=== PATIENT | male | born 1965 | race Hispanic/Latino ===

== ENCOUNTER 2021-11-19 22:45 | Emergency (ER) | payer OTHER ==
--- OUTSIDE RECORDS SUMMARY | 2021-11-19 22:52 | XMS REPORT | Continuity of Care Document ---
:[address] [facility] t Address [address] [place] [address] Care Team Providers Name Role Phone Sofiya MASTERS Primary Care Physician RENETTA Attending Clinician Unavailable RENETTA Attending Clinician Unavailable Clarita ELIZALDE Attending Clinician Unavailable Doctor Unassigned, Name Attending Clinician Unavailable Luis Arriaza MD Attending Clinician LUIS ARRIAZA Attending Clinician Unavailable Renetta WEST Attending Clinician Tyrese Schmidt DO Attending Clinician Obed SUNSHINE Attending Clinician Unavailable Teresa Iglesias Attending Clinician Skylar MASTERS Attending Clinician Lab, Fam Pob I Attending Clinician Unavailable DR BRIANNA Attending Clinician Unavailable Skylar MASTERS Admitting Clinician DR BRIANNA Admitting Clinician Unavailable Payers Payer Name Policy Type Policy Number Effective Date Expiration Date S [facility] - [id number] 2018 OUT OF STATE 00:00:00 [facility] [id number] 2020 00:00:00 Problems Condition Condition Condition Status Onset Resolution Last Treating Co mments Source Name Details Category Date Date Treatment Clinician Date Pneumonia Pneumonia Disease Active Uni vers due to due to 2- ity of COVID-19 COVID-19 00:00: [place] virus virus 00 Medical Branch Hypoxia Hypoxia Disease Active Univers 2-22 ity of 00:00: [address] Branch Type 2 Type 2 Disease Active [facility] [place] [facility] diabetes diabetes 04-14 ity of mellitus mellitus 00:00: [place] without without 00 Medical complicati complicati Br anch on, on, without without long-term long-term current current use of use of insulin insulin Allergies, Adverse Reactions, Alerts Allergy Allergy Status Severity Reaction(s) Onset Inactive Treating Comm ents Source Name Type Date Date Clinician Penicill Propensi Active Unknown - Uni vers in ty to See comments 04-07 ity of adverse 00:00: [place] reaction 00 Medical s Branch PENICILL DRUG Active Unknown-Cmnt Un colleen IN INGREDI 04-07 ity of 00:00: [place] 00 Medical Branch IODINE Drug Active Anaphylaxis Unive rs AND Class 04-07 ity of IODIDE 00:00: [place] CONTAINI 00 Medical Branch PRODUCTS Penicill Propensi Active Unknown - Uni vers in ty to See comments 04-07 ity of adverse 00:00: [place] reaction 00 Medical s Branch Iodine Propensi Active Anaphylaxis Uni vers And ty to 04-07 ity of Iodide adverse 00:00: [place] Containi reaction 00 Medica l ng s Branch Products Social History Social Habit Start Date Stop Date Quantity Comments Source Exposure to Not sure [facility] SARS-CoV-2 [place] [facility] (event) Branch Tobacco use and 2020-11-28 2020-11-28 Never used Universit y of exposure 00:00:00 00:00:00 [facility] Branch Alcohol intake 2020-11-28 2020-11-28 Current drinker Unive rsity of 00:00:00 00:00:00 of alcohol [place] [facility] (finding) Branch Sex Assigned At [address] 1965 [facility] 00:00:00 00:00:00 Smoking Status Start Date Stop Date Source Tobacco smoking [facility] consumption unknown Former smoker 2020-11-28 00:00:00 2020-11-28 [facility] [place] 00:00:00 Medical Branch Medications Ordered Filled Start Stop Current Ordering Indication Dosage Frequency Signature Comments Components Source Medication Medication Date Date Medication? Clinician (SIG) Name Name fenofibrate Yes [id number] 145mg Take 1 Univers 145 mg 3-23 tablet by ity of tablet 00:00: mouth [place] 00 daily. Medical Branch lisinopriL Yes [id number] 5mg Take 1 U nivers 5 mg tablet 3-23 tablet by ity of 00:00: mouth [place] 00 daily. Medical Branch metformin 2020-0 Yes [id number] 500mg Take 1 Univers ER 500 mg 3-23 tablet by ity o f 24 hr 00:00: mouth 2 [place] tablet 00 (two) Medical times Branch daily. fenofibrate 2020-0 Yes [id number] 145mg Take 1 Univers 145 mg 3-23 tablet by ity of tablet 00:00: mouth [place] 00 daily. Medical Branch lisinopriL 2020-0 Yes [id number] 5mg Take 1 U nivers 5 mg tablet 3-23 tablet by ity of 00:00: mouth [place] 00 daily. Medical Branch metformin 2020-0 Yes [id number] 500mg Take 1 Univers ER 500 mg 3-23 tablet by ity o f 24 hr 00:00: mouth 2 [place] tablet 00 (two) Medical times Branch daily. fenofibrate 2020-0 Yes [id number] 145mg Take 1 Univers 145 mg 3-23 tablet by ity of tablet 00:00: mouth [place] 00 daily. Medical Branch lisinopriL 2020-0 Yes [id number] 5mg Take 1 U nivers 5 mg tablet 3-23 tablet by ity of 00:00: mouth [place] 00 daily. Medical Branch metformin 2020-0 Yes [id number] 500mg Take 1 Univers ER 500 mg 3-23 tablet by ity o f 24 hr 00:00: mouth 2 [place] tablet 00 (two) Medical times Branch daily. fenofibrate 2020-0 Yes [id number] 145mg Take 1 Univers 145 mg 3-23 tablet by ity of tablet 00:00: mouth [place] 00 daily. Medical Branch lisinopriL 2020-0 Yes [id number] 5mg Take 1 U nivers 5 mg tablet 3-23 tablet by ity of 00:00: mouth [place] 00 daily. Medical Branch metformin 2020-0 Yes [id number] 500mg Take 1 Univers ER 500 mg 3-23 tablet by ity o f 24 hr 00:00: mouth 2 [place] tablet 00 (two) Medical times Branch daily. fenofibrate 2020-0 Yes [id number] 145mg Take 1 Univers 145 mg 3-23 tablet by ity of tablet 00:00: mouth [place] 00 daily. Medical Branch lisinopriL 2020-0 Yes [id number] 5mg Take 1 U nivers 5 mg tablet 3-23 tablet by ity of 00:00: mouth [place] 00 daily. Medical Branch metformin 0 Yes [id number] 500mg Take 1 Univers ER 500 mg 3-23 tablet by ity o f 24 hr 00:00: mouth 2 [place] tablet 00 (two) Medical times Branch daily. fenofibrate Yes [id number] 145mg Take 1 Univers 145 mg 3-23 tablet by ity of tablet 00:00: mouth [place] 00 daily. Medical Branch lisinopriL Yes [id number] 5mg Take 1 U nivers 5 mg tablet 3-23 tablet by ity of 00:00: mouth [place] 00 daily. Medical Branch metformin Yes [id number] 500mg Take 1 Univers ER 500 mg 3-23 tablet by ity o f 24 hr 00:00: mouth 2 [place] tablet 00 (two) Medical times Branch daily. fenofibrate Yes [id number] 145mg Take 1 Univers 145 mg 3-23 tablet by ity of tablet 00:00: mouth [place] 00 daily. Medical Branch lisinopriL Yes [id number] 5mg Take 1 U nivers 5 mg tablet 3-23 tablet by ity of 00:00: mouth [place] 00 daily. Medical Branch metformin Yes [id number] 500mg Take 1 Univers ER 500 mg 3-23 tablet by ity o f 24 hr 00:00: mouth 2 [place] tablet 00 (two) Medical times Branch daily. fenofibrate 0 Yes [id number] 145mg Take 1 Univers 145 mg 3-23 tablet by ity of tablet 00:00: mouth [place] 00 daily. Medical Branch lisinopriL Yes [id number] 5mg Take 1 U nivers 5 mg tablet 3-23 tablet by ity of 00:00: mouth [place] 00 daily. Medical Branch metformin Yes [id number] 500mg Take 1 Univers ER 500 mg 3-23 tablet by ity o f 24 hr 00:00: mouth 2 [place] tablet 00 (two) Medical times Branch daily. fenofibrate Yes [id number] 145mg Take 1 Univers 145 mg 3-23 tablet by ity of tablet 00:00: mouth [place] 00 daily. Medical Branch lisinopriL Yes [id number] 5mg Take 1 U nivers 5 mg tablet 3-23 tablet by ity of 00:00: mouth [place] 00 daily. Medical Branch metformin Yes [id number] 500mg Take 1 Univers ER 500 mg 3-23 tablet by ity o f 24 hr 00:00: mouth 2 [place] tablet 00 (two) Medical times Branch daily. Rough And Ready-3 Yes Take by [employer] Fatty Acids 3-11 mouth 2 ity o f (FISH OIL 00:23: (two) [place] CONCENTRATE 32 times Medical ) 1,000 mg daily. Branch Cap Rough And Ready-3 Yes Take by [employer] Fatty Acids 3-11 mouth 2 ity o f (FISH OIL 00:23: (two) [place] CONCENTRATE 32 times Medical ) 1,000 mg daily. Branch Cap Rough And Ready-3 Yes Take by [employer] Fatty Acids 3-11 mouth 2 ity o f (FISH OIL 00:23: (two) [place] CONCENTRATE 32 times Medical ) 1,000 mg daily. Branch Cap Rough And Ready-3 Yes Take by [employer] Fatty Acids 3-11 mouth 2 ity o f (FISH OIL 00:23: (two) [place] CONCENTRATE 32 times Medical ) 1,000 mg daily. Branch Cap Rough And Ready-3 Yes Take by [employer] Fatty Acids 3-11 mouth 2 ity o f (FISH OIL 00:23: (two) [place] CONCENTRATE 32 times Medical ) 1,000 mg daily. Branch Cap Rough And Ready-3 Yes Take by [employer] Fatty Acids 3-11 mouth 2 ity o f (FISH OIL 00:23: (two) [place] CONCENTRATE 32 times Medical ) 1,000 mg daily. Branch Cap Rough And Ready-3 Yes Take by [employer] Fatty Acids 3-11 mouth 2 ity o f (FISH OIL 00:23: (two) [place] CONCENTRATE 32 times Medical ) 1,000 mg daily. Branch Cap Rough And Ready-3 Yes Take by Univer s Fatty Acids 3-11 mouth 2 ity o f (FISH OIL 00:23: (two) [place] CONCENTRATE 32 times Medical ) 1,000 mg daily. Branch Cap Rough And Ready-3 Yes Take by Univer s Fatty Acids 3-11 mouth 2 ity o f (FISH OIL 00:23: (two) [place] CONCENTRATE 32 times Medical ) 1,000 mg daily. Branch Cap Rough And Ready-3 Yes Take by [facility] s Fatty Acids 3-11 mouth 2 ity o f (FISH OIL 00:23: (two) [place] CONCENTRATE 32 times Medical ) 1,000 mg daily. Branch Cap Rough And Ready-3 [facility] mouth 2 ity o f (FISH OIL 00:23: (two) [place] CONCENTRATE 32 times Medical ) 1,000 mg daily. Branch Cap Rough And Ready-3 0 Yes [facility]-11 mouth 2 ity o f (FISH OIL 00:23: (two) [place] CONCENTRATE 32 times Medical ) 1,000 mg daily. Branch Cap dexAMETHaso Yes 4mg 4 mg, Unive rs ne 3-10 Oral, ity of (DECADRON) 15:00: DAILY, [place] tablet 4 mg 00 First dose Me dical on Wed11/13/20 at 0900, Until Discontinu ed, Routine methylPREDN 2020-0 Yes [id number] Take by [facility] [place] [facility] ISolone 4 3-10 mouth ity of mg tablets 00:00: [place]-INSTRU [place] 00 CTIONS. Medical follow Branch package directions metoclopram 2020-0 Yes [id number] 5mg Take 1 Univers evgeny HCl 5 3-10 tablet by ity o f mg tablet 00:00: mouth [place] 00 every 8 Medical (eight) Branch hours as needed for Nausea and Vomiting (N/V) or Gastroesop hageal reflux. methylPREDN 2020-0 Yes [id number] Take by Univers ISolone 4 3-10 mouth ity of mg tablets 00:00: SEE-INSTRU [place] 00 CTIONS. Medical follow Branch package directions metoclopram 2020-0 Yes [id number] 5mg Take 1 Univers evgeny HCl 5 3-10 tablet by ity o f mg tablet 00:00: mouth [place] 00 every 8 Medical (eight) Branch hours as needed for Nausea and Vomiting (N/V) or Gastroesop hageal reflux. methylPREDN 2021-0 Yes [id number] Take by Univers ISolone 4 3-10 mouth ity of mg tablets 00:00: SEE-INSTRU [place] 00 CTIONS. Medical follow Branch package directions metoclopram 2021-0 Yes [id number] 5mg Take 1 Univers evgeny HCl 5 3-10 tablet by ity o f mg tablet 00:00: mouth [place] 00 every 8 Medical (eight) Branch hours as needed for Nausea and Vomiting (N/V) or Gastroesop hageal reflux. methylPREDN 2020- No [id number] Take by Univers ISolone 4 3-10 -23 mouth ity of mg tablets 00:00: 00:00 SEE-INSTRU [place] 00 :00 CTIONS. Medical follow Branch package directions metoclopram 2020- No [id number] 5mg Take 1 Univers evgeny HCl 5 3-10 -23 tablet by ity of mg tablet 00:00: 00:00 mouth [place] 00 :00 every 8 Medical (eight) Branch hours as needed for Nausea and Vomiting (N/V) or Gastroesop hageal reflux. methylPREDN 2020- No [id number] Take by [facility] [place] [facility] ISolone 4 3-10 - mouth ity of mg tablets 00:00: 00:00 SEE-INSTRU [place] 00 :00 CTIONS. Medical follow Branch package directions metoclopram 2020- No [id number] 5mg Take 1 Univers evgeny HCl 5 3-10 - tablet by ity of mg tablet 00:00: 00:00 mouth [place] 00 :00 every 8 Medical (eight) Branch hours as needed for Nausea and Vomiting (N/V) or Gastroesop hageal reflux. methylPREDN 2020- No [id number] Take by [facility] [place] [facility] ISolone 4 3-10 - mouth ity of mg tablets 00:00: 00:00 SEE-INSTRU [place] 00 :00 CTIONS. Medical follow Branch package directions metoclopram 2020- No [id number] 5mg Take 1 Univers evgeny HCl 5 3-10 -23 tablet by ity of mg tablet 00:00: 00:00 mouth [place] 00 :00 every 8 Medical (eight) Branch hours as needed for Nausea and Vomiting (N/V) or Gastroesop hageal reflux. enoxaparin Yes 40mg 40 mg, Unive rs (LOVENOX) 3-09 Subcutaneo ity of injection 14:00: us, Q24H, [place] 40 mg 00 First dose Medical on Wed Branch 11/12/20 at 0800, Until Discontinu ed, Routine insulin NPH Yes 10U 10 Units, U nivers (HUMULIN N) 11-08 Subcutaneo it y of injection 03:00: us, QHS, [place] 10 Units 00 First dose Medic al on [facility] Branch 11/07/20 at 2100, Until Discontinu ed, Routine insulin NPH Yes 20U 20 Units, U nivers (HUMULIN N) 11-07 Subcutaneo it y of injection 19:00: [place], DAILY, [place] 20 Units 00 First dose Medic al on [facility] Branch 11/07/20 at 1300, Until Discontinu ed, Routine metoclopram Yes 10mg 10 mg, Univ ers evgeny HCl 11-04 Slow IV ity of (REGLAN) 05:00: Push, Q8H, [place] injection 00 First dose Medi delores 10 mg on [facility] 11/03/20 at 2300, Until Discontinu ed, Routine pantoprazol Yes 40mg 40 mg, IV U nivers e 11-04 Piggyback, ity of (PROTONIX) 05:00: Q12H, [place] 40 mg in 00 First dose Medic al NaCl 0.9% on [facility] (NS) 100 mL 11/03/20 at MINI-BAG 2300, Until Discontinu ed, 100 mL baclofen 2020- No 5mg 5 mg, Univers (LIORESAL) 11-04 Oral, BID, it y of tablet 5 mg 05:00: 03:06 3 doses, [place] 00 :00 First dose Medical on [facility] 11/03/20 at 2300, Last dose on Wed11/04/20 at 2000, Routine famotidine 2020- No 20mg 20 mg, Univ ers (PEPCID AC) 11-04 Oral, BID, i ty of tablet 20 02:00: 04:54 First dose [place] mg 00 :12 (after Medical last Branch modificati on) on [place] 11/03/20 at 2000, Until Discontinu ed, Routine maalox:diph Yes 15mL 15 mL, Univ ers enhydrAMINE 11-03 Oral, ity of :lidocaine 23:29: Q4HPRN, [place] 2 % viscous 23 Starting Medi delores 1:1:1 [place] Branch (FIRST-MOUT 11/03/20 at [facility]) 1729, oral Until suspension Discontinu 15 mL ed, Routine, GERD famotidine 2020- No 20mg 20 mg, [facility] ers (PEPCID AC) 11-02 03-01 Oral, ity of tablet 20 02:58: 00:48 BIDPRN, [place] mg 06 :21 Starting Medical Fri Branch 11/01/20 at 2058, Until 11/03/20 at 1848, Routine, Heartburn sodium Yes 1{spray 1 [place], [facility] ers chloride 10-30 } Nasal, ity of (OCEAN MIST 16:34: PRN, [place] NASAL) 0.65 33 Starting Medi delores % nasal Wed Branch spray 1 10/30/20 at [place] 1034, Until Discontinu ed, Routine, Surgery/Pr ocedure, use as needed for irritation from high flow oxygen furosemide Yes 20mg 20 mg, IV Un colleen (LASIX) 10-30 Push, ity of injection 15:00: DAILY, [place] 20 mg 00 First dose Medical on Wed Branch 10/30/20 at 0900, Until Discontinu ed, Routine fenofibrate Yes 134mg 134 mg, Un colleen micronized 23 Oral, ity of (LOFIBRA) 15:00: DAILY, [place] capsule 134 00 First dose Me dical mg on Wed Branch 10/29/20 at 0900, Until Discontinu ed ergocalcife Yes [id number] 50,000 Un colleen rol 23 Units, ity of (vitamin 15:00: Oral, [place] d2) 00 QWEEKLY, Medical (CALCIFEROL First dose Br anch ) capsule on Tue 50,000 10/29/20 at Units 0900, Until Discontinu ed, Routine dexamethaso 2020- No 6mg 6 mg, IV U nivers ne 10-29 03-10 Piggyback, ity of (DECADRON 15:00: 00:12 DAILY, [place] PHOSPHATE) 00 :07 First dose Med ical 6 mg in on Wed Branch NaCl 0.9% 2/23/21 at (NS) 50 mL 0900, piggyback Until Discontinu ed, 50 mL enoxaparin 2020- No 40mg 40 mg, Univ ers (LOVENOX) 10-29-08 Subcutaneo ity of injection 15:00: 21:57 us, DAILY, [place] 40 mg 00 :50 First dose Medical on [facility] 10/29/20 at 0900, Until Discontinu ed, Routine lisinopriL 2020- No 5mg 5 mg, Unive rs (PRINIVIL,Z 10-29 Oral, ity of ESTRIL) 15:00: 04:54 DAILY, [place] tablet 5 mg 00 :12 First dose Me dical on [facility] 10/29/20 at 0900, Until Discontinu ed, Routine zinc Yes 220mg 220 mg, Univers sulfate 10-29 Oral, TID, ity of (ORAZINC) 14:00: First dose [place] capsule 220 00 on [facility] Medica l mg 10/29/20 at Branch 0800, Until Discontinu ed, Routine ascorbic Yes 500mg 500 mg, Unive rs acid 10-29 Oral, BID, ity of (vitamin C) 14:00: First dose [place] (VITAMIN C) 00 on e Medica l tablet 500 10/29/20 at [facility] mg 0800, Until Discontinu ed, Routine Sliding Yes Subcutaneo Univ ers Scale 10-29 us, AC, ity of Insulin-Reg 13:30: First dose [place] ular + Fsbg 00 on [facility] Medica l Testing 10/29/20 at Branch 0730, Until Discontinu ed, Routine temazepam Yes 15mg 15 mg, Univer s (RESTORIL) 2-23 Oral, ity of capsule 15 12:01: QHSPRN, [place] mg 25 Starting Medical [facility] 10/29/20 at 0601, Until Discontinu ed, Routine, Insomnia Rough And Ready-3 Yes Take by Univer s Fatty Acids 2-23 mouth 2 ity o f (FISH OIL 12:01: (two) [place] CONCENTRATE 03 times Medical ) 1,000 mg daily. Branch Cap zolpidem 2020- No 5mg 5 mg, Univers (AMBIEN) 2-23 02-23 Oral, ity of tablet 5 mg 05:33: 12:01 QHSPRN, [place] 49 :38 Starting Medical Mon Branch 10/28/20 at 2333, Until 10/29/20 at 0601, Routine, Insomnia benzocaine- Yes 1{lozen 1 Lozenge, Univers menthoL 2-23 ge} Oral, ity of (CEPACOL 05:32: Q4HPRN, [place] SORE THROAT 33 Starting Medi delores (AISSATOU-MEN)) Mon Branch lozenge 1 10/28/20 at Lozenge 2332, Until Discontinu ed, Routine, Sore throat codeine-gua Yes 5mL 5 mL, Unive rs ifenesin 2 Oral, ity of (ROBITUSSIN 05:31: Q6HPRN, [place] AC) 10-100 44 Starting Medic al mg/5 mL Mon Branch solution 5 10/28/20 at mL 2331, Until Discontinu ed, Routine, Cough albuterol Yes 2{puff} 2 Puff, Un colleen (VENTOLIN) 23 Inhalation ity of inhaler 2 04:22: , Q6HPRN, [place] Puff 50 Starting Medical [facility] Branch 10/28/20 at 2222, Until Discontinu ed, Routine, Wheezing, Shortness of Breath, Bronchospa sm, Chest tightness< br>Is this order for a patient with suspected or confirmed COVID-19 infection? Yes glucagon 2020-0 Yes 1mg 1 mg, Univers (GLUCAGEN 10-29 Intramuscu ity of DIAGNOSTIC 04:21: [place], PRN, [place] KIT) 19 Starting Medical injection 1 [facility] Branch mg 10/28/20 at 2221, Until Discontinu ed, DENG, Blood Glucose < or = 70 mg/dL and patient is unable to swallow or has mental changes. dextrose 50 Yes 25mL 25 mL, Univ ers % in water 2-23 Slow IV ity of (D50W) 04:21: Push, PRN, [place] injection 19 Starting Medica l 25 mL [facility] Branch 10/28/20 at 2221, Until Discontinu ed, DENG, Blood Glucose < or = 70 mg/dL and patient is unable to swallow or has mental status changes. ondansetron Yes 4mg 4 mg, Slow Univers (ZOFRAN 2-23 IV Push, ity of (PF)) 04:21: Q6HPRN, [place] injection 4 10 Starting Medi delores mg [facility] 10/28/20 at 2221, Until Discontinu ed, Routine, Nausea and Vomiting (N/V) acetaminoph Yes 650mg 650 mg, Un colleen en 2-23 Oral, ity of (TYLENOL) 04:21: Q6HPRN, [place] tablet 650 01 Starting Medic al mg [facility] 10/28/20 at 2221, Until Discontinu ed, Routine, Pain (scale 1-3) lisinopriL Yes [id number] 5mg Take 1 U nivers 5 mg tablet 1-26 tablet by ity of 00:00: mouth [place] 00 daily. [facility] lisinopriL Yes [id number] 5mg Take 1 U nivers 5 mg tablet 1-26 tablet by ity of 00:00: mouth [place] 00 daily. [facility] lisinopriL Yes [id number] 5mg Take 1 U nivers 5 mg tablet 1-26 tablet by ity of 00:00: mouth [place] 00 daily. [facility] lisinopriL 0 Yes [id number] 5mg Take 1 U nivers 5 mg tablet 1-26 tablet by ity of 00:00: mouth [place] 00 daily. [facility] lisinopriL 0 Yes [id number] 5mg Take 1 U nivers 5 mg tablet 1-26 tablet by ity of 00:00: mouth [place] 00 daily. [facility] lisinopriL 0 2020- No [id number] 5mg Take 1 Univers 5 mg tablet 10-01- tablet by it y of 00:00: 00:00 mouth [place] 00 :00 daily. [facility] lisinopriL 0 2020- No [id number] 5mg Take 1 Univers 5 mg tablet 10-01- tablet by it y of 00:00: 00:00 mouth [place] 00 :00 daily. [facility] lisinopriL 2020-0 2020- No [id number] 5mg Take 1 Univers 5 mg tablet 10-01- tablet by it y of 00:00: 00:00 mouth [place] 00 :00 daily. Medical Branch fenofibrate 2020-0 Yes [id number] 145mg Take 1 Univers 145 mg 1-23 tablet by ity of tablet 00:00: mouth [place] 00 daily. Medical Branch metformin 2020-0 Yes [id number] 500mg Take 1 Univers ER 500 mg 1-23 tablet by ity o f 24 hr 00:00: mouth 2 [place] tablet 00 (two) Medical times Branch daily. lisinopril 2020-0 Yes [id number] 5mg Take 1 U nivers 5 mg tablet 1-23 tablet by ity of 00:00: mouth [place] 00 daily. Medical Branch fenofibrate 2020-0 Yes [id number] 145mg Take 1 Univers 145 mg 1-23 tablet by ity of tablet 00:00: mouth [place] 00 daily. Medical Branch metformin 2020-0 Yes [id number] 500mg Take 1 Univers ER 500 mg 1-23 tablet by ity o f 24 hr 00:00: mouth 2 [place] tablet 00 (two) Medical times Branch daily. lisinopril 2020-0 Yes [id number] 5mg Take 1 U nivers 5 mg tablet 1-23 tablet by ity of 00:00: mouth [place] 00 daily. Medical Branch fenofibrate 2020-0 Yes [id number] 145mg Take 1 Univers 145 mg 1-23 tablet by ity of tablet 00:00: mouth [place] 00 daily. Medical Branch metformin 2020-0 Yes [id number] 500mg Take 1 Univers ER 500 mg 1-23 tablet by ity o f 24 hr 00:00: mouth 2 [place] tablet 00 (two) Medical times Branch daily. lisinopril 2020-0 Yes [id number] 5mg Take 1 U nivers 5 mg tablet 1-23 tablet by ity of 00:00: mouth [place] 00 daily. Medical Branch fenofibrate 2020-0 Yes [id number] 145mg Take 1 Univers 145 mg 1-23 tablet by ity of tablet 00:00: mouth [place] 00 daily. Medical Branch metformin 2020-0 Yes [id number] 500mg Take 1 Univers ER 500 mg 1-23 tablet by ity o f 24 hr 00:00: mouth 2 [place] tablet 00 (two) Medical times Branch daily. lisinopril 2020-0 Yes [id number] 5mg Take 1 U nivers 5 mg tablet 1-23 tablet by ity of 00:00: mouth [place] 00 daily. Medical Branch fenofibrate 2020-0 Yes [id number] 145mg Take 1 Univers 145 mg 1-23 tablet by ity of tablet 00:00: mouth [place] 00 daily. Medical Branch metformin 2020-0 Yes [id number] 500mg Take 1 Univers ER 500 mg 1-23 tablet by ity o f 24 hr 00:00: mouth 2 [place] tablet 00 (two) Medical times Branch daily. fenofibrate 2020-0 Yes [id number] 145mg Take 1 Univers 145 mg 1-23 tablet by ity of tablet 00:00: mouth [place] 00 daily. Medical Branch metformin 2020-0 Yes [id number] 500mg Take 1 Univers ER 500 mg 1-23 tablet by ity o f 24 hr 00:00: mouth 2 [place] tablet 00 (two) Medical times Branch daily. fenofibrate 2020-0 Yes [id number] 145mg Take 1 Univers 145 mg 1-23 tablet by ity of tablet 00:00: mouth [place] 00 daily. Medical Branch metformin 2020-0 Yes [id number] 500mg Take 1 Univers ER 500 mg 1-23 tablet by ity o f 24 hr 00:00: mouth 2 [place] tablet 00 (two) Medical times Branch daily. fenofibrate 2020-0 Yes [id number] 145mg Take 1 Univers 145 mg 1-23 tablet by ity of tablet 00:00: mouth [place] 00 daily. Medical Branch metformin 2020-0 Yes [id number] 500mg Take 1 Univers ER 500 mg 1-23 tablet by ity o f 24 hr 00:00: mouth 2 [place] tablet 00 (two) Medical times Branch daily. fenofibrate 2020-0 Yes [id number] 145mg Take 1 Univers 145 mg 1-23 tablet by ity of tablet 00:00: mouth [place] 00 daily. Medical Branch metformin 2020-0 Yes [id number] 500mg Take 1 Univers ER 500 mg 1-23 tablet by ity o f 24 hr 00:00: mouth 2 [place] tablet 00 (two) Medical times Branch daily. fenofibrate 2020-0 Yes [id number] 145mg Take 1 Univers 145 mg 1-23 tablet by ity of tablet 00:00: mouth [place] 00 daily. Medical Branch metformin 2020-0 Yes [id number] 500mg Take 1 Univers ER 500 mg 1-23 tablet by ity o f 24 hr 00:00: mouth 2 [place] tablet 00 (two) Medical times Branch daily. lisinopril Yes [id number] 5mg Take 1 U nivers 5 mg tablet 1-23 tablet by ity of 00:00: mouth [place] 00 daily. Medical Branch fenofibrate Yes [id number] 145mg Take 1 Univers 145 mg 1-23 tablet by ity of tablet 00:00: mouth [place] 00 daily. Medical Branch metformin Yes [id number] 500mg Take 1 Univers ER 500 mg 1-23 tablet by ity o f 24 hr 00:00: mouth 2 [place] tablet 00 (two) Medical times Branch daily. lisinopril Yes [id number] 5mg Take 1 U nivers 5 mg tablet 1-23 tablet by ity of 00:00: mouth [place] 00 daily. Medical Branch fenofibrate 2020- No [id number] 145mg Take 1 Univers 145 mg 1-23 03-23 tablet by ity of tablet 00:00: 00:00 mouth [place] 00 :00 daily. Medical Branch metformin 2020- No [id number] 500mg Take 1 Univers ER 500 mg 1-23 -23 tablet by ity of 24 hr 00:00: 00:00 mouth 2 [place] tablet 00 :00 (two) Medical times Branch daily. fenofibrate 2020- No [id number] 145mg Take 1 Univers 145 mg 1-23 03-23 tablet by ity of tablet 00:00: 00:00 mouth [place] 00 :00 daily. Medical Branch metformin 2020- No [id number] 500mg Take 1 Univers ER 500 mg 1-23 -23 tablet by ity of 24 hr 00:00: 00:00 mouth 2 [place] tablet 00 :00 (two) Medical times Branch daily. fenofibrate 2020- No [id number] 145mg Take 1 Univers 145 mg 1-23 03-23 tablet by ity of tablet 00:00: 00:00 mouth [place] 00 :00 daily. Medical Branch metformin 2020- No [id number] 500mg Take 1 Univers ER 500 mg 1-23 03-23 tablet by ity of 24 hr 00:00: 00:00 mouth 2 [place] tablet 00 :00 (two) Medical times Branch daily. lisinopril 2020- No [id number] 5mg Take 1 Univers 5 mg tablet 1-23 01-26 tablet by it y of 00:00: 00:00 mouth [place] 00 :00 daily. Medical Branch Rough And Ready-3 Yes Take by gamigo Fatty Acids 7-11 mouth 2 ity o f (FISH OIL 13:37: (two) [place] CONCENTRATE 44 times Medical ) 1,000 mg daily. Branch Cap Rough And Ready-3 Yes Take by gamigo Fatty Acids 7-11 mouth 2 ity o f (FISH OIL 13:37: (two) [place] CONCENTRATE 44 times Medical ) 1,000 mg daily. Branch Cap Rough And Ready-3 Yes Take by gamigo Fatty Acids 7-11 mouth 2 ity o f (FISH OIL 13:37: (two) [place] CONCENTRATE 44 times Medical ) 1,000 mg daily. Branch Cap Rough And Ready-3 Yes Take by gamigo Fatty Acids 7-11 mouth 2 ity o f (FISH OIL 13:37: (two) [place] CONCENTRATE 44 times Medical ) 1,000 mg daily. Branch Cap Rough And Ready-3 Yes Take by gamigo Fatty Acids 7-11 mouth 2 ity o f (FISH OIL 13:37: (two) [place] CONCENTRATE 44 times Medical ) 1,000 mg daily. Branch Cap Rough And Ready-3 Yes Take by gamigo Fatty Acids 7-11 mouth 2 ity o f (FISH OIL 13:37: (two) [place] CONCENTRATE 44 times Medical ) 1,000 mg daily. Branch Cap Rough And Ready-3 Yes Take by gamigo Fatty Acids 7-11 mouth 2 ity o f (FISH OIL 13:37: (two) [place] CONCENTRATE 44 times Medical ) 1,000 mg daily. Branch Cap Rough And Ready-3 Yes Take by gamigo Fatty Acids 7-11 mouth 2 ity o f (FISH OIL 13:37: (two) [place] CONCENTRATE 44 times Medical ) 1,000 mg daily. Branch Cap LISINOPRIL Yes [id number] 5mg TAKE 1 U nivers 5 mg tablet 2 TABLET BY ity of 00:00: MOUTH [place] 00 DAILY. Medical Branch LISINOPRIL 2020- No [id number] 5mg TAKE 1 Univers 5 mg tablet 10-07 TABLET BY it y of 00:00: 00:00 MOUTH [place] 00 :00 DAILY. Medical Branch LISINOPRIL 2019- No [id number] 5mg TAKE 1 Univers 5 mg tablet 10-07 TABLET BY it y of 00:00: 00:00 MOUTH [place] 00 :00 DAILY. Medical Branch LISINOPRIL 2020- No [id number] 5mg TAKE 1 Univers 5 mg tablet 10-07 TABLET BY it y of 00:00: 00:00 MOUTH [place] 00 :00 DAILY. Medical Branch LISINOPRIL 2019- No [id number] 5mg TAKE 1 Univers 5 mg tablet 10-07 TABLET BY it y of 00:00: 00:00 MOUTH [place] 00 :00 DAILY. Medical Branch METFORMIN 2017-09 Yes [id number] TAKE 1 U nivers ER 500 mg 0-04 TABLET BY ity o f 24 hr 00:00: MOUTH [place] tablet 00 TWICE A Medical DAY Branch METFORMIN 2017-09 2020- No [id number] TAKE 1 Univers ER 500 mg 0-04 -23 TABLET BY ity of 24 hr 00:00: 00:00 MOUTH [place] tablet 00 :00 TWICE A Medical DAY Branch METFORMIN 2017-09- No [id number] TAKE 1 Univers ER 500 mg 0-04 -23 TABLET BY ity of 24 hr 00:00: 00:00 MOUTH [place] tablet 00 :00 TWICE A Medical DAY Branch METFORMIN 2017- 2020- No [id number] TAKE 1 Univers ER 500 mg 0-04 -23 TABLET BY ity of 24 hr 00:00: 00:00 MOUTH [place] tablet 00 :00 TWICE A Medical DAY Branch METFORMIN 2017- 2020- No [id number] TAKE 1 Univers ER 500 mg 0-04 -23 TABLET BY ity of 24 hr 00:00: 00:00 MOUTH [place] tablet 00 :00 TWICE A Medical DAY Branch fenofibrate Yes [id number] 145mg Take 1 Univers 145 mg 8-30 tablet by ity of tablet 00:00: mouth [place] 00 daily. Medical Branch fenofibrate 2020- No [id number] 145mg Take 1 Univers 145 mg 8-30 01-23 tablet by ity of tablet 00:00: 00:00 mouth [place] 00 :00 daily. Medical Branch fenofibrate 2020- No [id number] 145mg Take 1 [facility] 145 mg 8-30 01-23 tablet by ity of tablet 00:00: 00:00 mouth [place] 00 :00 daily. Medical Branch fenofibrate 2020- No [id number] 145mg Take 1 [facility] 145 mg 8-30 - tablet by ity of tablet 00:00: 00:00 mouth [place] 00 :00 daily. Medical Branch fenofibrate 2019- No [id number] 145mg Take 1 Univers 145 mg 8-30 - tablet by ity of tablet 00:00: 00:00 mouth [place] 00 :00 daily. Medical Branch Vital Signs Vital Name Observation Time Observation Value Comments Source Systolic blood 2020-12-10 18:55:00 144 mm[Hg] Univer sity of [facility] Diastolic blood 2020-12-10 18:55:00 83 mm[Hg] Unive rsity of [facility] Heart rate 2020-12-10 18:55:00 72 /min Universi ty of [facility] [place] [facility] Body height 2020-12-10 18:55:00 177.8 cm Universi ty of [facility] [place] [facility] Body weight 2020-12-10 18:55:00 81.647 kg Universi ty [facility] BMI 2020-12-10 18:55:00 25.83 kg/m2 Universi ty of [facility] [place] [facility] Oxygen saturation in 2020-12-10 18:55:00 94 /min University of Arterial blood by [employer] Pulse oximetry Branch Systolic blood 2020-11-28 19:09:00 128 mm[Hg] Univer sity of [facility] Diastolic blood 2020-11-28 19:09:00 82 mm[Hg] Unive rsity of [facility] Heart rate 2020-11-28 19:09:00 106 /min Universi ty of [facility] Respiratory rate 2020-11-28 19:09:00 19 /min Univ ersity of [facility] Body height 2020-11-28 19:09:00 177.8 cm Universi ty [facility] [place] [facility] Body weight 2020-11-28 19:09:00 78.79 kg [facility]i [facility] [place] [facility] [place] BMI 2020-11-28 19:09:00 24.92 kg/m2 Universi ty of [facility] [place] [facility] Oxygen saturation in 2020-11-28 19:09:00 93 /min University of Arterial blood by [employer] Pulse oximetry Branch Systolic blood 2020-11-26 15:31:00 121 mm[Hg] Univer sity of [facility] [place] [facility] Diastolic blood 2020-11-26 15:31:00 73 mm[Hg] Unive rsity of [facility] [place] [facility] Heart rate 2020-11-26 15:31:00 80 /min Universi ty [facility] [place] [facility] Body temperature 2020-11-26 15:31:00 36.83 Jenny Univ ersity [facility] [place] [facility] Body weight 2020-11-26 15:31:00 77.565 kg [facility]i ty [facility] [place] [facility] BMI 2020-11-26 15:31:00 24.54 kg/m2 [facility]i [facility] [place] [facility] Oxygen saturation in 2020-11-26 15:31:00 89 /min University of Arterial blood by [place] [employer] [place] Pulse oximetry Branch Body temperature 2020-11-13 22:12:00 36.61 Jenny [facility] [place] [facility] Systolic blood 2020-11-13 18:21:00 116 mm[Hg] Univer sity of [facility] [place] [facility] Diastolic blood 2020-11-13 18:21:00 64 mm[Hg] Unive rsity of [facility] [place] [facility] Respiratory rate 2020-11-13 18:21:00 18 /min Univ ersity [facility] [place] [facility] Oxygen saturation in 2020-11-13 18:21:00 90 /min University of Arterial blood by [place] [employer] [facility] Pulse oximetry Branch Heart rate 2020-11-13 14:00:00 49 /min Universi ty [facility] [place] [facility] Body weight 2020-11-03 10:00:00 80.967 kg [facility]i [facility] [place] [facility] BMI 2020-11-03 10:00:00 25.61 kg/m2 [facility] [place] [facility] Body height 2020-10-29 04:20:00 177.8 cm [facility] [place] [facility] Systolic blood 2019-09-28 15:41:00 119 mm[Hg] Univer sity of [facility] [place] [facility] Diastolic blood 2019-09-28 15:41:00 70 mm[Hg] Unive rsity of [facility] [place] [facility] Heart rate 2019-09-28 15:41:00 69 /min [facility]i [facility] [place] [facility] Body temperature 2019-09-28 15:41:00 36.44 Jenny Univ ers[facility] [place] [facility] Respiratory rate 2019-09-28 15:41:00 18 /min [facility] Body height 2019-09-28 15:41:00 177.8 cm [facility] Body weight 2019-09-28 15:41:00 91.627 kg [facility] BMI 2019-09-28 15:41:00 28.98 kg/m2 [facility] Procedures Procedure Date / Time Performing Clinician Source Performed DISCLOSURE AND CONSENT, 2020-12-11 05:01:00 Doctor Unassigned, U [facility] MEDICAL AND SURGICAL [facility] PROCEDURES POCT GLUCOSE (AUTOMATED) 2020-11-13 22:10:00 Edionnamita, Esperanza AF[facility] BASIC METABOLIC PANEL 2020-11-13 12:32:00 Lucy Kaur [facility] (NA, K, CL, CO2, GLUCOSE, Medica l Branch BUN, CREATININE, CA) CBC WITH DIFF 2020-11-13 10:59:00 Lucy Kaur [facility] [place] [facility] POCT GLUCOSE (AUTOMATED) 2020-11-13 02:54:00 [facility] 2020-11-12 22:30:00 Edionwe, [facility] Uni [facility] POCT GLUCOSE (AUTOMATED) 2020-11-12 17:51:00 [facility] 2020-11-12 13:19:00 [facility]) 2020-11-12 02:12:00 Edionwe, [facility] Uni versity of [facility] [place] [facility] POCT GLUCOSE (AUTOMATED) 2020-11-11 23:11:00 [facility]ionwe, [facility] [place] [facility] POCT GLUCOSE (AUTOMATED) 2020-11-11 17:36:00 Edionwe, [facility] Uni versity of [facility] [place] [facility] POCT GLUCOSE (AUTOMATED) 2020-11-11 13:27:00 Edionwe, [facility] Uni [facility] BASIC METABOLIC PANEL 2020-11-11 11:06:00 Lucy Kaur [facility] (NA, K, CL, CO2, GLUCOSE, Medica l Branch BUN, CREATININE, CA) CBC WITH DIFF 2020-11-11 11:06:00 Vincent [facility] POCT GLUCOSE (AUTOMATED) 2020-11-11 01:32:00 Edionwe, Bhargaviy Uni versity of [facility] [place] [facility] POCT GLUCOSE (AUTOMATED) 2020-11-10 21:23:00 Edionwe, [facility] Uni versity of [facility] [place] [facility] POCT GLUCOSE (AUTOMATED) 2020-11-10 13:35:00 Edionwe, [facility] Uni versity of [facility] POCT GLUCOSE (AUTOMATED) 2020-11-10 01:30:00 Edionwe, [facility] Uni versity of [facility] [place] [facility] POCT GLUCOSE (AUTOMATED) 2020-11-09 22:14:00 Edionwe, [facility] Uni versity of [facility] [place] [facility] POCT GLUCOSE (AUTOMATED) 2020-11-09 18:00:00 Edionwe, Bhargaviy Uni versity of [facility] [place] [facility] POCT GLUCOSE (AUTOMATED) 2020-11-09 14:31:00 Edionwe, [facility] Uni versity of [facility] [place] [facility] BASIC METABOLIC PANEL 2020-11-09 10:46:00 Vincent [facility] (NA, K, CL, CO2, GLUCOSE, Medica l Branch BUN, CREATININE, CA) CBC WITH DIFF 2020-11-09 10:46:[address] [facility] [place] [place] POCT GLUCOSE (AUTOMATED) 2020-11-09 02:11:00 Edionwe, Bhargaviy Uni versity of [facility] [place] [facility] POCT GLUCOSE (AUTOMATED) 2020-11-08 22:26:00 Edionwe, [facility] Uni versity of [facility] [place] [facility] POCT GLUCOSE (AUTOMATED) 2020-11-08 17:33:00 Edionwe, [facility] Uni versity of [facility] [place] [facility] POCT GLUCOSE (AUTOMATED) 2020-11-08 14:23:00 Edionwe, [facility] Uni versity of [facility] [place] [facility] POCT GLUCOSE (AUTOMATED) 2020-11-08 02:13:00 Edionwe, [facility] Uni versity of [facility] [place] [facility] POCT GLUCOSE (AUTOMATED) 2020-11-07 22:04:00 Edionwe, [facility] Uni versity of [facility] POCT GLUCOSE (AUTOMATED) 2020-11-07 17:44:00 Edionnamita, [facility] Uni versity of [facility] POCT GLUCOSE (AUTOMATED) 2020-11-07 13:41:00 Edaaliyah [facility] Uni versity of [facility] COMP. METABOLIC PANEL 2020-11-07 10:43:00 [id number] CBC WITH DIFF 2020-11-07 10:43[facility] 2020-11-07 10:43:00 [facility] (A[facility]) [facility] PROCALCITONIN 2020-11-07 10:43:00 [facility] PO[facility] GLUCOSE (AUTOMATED) 2020-11-07 06:26:00 Edaaliyah Bhargaviy Uni versity of [facility] [place] [facility] POCT GLUCOSE (AUTOMATED) 2020-11-07 02:04:00 Edionwe Bhargaviy Uni versity of [facility] POCT GLUCOSE (AUTOMATED) 2020-11-06 21:59:00 Edionwe, [facility] Uni versity of [facility] POCT GLUCOSE (AUTOMATED) 2020-11-06 17:33:00 Edionwe, [facility] Uni versity of [facility] POCT GLUCOSE (AUTOMATED) 2020-11-06 13:58:00 Edionwe, [facility] [place] [facility] POCT GLUCOSE (AUTOMATED) 2020-11-06 05:56:00 Edionwe, [facility] [place] [facility] POCT GLUCOSE (AUTOMATED) 2020-11-06 01:57:00 Edionwe, [facility] [place] [facility] POCT GLUCOSE (AUTOMATED) 2020-11-05 22:15:00 Edionwe, [facility] [place] [facility] POCT GLUCOSE (AUTOMATED) 2020-11-05 17:20:00 Edionwe, [facility] Uni versity of [facility] POCT GLUCOSE (AUTOMATED) 2020-11-05 13:25:00 Edionwe, [facility] Uni versity of [facility] POCT GLUCOSE (AUTOMATED) 2020-11-05 12:16:00 Edionwe, [facility] Uni versity of [facility] [place] [facility] POCT GLUCOSE (AUTOMATED) 2020-11-05 05:24:00 Edionwe, [facility] Uni versity of [facility] [place] [facility] POCT GLUCOSE (AUTOMATED) 2020-11-04 22:38:00 Edionwe, [facility] Uni versity of [facility] [place] [facility] POCT GLUCOSE (AUTOMATED) 2020-11-04 18:09:00 Edionwe, [facility] Uni versity of [facility] [place] [facility] POCT GLUCOSE (AUTOMATED) 2020-11-04 14:07:00 Edionwe, [facility] Uni versity of [facility] [place] [facility] POCT GLUCOSE (AUTOMATED) 2020-11-04 01:45:00 Edionwe, [facility] Uni versity of [facility] [place] [facility] POCT GLUCOSE (AUTOMATED) 2020-11-03 21:49:00 Edionwe, [facility] Uni versity of [facility] [place] [facility] POCT GLUCOSE (AUTOMATED) 2020-11-03 17:35:00 Edionwe, [facility] Uni versity of [facility] [place] [facility] POCT GLUCOSE (AUTOMATED) 2020-11-03 13:38:00 Edionwe, [facility] Uni versity of [facility] [place] [facility] COMP. METABOLIC PANEL 2020-11-03 10:40:00 Shmuel Manuel [facility] ([id number]) [facility] Branch CBC WITH DIFF 2020-11-03 10:40:00 Shmuel Manuel [facility] [place] [facility] POCT GLUCOSE (AUTOMATED) 2020-11-03 04:06:00 Edionwe, Bhargaviy Uni versity of [facility] [place] [facility] POCT GLUCOSE (AUTOMATED) 2020-11-02 21:29:00 Edionwe, [facility] Uni versity of [facility] [place] [facility] POCT GLUCOSE (AUTOMATED) 2020-11-02 17:57:00 Edionwe, [facility] Uni versity of [facility] [place] [facility] POCT GLUCOSE (AUTOMATED) 2020-11-02 14:03:00 Edionwe, [facility] Uni versity of [facility] [place] [facility] POCT GLUCOSE (AUTOMATED) 2020-11-01 17:45:00 Edionwe, [facility] Uni versity of [facility] [place] [facility] POCT GLUCOSE (AUTOMATED) 2020-11-01 14:25:00 Edionwe, [facility] Uni versity of [facility] Branch THYROID STIMULATING 2020-11-01 10:26:00 Shmuel Manuel [facility] HORMONE [facility] N-TERMINAL PRO-BNP 2020-11-01 10:26:00 Lucy Kaur [facility] POCT GLUCOSE (AUTOMATED) 2020-11-01 10:25:00 Skylar [facility] POCT GLUCOSE (AUTOMATED) 2020-11-01 04:33:00 Skylar [facility] POCT GLUCOSE (AUTOMATED) 2020-11-01 02:14:00 Skylar [facility] POCT GLUCOSE (AUTOMATED) 2020-10-31 22:48:00 Skylar [facility] POCT GLUCOSE (AUTOMATED) 2020-10-31 17:56:00 Skylar [facility] POCT GLUCOSE (AUTOMATED) 2020-10-31 13:47:00 Skylar [facility] TROPONIN I 2020-10-31 10:48:00 Skylar [facility] COMP. METABOLIC PANEL 2020-10-31 10:48:00 Skylar [facility] ([id number]) [facility] DIFF CONSULT 2020-10-31 10:48:[address] [facility] INTERPRETATION [facility] CBC WITH DIFF 2020-10-31 10:48:00 Skylar [facility] N-TERMINAL PRO-BNP 2020-10-31 10:48:00 Lucy Kaur [facility] POCT GLUCOSE (AUTOMATED) 2020-10-30 23:09:00 Skylar [facility] POCT GLUCOSE (AUTOMATED) 2020-10-30 17:34:00 Skylar [facility] PREPARE PLASMA 2020-10-30 16:47:36 Kaiden Echeverria [facility] POCT GLUCOSE (AUTOMATED) 2020-10-30 14:27:00 Skylar [facility] FERRITIN SERUM 2020-10-30 10:13:00 Skylar [facility] TRANSFERRIN 2020-10-30 10:13:00 Skylar [facility] VITAMIN B12, LEVEL 2020-10-30 10:13:00 Skylar [facility] FOLATE 2020-10-30 10:13:00 Skylar [facility] TOTAL IRON BINDING 2020-10-30 10:13:00 Skylar [facility] TROPONIN I 2020-10-30 10:13:00 Edionnamita [facility] COMP. METABOLIC PANEL 2020-10-30 10:13:00 [id number] IRON PANEL 2020-10-30 10:13:00 Skylar [facility] CBC WITH DIFF 2020-10-30 10:13:00 Skylar [facility] N-TERMINAL PRO-BNP 2020-10-30 10:13:00 Lucy Kaur [facility] ABORH CONFIRMATION 2020-10-30 06:15:00 Paolo Ayala [facility] HB ABO GROUPING 2020-10-30 04:30:00 Kaiden Echeverria [facility] PNEUMOCOCCAL ANTIGEN 2020-10-29 23:09:00 Skylar [facility] LEGIONELLA URINARY 2020-10-29 23:08:[facility] POCT GLUCOSE (AUTOMATED) 2020-10-29 23:01:00 Skylar [facility] POCT GLUCOSE (AUTOMATED) 2020-10-29 18:28:00 Skylar [facility] POCT GLUCOSE (AUTOMATED) 2020-10-29 13:55:00 Skylar [facility] TROPONIN I 2020-10-29 10:47:00 Skylar [facility] COMP. METABOLIC PANEL 2020-10-29 10:47:00 Skylar [facility] ([id number]) Medical Branch CBC WITH DIFF 2020-10-29 10:47:00 [facility]IN 2020-10-29 10:47[facility] 2020-10-29 03:11:52 Paolo Ayala [facility] URINALYSIS 2020-10-29 01:24:00 Paolo Ayala Teresa [facility] TROPONIN I 2020-10-29 01:17:00 Paolo Ayala Teresa [facility] COMP. METABOLIC PANEL 2020-10-29 01:17:00 Paolo Ayala [facility] ([id number]) Medical Branch CBC WITH DIFF 2020-10-29 01:17:00 Paolo Ayala [facility] D-DIMER 2020-10-29 01:17:00 Paolo Ayala Teresa [facility] N-TERMINAL PRO-BNP 2020-10-29 01:17:00 Paolo Ayala [facility] Medical Branch COVID-19 (ID NOW RAPID 2020-10-29 01:17:00 Paolo Ayala [facility] TESTING) Medical Branch LAB ONLY COVID 2020-10-29 01:17:00 Paolo Ayala [facility] INTERPRETATION [facility] HB ECG ROUTINE & RHYTHM 2020-10-29 00:51:47 Paolo Ayala [facility] Medical Branch NOTICE OF PRIVACY 2020-10-29 00:35:53 Doctor Everardo, [facility] PRACTICES [facility] CONSENT/REFUSAL FOR 2020-10-29 00:34:40 Doctor Everardo, [facility] DIAGNOSIS AND TREATMENT [facility] MEDICAL RELEASE/CLEARANCE 2020-07-25 06:01:00 Doctor Everardo, [facility] FORMS [facility] COMP. METABOLIC PANEL 2019-09-29 13:52:00 Tarun Arriaza [facility] ([id number]) [facility] LIPID PANEL ([id number])(TOTAL 2019-09-29 13:52:00 Tarun Arriaza [facility], HDL) CBC WITH DIFFERENTIAL 2019-09-29 13:52:[address] [facility] ASSIGNMENT OF BENEFITS 2019-09-28 15:29:27 Doctor Unamargarita, [facility] POCT HEMOGLOBIN A1C TEST 2019-09-28 00:00:00 [facility] Planned Activity Planned Date Details Comments Source Future Scheduled 2021-07-16 COVID-19 VACCINE (1) Met [facility] Test 08:32:11 [code = COVID-19 VACCINE (1)] Future Scheduled 2021-07-16 COLONOSCOPY SCREENING [facility] Test 08:32:11 [code = COLONOSCOPY SCREENING] Future Scheduled 2021-07-16 SHINGLES VACCINES [facility] Test 08:32:11 (#1) [code = SHINGLES VACCINES (#1)] Future Scheduled 2021-07-16 INFLUENZA VACCINE [facility] Test 08:32:11 [code = INFLUENZA VACCINE] Encounters Start End Encounter Admission Attending Care Care Encounter Source Date/Time Date/Time Type Type Clinicians Facility Department ID 2021-07-06 Emergency [facility] [id number] Univers 00:37:42 ity [facility] 2021-02-28 2021-02-28 Outpatient R TARAN JACKSON [facility] [id number] Univers 09:00:00 09:00:00 TARAN JACKSON [id number] i ty [facility] 2020-12-18 2020-12-18 Outpatient R [facility] [id number] Univers 14:00:00 14:00:00 [id number] ity [facility] 2020-12-18 2020-12-18 Outpatient R TONIO [facility] [id number] Univers 14:00:00 14:00:00 MAMADOU [facility] 2020-12-11 2020-12-11 Orders Doctor JESSICA [id number] Univers 00:00:00 00:00:00 Only Unassigned, ARTI [id number] ity [facility] [id number] Michael as [phone] [address] 2020-12-10 2020-12-10 Office [facility] [id number] Univers 13:39:31 14:09:31 Visit [facility] [id number] it y of [place] [id number] Michael as Professio [phone] [facility] 044 [facility] 2020-12-10 2020-12-10 [facility] [id number] Univers 14:00:00 14:00:00 TARUN [id number] [facility] 2020-12-10 2020-12-10 [facility] [id number] Univers 14:00:00 14:00:00 [facility] 2020-12-06 2020-12-06 Telephone [facility] [id number] Univers 00:00:00 00:00:00 [place] [id number] it y of [place] [id number] Michael as Professio [phone] [address] 2020-11-28 2020-11-28 [facility] [id number] Univers 13:58:07 14:42:11 Visit [place] [id number] i ty [place] [id number] [place] [phone] [place] [facility] [facility] 2020-11-28 2020-11-28 Outpatient R TARAN JACKSON [facility] [id number] Univers 13:40:00 13:40:00 TARAN JACKSON i ty of [facility] 2020-11-26 2020-11-26 Office [facility] [id number] Univers 10:23:25 10:45:46 Visit [facility] 350.1.13.10 it y of [place] 4.2.7.2.686 Michael as Professio [phone] [place] [address] 2020-11-26 2020-11-26 Outpatient Lily [facility]RIAZA [facility] [id number] Univers 10:15:00 10:15:00 TARUN itvania of [facility] 2020-11-26 2020-11-26 Patient Brayan [facility] 1.2.840.114 [id number] Univers 00:00:00 00:00:00 Outreach Mayur GILMAN 350.1.13.10 i ty of Tyrese [facility] [place].2.[place] [phone] [place] [address] 2020-11-14 2020-11-14 Transition Delicia Clay 1.2.840.114 [id number] Univers 00:00:00 00:00:00 of Care Josey Balbuena 350.1.13.10 it [place] of [place]2.[place] [phone] [facility] [address] 2020-10-28 2020-11-13 [facility] 1.2.840.1 [id number] Univers 18:43:00 18:23:00 Encounter TysitaBhargavi breauxvania Jody 350.1.13.10 ity of [place]7.2.[place] [phone] [facility] [address] 2020-11-05 2020-11-05 [facility] 1.2.840.114 [id number] Univers 00:00:00 00:00:00 [facility] 350.1.13.10 it y of [place] 4.2.7.2.686 [place] as Professio [phone] [place] dic[place] nal [address] Office [facility] [address] One 2020-10-01 2020-10-01 [facility] 1.2.840.114 [id number] Univers 00:00:00 00:00:00 [facility] 350.1.13.10 it y of [place] 4.2.7.2.686 [place] as Professio [phone] [place] [address] Office [facility] [address] One 2020-07-25 2020-07-25 Orders Doctor JESSICA 1.2.840.114 [id number] Univers 00:00:00 00:00:00 Only Unassigned, ARTI 350.1.13.10 ity of [facility] 4.2.7.2.686 Michael as [phone] [address] 2019-12-28 2019-12-28 Outpatient R SOFIYA [facility] [id number] Univers 08:15:00 08:15:00 TARUN ity of [facility] 2019-09-29 2019-09-29 Pressing Machine Operator Lab, Adc Fam Pob I [facility] 1.2. 840.114 [id number] Univers 07:48:46 08:03:17 Visit Tarun Arriaza cher [facility] 350.1.13 .10 ity of [place] 4.2.7.2.686 [place] as Professio [phone] [place] [address] Office Building One 2019-09-28 2019-09-28 Office Sofiya [facility] 1.2.840.114 [id number] Univers 09:30:26 11:11:17 Visit Tarun [facility] 350.1.13.10 it y of [place] 4.2.7.2.686 Michael as Professio [phone] [address] Office Building One 2019-09-28 2019-09-28 Orders Doctor JESSICA 1.2.840.114 [id number] Univers 00:00:00 00:00:00 Only Unassigned, ARTI 350.1.13.10 ity of [facility] 4.2.7.2.686 Michael as [phone] [address] 2016-10-19 2016-10-19 Outpatient Ana REED [facility] [id number] [place] 05:10:00 09:30:00 [facility] 2016-08-17 2016-08-17 [facility] [id number] [place] 05:14:00 08:30:00 [facility] Results Test Description Test Time Test Comments Results Result Comments Source POCT GLUCOSE (AUTOMATED) 2020-11-13 22:19:50 Test Item Value Reference Range Interpretation Comme nts POCT GLU (test code = 5921173668) 266 mg/dL 70-110 H Lab Interpretation (test code = 71515-7) [facility] (NA, K, CL, CO2, GLUCOSE, BUN, CREATININE, CA)2020-11-13 14:03:57 Test Item Value Reference Range Interpretation Comments NA (test code = 129 mmol/L 135-145 L 3702806601) K (test code = 5.1 mmol/L 3.5-5.0 H 9142135517) CL (test code = 98 mmol/L 98-108 7537556334) CO2 TOTAL (test code = 25 mmol/L 23-31 1545343753) AGAP (test code = 2-16 3397704590) BUN (test code = 21 mg/dL 7-23 5251954402) GLUCOSE (test code = 258 mg/dL 70-110 H 1906357669) CREATININE (test code = 0.55 mg/dL 0.60-1.25 L 3816353307) CALCIUM (test code = 8.1 mg/dL 8.6-10.6 L 1730699955) eGFR Calculation mL/min/1.73m2 (Non-) (test code = 4028496261) eGFR Calculation mL/min/1.73m2 () (test code = 3161907213) MAGDA (test code = MAGDA) Association of Glomerular Filtration Rate (GFR) and Staging of Kidney Disease* + --+ --+ ------+| GFR (mL/min/1.73 m2) ?| With Kidney Damage ?| ?Without Kidney Damage+ --------+ --------+ +| ?>90 ?| ?Stage one ?| ? Normal ?+ ---+ ---+ -------+| ?60-89 ?| ?Stage two ?| ? Decreased GFR ? + --+ --+ ------+| ?30-59 ?| ?Stage three ?| ? Stage three ? + --+ --+ ------+| ?15-29 ?| ?Stage four ? | ? Stage four ?+ ---+ ---+ -------+| ?<15 (or dialysis) ? ?| ?Stage five ? | ? Stage five ?+ ---+ ---+ -------+ *Each stage assumes the associated GFR level has been in effect for at least three months. ?Stages 1 to 5, with or without kidney disease, indicate chronic kidney disease. Notes: Determination of stages one and two (with eGFR >59mL/min/1.73 m2) requires estimation of kidney damage for at least three months as defined by structural or functional abnormalities of the kidney, manifested by either:Pathological abnormalities or Markers of kidney damage (including abnormalities in the composition of the blood or urine or abnormalities in imaging tests). Lab Interpretation Abnormal (test code = 92099-0) [facility] WITH [id number] 11:57:04 Test Item Value Reference Range Interpretation Comments WBC (test code = See_Comment L [Automated 6690-2) message] The sy stem which generated this result transmitted reference range : 4.20 - 10.70 10*3/?L. The reference range was not used to interpret this result as normal/abnormal . RBC (test code = See_Comment L [Automated 789-8) message] The sy stem which generated this result transmitted reference range : 4.26 - 5.52 10*6/?L. The reference range was not used to interpret this result as normal/abnormal . HGB (test code = 10.8 g/dL 12.2-16.4 L 718-7) HCT (test code = 33.4 % 38.4-49.3 L 4544-3) MCV (test code = 80.3 fL 81.7-95.6 L 787-2) MCH (test code = 26.0 pg 26.1-32.7 L 785-6) MCHC (test code = 32.3 g/dL 31.2-35.0 786-4) RDW-SD (test code = 39.9 fL 38.5-51.6 71459-1) RDW-CV (test code = 13.8 % 12.1-15.4 788-0) PLT (test code = See_Comment [Automated 777-3) message] The sy stem which generated this result transmitted reference range : 150 - 328 10*3/ ?L. The reference r jaime was not used to interpret this result as normal/abnormal . MPV (test code = 11.8 fL 9.8-13.0 36284-9) NRBC/100 WBC (test See_Comment [Automat ed code = 8517782920) message] The system which generated this result transmitted reference range : 0.0 - 10.0 /100 WBCs. The refer ence range was not u sed to interpret th is result as normal/abnormal . NRBC x10^3 (test code <0.01 See_Comment [Auto mated = 7448277109) message] The s ystem which generated this result transmitted reference range : 10*3/?L. The reference range was not used to interpret this result as normal/abnormal . GRAN MAT (NEUT) % 78.0 % (test code = 770-8) IMM GRAN % (test code 0.50 % = 8050079003) LYMPH % (test code = 13.6 % 736-9) MONO % (test code = 7.6 % 5905-5) EOS % (test code = 0.0 % 713-8) BASO % (test code = 0.3 % 706-2) GRAN MAT x10^3(ANC) 2.97 10*3/uL 1.99-6.95 (test code = 3501365061) IMM GRAN x10^3 (test <0.03 0.00-0.06 code = 2126883145) LYMPH x10^3 (test code 0.52 10*3/uL 1.09-3.23 L = 731-0) MONO x10^3 (test code 0.29 10*3/uL 0.36-1.02 L = 742-7) EOS x10^3 (test code = <0.03 0.06-0.53 L 711-2) BASO x10^3 (test code <0.03 0.01-0.09 = 704-7) Lab Interpretation Abnormal (test code = 23756-5) [facility] GLUCOSE (AUTOMATED)2020-11-13 03:29:07 Test Item Value Reference Range Interpretation Comments POCT GLU (test code = 6639394860) 231 mg/dL 70-110 H Lab Interpretation (test code = Abnormal 14181-2) [facility] GLUCOSE (AUTOMATED)2020-11-12 22:33:59 Test Item Value Reference Range Interpretation Comments POCT GLU (test code = 8148149521) 221 mg/dL 70-110 H Lab Interpretation (test code = Abnormal 70332-9) [facility] GLUCOSE (AUTOMATED)2020-11-12 18:14:33 Test Item Value Reference Range Interpretation Comments POCT GLU (test code = 8733101817) 286 mg/dL 70-110 H Lab Interpretation (test code = Abnormal 43800-4) [facility] GLUCOSE (AUTOMATED)2020-11-12 13:32:08 Test Item Value Reference Range Interpretation Comments POCT GLU (test code = 4428563559) 408 mg/dL 70-110 H Lab Interpretation (test code = Abnormal 79185-4) [facility] GLUCOSE (AUTOMATED)2020-11-12 11:59:34 Test Item Value Reference Range Interpretation Comments POCT GLU (test code = 8305124742) 262 mg/dL 70-110 H Lab Interpretation (test code = Abnormal 17952-4) [facility] GLUCOSE (AUTOMATED)2020-11-12 11:59:33 Test Item Value Reference Range Interpretation Comments POCT GLU (test code = 4946893471) 257 mg/dL 70-110 H Lab Interpretation (test code = Abnormal 33924-5) [facility] GLUCOSE (AUTOMATED)2020-11-11 23:15:20 Test Item Value Reference Range Interpretation Comments POCT GLU (test code = 2742421622) 199 mg/dL 70-110 H Lab Interpretation (test code = Abnormal 41656-8) [facility] GLUCOSE (AUTOMATED)2020-11-11 14:12:18 Test Item Value Reference Range Interpretation Comments POCT GLU (test code = 9453072387) 206 mg/dL 70-110 H Lab Interpretation (test code = Abnormal 06012-0) [facility] GLUCOSE (AUTOMATED)2020-11-11 14:02:30 Test Item Value Reference Range Interpretation Comments POCT GLU (test code = 1273850286) 309 mg/dL 70-110 H Lab Interpretation (test code = Abnormal 95055-7) [facility] METABOLIC PANEL (NA, K, CL, CO2, GLUCOSE, BUN, CREATININE, CA)2020-11-11 12:07:11 Test Item Value Reference Range Interpretation Comments NA (test code = 129 mmol/L 135-145 L 7850474417) K (test code = 4.5 mmol/L 3.5-5.0 2180846227) CL (test code = 98 mmol/L 98-108 6202732242) CO2 TOTAL (test code = 25 mmol/L 23-31 0449855906) AGAP (test code = 2-16 1952824761) BUN (test code = 19 mg/dL 7-23 6431928801) GLUCOSE (test code = 275 mg/dL 70-110 H 7266125560) CREATININE (test code = 0.74 mg/dL 0.60-1.25 2743770002) CALCIUM (test code = 8.3 mg/dL 8.6-10.6 L 2514904888) eGFR Calculation mL/min/1.73m2 (Non-) (test code = 4821292082) eGFR Calculation mL/min/1.73m2 () (test code = 7682768508) MAGDA (test code = MAGDA) Association of Glomerular Filtration Rate (GFR) and Staging of Kidney Disease* + --+ --+ ------+| GFR (mL/min/1.73 m2) ?| With Kidney Damage ?| ?Without Kidney Damage+ --------+ --------+ +| ?>90 ?| ?Stage one ?| ? Normal ?+ ---+ ---+ -------+| ?60-89 ?| ?Stage two ?| ? Decreased GFR ? + --+ --+ ------+| ?30-59 ?| ?Stage three ?| ? Stage three ? + --+ --+ ------+| ?15-29 ?| ?Stage four ? | ? Stage four ?+ ---+ ---+ -------+| ?<15 (or dialysis) ? ?| ?Stage five ? | ? Stage five ?+ ---+ ---+ -------+ *Each stage assumes the associated GFR level has been in effect for at least three months. ?Stages 1 to 5, with or without kidney disease, indicate chronic kidney disease. Notes: Determination of stages one and two (with eGFR >59mL/min/1.73 m2) requires estimation of kidney damage for at least three months as defined by structural or functional abnormalities of the kidney, manifested by either:Pathological abnormalities or Markers of kidney damage (including abnormalities in the composition of the blood or urine or abnormalities in imaging tests). Lab Interpretation Abnormal (test code = 88385-1) [facility] WITH [id number] 11:54:53 Test Item Value Reference Range Interpretation Comments WBC (test code = See_Comment [Automated 6690-2) message] The sy stem which generated this result transmitted reference range : 4.20 - 10.70 10*3/?L. The reference range was not used to interpret this result as normal/abnormal . RBC (test code = See_Comment L [Automated 789-8) message] The sy stem which generated this result transmitted reference range : 4.26 - 5.52 10*6/?L. The reference range was not used to interpret this result as normal/abnormal . HGB (test code = 11.2 g/dL 12.2-16.4 L 718-7) HCT (test code = 33.0 % 38.4-49.3 L 4544-3) MCV (test code = 78.0 fL 81.7-95.6 L 787-2) MCH (test code = 26.5 pg 26.1-32.7 785-6) MCHC (test code = 33.9 g/dL 31.2-35.0 786-4) RDW-SD (test code = 38.5 fL 38.5-51.6 09672-1) RDW-CV (test code = 13.7 % 12.1-15.4 788-0) PLT (test code = See_Comment [Automated 777-3) message] The sy stem which generated this result transmitted reference range : 150 - 328 10*3/ ?L. The reference r jaime was not used to interpret this result as normal/abnormal . MPV (test code = 10.1 fL 9.8-13.0 48445-5) NRBC/100 WBC (test See_Comment [Automat ed code = 1993109107) message] The system which generated this result transmitted reference range : 0.0 - 10.0 /100 WBCs. The refer ence range was not u sed to interpret th is result as normal/abnormal . NRBC x10^3 (test code <0.01 See_Comment [Auto mated = 8252430403) message] The s ystem which generated this result transmitted reference range : 10*3/?L. The reference range was not used to interpret this result as normal/abnormal . GRAN MAT (NEUT) % 79.1 % (test code = 770-8) IMM GRAN % (test code 0.50 % = 7916853445) LYMPH % (test code = 10.4 % 736-9) MONO % (test code = 9.7 % 5905-5) EOS % (test code = 0.3 % 713-8) BASO % (test code = 0.0 % 706-2) GRAN MAT x10^3(ANC) 4.54 10*3/uL 1.99-6.95 (test code = 3545471615) IMM GRAN x10^3 (test 0.03 10*3/uL 0.00-0.06 code = 4451995567) LYMPH x10^3 (test code 0.60 10*3/uL 1.09-3.23 L = 731-0) MONO x10^3 (test code 0.56 10*3/uL 0.36-1.02 = 742-7) EOS x10^3 (test code = <0.03 0.06-0.53 L 711-2) BASO x10^3 (test code <0.03 0.01-0.09 = 704-7) Lab Interpretation Abnormal (test code = 08930-5) [facility] GLUCOSE (AUTOMATED)2020-11-11 01:27:24 Test Item Value Reference Range Interpretation Comments POCT GLU (test code = 9516920372) 188 mg/dL 70-110 H Lab Interpretation (test code = Abnormal 00406-9) [facility] GLUCOSE (AUTOMATED)2020-11-10 14:22:49 Test Item Value Reference Range Interpretation Comments POCT GLU (test code = 2945743728) 425 mg/dL 70-110 H Lab Interpretation (test code = Abnormal 90696-0) [facility] GLUCOSE (AUTOMATED)2020-11-10 02:20:00 Test Item Value Reference Range Interpretation Comments POCT GLU (test code = 370 mg/dL 70-110 H Notifi ed Provider 7133786233) Lab Interpretation (test Abnormal code = 88980-1) [facility] GLUCOSE (AUTOMATED)2020-11-09 22:44:00 Test Item Value Reference Range Interpretation Comments POCT GLU (test code = 4633924691) 254 mg/dL 70-110 H Lab Interpretation (test code = Abnormal 37778-1) [facility] GLUCOSE (AUTOMATED)2020-11-09 22:25:00 Test Item Value Reference Range Interpretation Comments POCT GLU (test code = 7271426824) 280 mg/dL 70-110 H Lab Interpretation (test code = Abnormal 47662-7) [facility] GLUCOSE (AUTOMATED)2020-11-09 15:02:00 Test Item Value Reference Range Interpretation Comments POCT GLU (test code = 8658968252) 273 mg/dL 70-110 H Lab Interpretation (test code = Abnormal 87553-2) [facility] METABOLIC PANEL (NA, K, CL, CO2, GLUCOSE, BUN, CREATININE, CA)2020-11-09 12:25:00 Test Item Value Reference Range Interpretation Comments NA (test code = 131 mmol/L 135-145 L 3991085342) K (test code = 4.3 mmol/L 3.5-5.0 5814594418) CL (test code = 100 mmol/L 98-108 7260683088) CO2 TOTAL (test code = 24 mmol/L 23-31 3106190607) AGAP (test code = 2-16 3958851507) BUN (test code = 23 mg/dL 7-23 2272493248) GLUCOSE (test code = 190 mg/dL 70-110 H 5436821729) CREATININE (test code = 0.86 mg/dL 0.60-1.25 4844803339) CALCIUM (test code = 8.1 mg/dL 8.6-10.6 L 6697105585) eGFR Calculation mL/min/1.73m2 (Non-) (test code = 5944433949) eGFR Calculation mL/min/1.73m2 () (test code = 2393479913) MAGDA (test code = MAGDA) Association of Glomerular Filtration Rate (GFR) and Staging of Kidney Disease* + --+ --+ ------+| GFR (mL/min/1.73 m2) ?| With Kidney Damage ?| ?Without Kidney Damage+ --------+ --------+ +| ?>90 ?| ?Stage one ?| ? Normal ?+ ---+ ---+ -------+| ?60-89 ?| ?Stage two ?| ? Decreased GFR ? + --+ --+ ------+| ?30-59 ?| ?Stage three ?| ? Stage three ? + --+ --+ ------+| ?15-29 ?| ?Stage four ? | ? Stage four ?+ ---+ ---+ -------+| ?<15 (or dialysis) ? ?| ?Stage five ? | ? Stage five ?+ ---+ ---+ -------+ *Each stage assumes the associated GFR level has been in effect for at least three months. ?Stages 1 to 5, with or without kidney disease, indicate chronic kidney disease. Notes: Determination of stages one and two (with eGFR >59mL/min/1.73 m2) requires estimation of kidney damage for at least three months as defined by structural or functional abnormalities of the kidney, manifested by either:Pathological abnormalities or Markers of kidney damage (including abnormalities in the composition of the blood or urine or abnormalities in imaging tests). Lab Interpretation Abnormal (test code = 17686-4) [facility] WITH [id number] 12:14:00 Test Item Value Reference Range Interpretation Comments WBC (test code = See_Comment [Automated 5190-2) message] The sy stem which generated this result transmitted reference range : 4.20 - 10.70 10*3/?L. The reference range was not used to interpret this result as normal/abnormal . RBC (test code = See_Comment [Automated 709-8) message] The sy stem which generated this result transmitted reference range : 4.26 - 5.52 10*6/?L. The reference range was not used to interpret this result as normal/abnormal . HGB (test code = 11.3 g/dL 12.2-16.4 L 718-7) HCT (test code = 33.9 % 38.4-49.3 L 4544-3) MCV (test code = 79.0 fL 81.7-95.6 L 787-2) MCH (test code = 26.3 pg 26.1-32.7 785-6) MCHC (test code = 33.3 g/dL 31.2-35.0 786-4) RDW-SD (test code = 38.6 fL 38.5-51.6 71370-8) RDW-CV (test code = 13.6 % 12.1-15.4 788-0) PLT (test code = See_Comment [Automated 777-3) message] The sy stem which generated this result transmitted reference range : 150 - 328 10*3/ ?L. The reference r jaime was not used to interpret this result as normal/abnormal . MPV (test code = 10.9 fL 9.8-13.0 63714-7) NRBC/100 WBC (test See_Comment [Automat ed code = 3307084738) message] The system which generated this result transmitted reference range : 0.0 - 10.0 /100 WBCs. The refer ence range was not u sed to interpret th is result as normal/abnormal . NRBC x10^3 (test code <0.01 See_Comment [Auto mated = 9053461615) message] The s ystem which generated this result transmitted reference range : 10*3/?L. The reference range was not used to interpret this result as normal/abnormal . GRAN MAT (NEUT) % 67.2 % (test code = 770-8) IMM GRAN % (test code 1.10 % = 0712092491) LYMPH % (test code = 17.9 % 736-9) MONO % (test code = 12.8 % 5905-5) EOS % (test code = 0.8 % 713-8) BASO % (test code = 0.2 % 706-2) GRAN MAT x10^3(ANC) 3.19 10*3/uL 1.99-6.95 (test code = 7345652294) IMM GRAN x10^3 (test 0.05 10*3/uL 0.00-0.06 code = 0876768149) LYMPH x10^3 (test code 0.85 10*3/uL 1.09-3.23 L = 731-0) MONO x10^3 (test code 0.61 10*3/uL 0.36-1.02 = 742-7) EOS x10^3 (test code = 0.04 10*3/uL 0.06-0.53 L 711-2) BASO x10^3 (test code <0.03 0.01-0.09 = 704-7) Lab Interpretation Abnormal (test code = 40609-3) [facility] GLUCOSE (AUTOMATED)2020-11-09 02:20:00 Test Item Value Reference Range Interpretation Comments POCT GLU (test code = 6127488416) 259 mg/dL 70-110 H Lab Interpretation (test code = Abnormal 27518-6) [facility] GLUCOSE (AUTOMATED)2020-11-08 22:34:00 Test Item Value Reference Range Interpretation Comments POCT GLU (test code = 4422264545) 300 mg/dL 70-110 H Lab Interpretation (test code = Abnormal 66722-3) [facility] GLUCOSE (AUTOMATED)2020-11-08 18:40:00 Test Item Value Reference Range Interpretation Comments POCT GLU (test code = 4957581659) 316 mg/dL 70-110 H Lab Interpretation (test code = Abnormal 24894-1) [facility] GLUCOSE (AUTOMATED)2020-11-08 17:40:00 Test Item Value Reference Range Interpretation Comments POCT GLU (test code = 6118363057) 287 mg/dL 70-110 H Lab Interpretation (test code = Abnormal 44146-5) [facility] 15:31:00 Test Item Value Reference Range Interpretation Comments HGB A1C (test code = 9.3 % 4.0-6.0 H 4548-4) MAGDA (test code = MAGDA) %A1C (NGSP) Interpretation (ADA)4.8-5.6 ? ? Normal or (Non-Diabetic Range)5.7-6.4 ? ? Increased Risk (Pre-Diabetic)>6.5 ?Diabetes Indicated Lab Interpretation Abnormal (test code = 82010-9) [facility] GLUCOSE (AUTOMATED)2020-11-08 14:28:00 Test Item Value Reference Range Interpretation Comments POCT GLU (test code = 4886924199) 205 mg/dL 70-110 H Lab Interpretation (test code = Abnormal 63063-3) [facility] GLUCOSE (AUTOMATED)2020-11-08 02:23:00 Test Item Value Reference Range Interpretation Comments POCT GLU (test code = 8559234186) 357 mg/dL 70-110 H Lab Interpretation (test code = Abnormal 69625-1) [facility] 18:30:00 Test Item Value Reference Range Interpretation Comments POCT GLU (test code = 8334667065) 354 mg/dL 70-110 H Lab Interpretation (test code = Abnormal 92571-7) [facility] 17:37:00 Test Item Value Reference Range Interpretation Comments Procalcitonin (test 0.04 ng/mL <0.07 code = 9850073493) MAGDA (test code = MAGDA) INTERPRETATION OF PROCALCITONIN RESULTS IN ADULTS >= 18 YEARS OF AGE Initiation and discontinuation of antibiotics on patients with suspected or confirmed Lower Respiratory Tract Infection in Adults >= 18 years of age. + +-------- --------+ + -----+|Procalcitonin |Interpretation ?|Antibiotic ? ? |Considerations ? |ng/mL ? | ?|recommendation | ? + +-------- --------+ + -----+| <0.1 ? | Bacterial ? ? ?| Strongly ? ? ?| ? | ?| infection very | discouraged ? | Overruling: ? | ?| unlikely ? ? ? | ? | ? Clinically unstable ? ? ? + +-------- --------+ + ? High risk for adverse ? ? | <0.25 ?| Bacterial ? ? ?| Discouraged ? | ? outcome ? | ?| infection ? ? ?| ? | ? SEE IMPORTANT NOTE ?| ?| unlikely ? ? ? | ? | ? + +-------- --------+ + -----+| >=0.25 ? ? ? | Bacterial ? ? ?| Encouraged ? ?| ? | ?| infection ? ? ?| ? | ? | ?| likely ? | ? | Consider treatment failure ?+ +------- ---------+ -+ if levels does not decrease | >0.5 ? | Bacterial ? ? ?| Strongly ? ? ?| appropriately ? | ?| infection very | encouraged ? ?| ? | ?| likely ? | ? | ? + +-------- --------+ + -----+ Discontinuation of antibiotics in high-acuity patients with suspected or confirmed sepsis in Adults >= 18 years of age. + +-------- --------+ + -----+|Procalcitonin |Interpretation ?|Antibiotic ? ? |Considerations ? |ng/mL ? | ?|recommendation | ? + +-------- --------+ + -----+| <0.25 ?| Bacterial ? ? ?| Strongly ? ? ?| ? | ?| infection very | discouraged ? | Overruling: ? | ?| unlikely ? ? ? | ? | ? Clinically unstable ? ? ? + +-------- --------+ + ? High risk for adverse ? ? | <0.5 or drop | Bacterial ? ? ?| Discouraged ? | ? outcome ? | >80% from ? ?| infection ? ? ?| ? | ? SEE IMPORTANT NOTE ?| highest PCT ?| unlikely ? ? ? | ? | ? | level ?| ?| ? | ? + +-------- --------+ + -----+| >=0.5 ?| Bacterial ? ? ?| Encouraged ? ?| ? | ?| infection ? ? ?| ? | ? | ?| likely ? | ? | Consider treatment failure ?+ +------- ---------+ -+ if levels does not decrease | >1.0 ? | Bacterial ? ? ?| Strongly ? ? ?| appropriately ? | ?| infection very | encouraged ? ?| ? | ?| likely ? | ? | ? + +-------- --------+ + -----+ Percentage of drop of Procalcitonin calculation for Discontinuation of antibiotics in high-acuity patients with suspected or confirmed sepsis in Adults >= 18 years of age. ? Procalcitonin highest{}-Procalcitonin current{}Delta Procalcitonin = x100% ? Procalcitonin current {} IMPORTANT NOTE: Procalcitonin may be elevated without bacterial infection by physiologic stress related to trauma, house, chronic dialysis, metastatic cancer, surgery in the past seven days, malaria, some fungal infections, and some forms of vasculitis. The interpretation algorithm may not apply to patients with immunosuppression (equivalent of >10 mg of prednisone daily), HIV with CD4 cell count < 350 cells/mm3, active malignancy on systemic chemotherapy, solid organ transplant or hematopoietic stem cell transplantation, or hospital acquired pneumonia. Additionally, some clinical trials of procalcitonin have excluded patients with shock requiring vasopressor use, acute respiratory failure requiring mechanical ventilation, or those with known lung abscess/empyema. For further information please refer to:[email or web address] Lab Interpretation Normal (test code = 39261-0) [facility] 14[facility]58:00 Test Item Value Reference Range Interpretation Comments POCT GLU (test code = 7825799937) 235 mg/dL 70-110 H Lab Interpretation (test code = Abnormal 02175-9) [facility][id number][facility]2020-11-07 13:00:00 Test Item Value Reference Range Interpretation Comments NA (test code = 131 mmol/L 135-145 L 3356898884) K (test code = 4.1 mmol/L 3.5-5.0 0181937268) CL (test code = 102 mmol/L 98-108 4109536611) CO2 TOTAL (test code = 21 mmol/L 23-31 L 1062330239) AGAP (test code = 2-16 0456590325) BUN (test code = 22 mg/dL 7-23 6638535736) GLUCOSE (test code = 204 mg/dL 70-110 H 8750851284) CREATININE (test code = 0.68 mg/dL 0.60-1.25 8218971124) TOTAL BILI (test code = 0.7 mg/dL 0.1-1.4 2720897983) CALCIUM (test code = 8.3 mg/dL 8.6-10.6 L 8770330187) T PROTEIN (test code = 6.3 g/dL 6.3-8.2 9463950367) ALBUMIN (test code = 3.0 g/dL 3.5-5.0 L 2562048948) ALK PHOS (test code = 84 U/L 34-122 1463660140) ALTv (test code = 21 U/L 5-50 1742-6) AST(SGOT) (test code = 25 U/L 13-40 5883358563) eGFR Calculation mL/min/1.73m2 (Non-) (test code = 9352799127) eGFR Calculation mL/min/1.73m2 () (test code = 0288558688) MAGDA (test code = MAGDA) Association of Glomerular Filtration Rate (GFR) and Staging of Kidney Disease* + --+ --+ ------+| GFR (mL/min/1.73 m2) ?| With Kidney Damage ?| ?Without Kidney Damage+ --------+ --------+ +| ?>90 ?| ?Stage one ?| ? Normal ?+ ---+ ---+ -------+| ?60-89 ?| ?Stage two ?| ? Decreased GFR ? + --+ --+ ------+| ?30-59 ?| ?Stage three ?| ? Stage three ? + --+ --+ ------+| ?15-29 ?| ?Stage four ? | ? Stage four ?+ ---+ ---+ -------+| ?<15 (or dialysis) ? ?| ?Stage five ? | ? Stage five ?+ ---+ ---+ -------+ *Each stage assumes the associated GFR level has been in effect for at least three months. ?Stages 1 to 5, with or without kidney disease, indicate chronic kidney disease. Notes: Determination of stages one and two (with eGFR >59mL/min/1.73 m2) requires estimation of kidney damage for at least three months as defined by structural or functional abnormalities of the kidney, manifested by either:Pathological abnormalities or Markers of kidney damage (including abnormalities in the composition of the blood or urine or abnormalities in imaging tests). Lab Interpretation Abnormal (test code = 44408-6) [facility] WITH [id number] 11:44:00 Test Item Value Reference Range Interpretation Comments WBC (test code = See_Comment [Automated 6690-2) message] The sy stem which generated this result transmitted reference range : 4.20 - 10.70 10*3/?L. The reference range was not used to interpret this result as normal/abnormal . RBC (test code = See_Comment L [Automated 789-8) message] The sy stem which generated this result transmitted reference range : 4.26 - 5.52 10*6/?L. The reference range was not used to interpret this result as normal/abnormal . HGB (test code = 11.1 g/dL 12.2-16.4 L 718-7) HCT (test code = 33.2 % 38.4-49.3 L 4544-3) MCV (test code = 78.7 fL 81.7-95.6 L 787-2) MCH (test code = 26.3 pg 26.1-32.7 785-6) MCHC (test code = 33.4 g/dL 31.2-35.0 786-4) RDW-SD (test code = 38.5 fL 38.5-51.6 75541-8) RDW-CV (test code = 13.4 % 12.1-15.4 788-0) PLT (test code = See_Comment [Automated 777-3) message] The sy stem which generated this result transmitted reference range : 150 - 328 10*3/ ?L. The reference r jaime was not used to interpret this result as normal/abnormal . MPV (test code = 10.8 fL 9.8-13.0 62515-8) NRBC/100 WBC (test See_Comment [Automat ed code = 8492365608) message] The system which generated this result transmitted reference range : 0.0 - 10.0 /100 WBCs. The refer ence range was not u sed to interpret th is result as normal/abnormal . NRBC x10^3 (test code <0.01 See_Comment [Auto mated = 1097599949) message] The s ystem which generated this result transmitted reference range : 10*3/?L. The reference range was not used to interpret this result as normal/abnormal . GRAN MAT (NEUT) % 68.9 % (test code = 770-8) IMM GRAN % (test code 0.90 % = 9997261588) LYMPH % (test code = 14.9 % 736-9) MONO % (test code = 14.4 % 5905-5) EOS % (test code = 0.9 % 713-8) BASO % (test code = 0.0 % 706-2) GRAN MAT x10^3(ANC) 3.15 10*3/uL 1.99-6.95 (test code = 0840904002) IMM GRAN x10^3 (test 0.04 10*3/uL 0.00-0.06 code = 3936556014) LYMPH x10^3 (test code 0.68 10*3/uL 1.09-3.23 L = 731-0) MONO x10^3 (test code 0.66 10*3/uL 0.36-1.02 = 742-7) EOS x10^3 (test code = 0.04 10*3/uL 0.06-0.53 L 711-2) BASO x10^3 (test code <0.03 0.01-0.09 = 704-7) Lab Interpretation Abnormal (test code = 53290-0) [facility] GLUCOSE (AUTOMATED)2020-11-07 06:31:00 Test Item Value Reference Range Interpretation Comments POCT GLU (test code = 8336502192) 288 mg/dL 70-110 H Lab Interpretation (test code = Abnormal 75567-5) [facility] GLUCOSE (AUTOMATED)2020-11-07 02:13:00 Test Item Value Reference Range Interpretation Comments POCT GLU (test code = 2189447409) 475 mg/dL 70-110 HH Lab Interpretation (test code = Abnormal 94114-9) [facility] GLUCOSE (AUTOMATED)2020-11-06 22:08:00 Test Item Value Reference Range Interpretation Comments POCT GLU (test code = 7660321054) 342 mg/dL 70-110 H Lab Interpretation (test code = Abnormal 31707-8) [facility] GLUCOSE (AUTOMATED)2020-11-06 18:15:00 Test Item Value Reference Range Interpretation Comments POCT GLU (test code = 268 mg/dL 70-110 H Notifi ed Provider [id number]) Lab Interpretation (test Abnormal code = 54825-3) [facility] GLUCOSE (AUTOMATED)2020-11-06 17:49:00 Test Item Value Reference Range Interpretation Comments POCT GLU (test code = 126 mg/dL 70-110 H Notifi ed Provider [id number]) Lab Interpretation (test Abnormal code = 01972-8) [facility] GLUCOSE (AUTOMATED)2020-11-06 06:23:00 Test Item Value Reference Range Interpretation Comments POCT GLU (test code = 335 mg/dL 70-110 H Notifi ed Provider [id number]) Lab Interpretation (test Abnormal code = 04703-3) [facility] GLUCOSE (AUTOMATED)2020-11-06 02:03:00 Test Item Value Reference Range Interpretation Comments POCT GLU (test code = 393 mg/dL 70-110 H Notifi ed Provider [id number]) Lab Interpretation (test Abnormal code = 87075-6) [facility] GLUCOSE (AUTOMATED)2020-11-05 22:42:00 Test Item Value Reference Range Interpretation Comments POCT GLU (test code = 9916247320) 297 mg/dL 70-110 H Lab Interpretation (test code = Abnormal 23702-6) [facility] GLUCOSE (AUTOMATED)2020-11-05 17:24:00 Test Item Value Reference Range Interpretation Comments POCT GLU (test code = 2186994408) 204 mg/dL 70-110 H Lab Interpretation (test code = Abnormal 42606-8) [facility]:24:00 Test Item Value Reference Range Interpretation Comments POCT GLU (test code = 2884076882) 223 mg/dL 70-110 H Lab Interpretation (test code = Abnormal 91920-6) [facility] GLUCOSE (AUTOMATED)2020-11-05 12:46:00 Test Item Value Reference Range Interpretation Comments POCT GLU (test code = 0469324555) 344 mg/dL 70-110 H Lab Interpretation (test code = Abnormal 98871-9) [facility] GLUCOSE (AUTOMATED)2020-11-05 12:23:00 Test Item Value Reference Range Interpretation Comments POCT GLU (test code = 4245877206) 218 mg/dL 70-110 H Lab Interpretation (test code = Abnormal 50660-9) [facility] GLUCOSE (AUTOMATED)2020-11-05 05:28:00 Test Item Value Reference Range Interpretation Comments POCT GLU (test code = 304 mg/dL 70-110 H Notifi ed Provider [id number]) Lab Interpretation (test Abnormal code = 72119-1) [facility] GLUCOSE (AUTOMATED)2020-11-04 19:04:00 Test Item Value Reference Range Interpretation Comments POCT GLU (test code = 0174280884) 214 mg/dL 70-110 H Lab Interpretation (test code = Abnormal 58755-3) [facility] GLUCOSE (AUTOMATED)2020-11-04 19:04:00 Test Item Value Reference Range Interpretation Comments POCT GLU (test code = 3041625533) 325 mg/dL 70-110 H Lab Interpretation (test code = Abnormal 02250-7) [facility] [id number] 18:41:00 LEUKOPENIA WITH ABSOLUTE NEUTROPENIA, ABSOLUTE LYMPHOPENIA AND ABSOLUTE MONOCYTOPENIA WITH RARE PLASMACYTOID LYMPHOCYTES. EXCLUDE VIRAL ILLNESS AND AUTOIMMUNE DISORDER. 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 FINDINGS SUGGESTIVE OF IRON DEFICIENCY; CONCURRENT HEMOGLOBINOPATHY CANNOT BE COMPLETELY EXCLUDED. SUGGEST HEMOGLOBIN ELECTROPHORESIS. THROMBOCYTOPENIA WITH OCCASIONAL LARGE AND GIANT FORMS.[facility] GLUCOSE (AUTOMATED) 2020-11-04 14:46:00 Test Item Value Reference Range Interpretation Comments POCT GLU (test code = 8418771612) 283 mg/dL 70-110 H Lab Interpretation (test code = Abnormal 27528-7) [facility] GLUCOSE (AUTOMATED)2020-11-04 02:10:00 Test Item Value Reference Range Interpretation Comments POCT GLU (test code = 2151404380) 264 mg/dL 70-110 H Lab Interpretation (test code = Abnormal 80798-2) [facility] GLUCOSE (AUTOMATED)2020-11-03 22:05:00 Test Item Value Reference Range Interpretation Comments POCT GLU (test code = 0827660946) 317 mg/dL 70-110 H Lab Interpretation (test code = Abnormal 58382-4) [facility] 14:32:00 Test Item Value Reference Range Interpretation Comments POCT GLU (test code = 8510318017) 231 mg/dL 70-110 H Lab Interpretation (test code = Abnormal 92672-4) [facility] WITH [id number] 12:36:00 Test Item Value Reference Range Interpretation Comments WBC (test code = See_Comment [Automated 6690-2) message] The sy stem which generated this result transmitted reference range : 4.20 - 10.70 10*3/?L. The reference range was not used to interpret this result as normal/abnormal . RBC (test code = See_Comment L [Automated 789-8) message] The sy stem which generated this result transmitted reference range : 4.26 - 5.52 10*6/?L. The reference range was not used to interpret this result as normal/abnormal . HGB (test code = 10.6 g/dL 12.2-16.4 L 718-7) HCT (test code = 31.8 % 38.4-49.3 L 4544-3) MCV (test code = 79.1 fL 81.7-95.6 L 787-2) MCH (test code = 26.4 pg 26.1-32.7 785-6) MCHC (test code = 33.3 g/dL 31.2-35.0 786-4) RDW-SD (test code = 37.3 fL 38.5-51.6 L 89626-9) RDW-CV (test code = 13.2 % 12.1-15.4 788-0) PLT (test code = See_Comment L [Automated 777-3) message] The sy stem which generated this result transmitted reference range : 150 - 328 10*3/ ?L. The reference r jaime was not used to interpret this result as normal/abnormal . MPV (test code = 11.7 fL 9.8-13.0 53635-4) IPF % (test code = 11.8 % 1.2-10.7 H Platelet count 8806895946) measured by fluorescence method. NRBC/100 WBC (test See_Comment [Automat ed code = 1418961986) message] The system which generated this result transmitted reference range : 0.0 - 10.0 /100 WBCs. The refer ence range was not u sed to interpret th is result as normal/abnormal . NRBC x10^3 (test code See_Comment [Auto mated = 0654368290) message] The s ystem which generated this result transmitted reference range : 10*3/?L. The reference range was not used to interpret this result as normal/abnormal . GRAN MAT (NEUT) % 79.4 % (test code = 770-8) IMM GRAN % (test code 0.70 % = 7648416633) LYMPH % (test code = 12.3 % 736-9) MONO % (test code = 7.4 % 5905-5) EOS % (test code = 0.1 % 713-8) BASO % (test code = 0.1 % 706-2) GRAN MAT x10^3(ANC) 5.37 10*3/uL 1.99-6.95 (test code = 1878116607) IMM GRAN x10^3 (test 0.05 10*3/uL 0.00-0.06 code = 1795579374) LYMPH x10^3 (test code 0.83 10*3/uL 1.09-3.23 L = 731-0) MONO x10^3 (test code 0.50 10*3/uL 0.36-1.02 = 742-7) EOS x10^3 (test code = <0.03 0.06-0.53 L 711-2) BASO x10^3 (test code <0.03 0.01-0.09 = 704-7) Lab Interpretation Abnormal (test code = 52683-6) [facility]76856[facility]2020-11-03 12:24:00 Test Item Value Reference Range Interpretation Comments NA (test code = 133 mmol/L 135-145 L 6113034910) K (test code = 4.8 mmol/L 3.5-5.0 1135339900) CL (test code = 102 mmol/L 98-108 9903368827) CO2 TOTAL (test code = 20 mmol/L 23-31 L 1270032408) AGAP (test code = 2-16 8213821353) BUN (test code = 26 mg/dL 7-23 H 0672633911) GLUCOSE (test code = 211 mg/dL 70-110 H 2196672875) CREATININE (test code = 0.61 mg/dL 0.60-1.25 3478348079) TOTAL BILI (test code = 0.8 mg/dL 0.1-1.7 8670794573) CALCIUM (test code = 8.5 mg/dL 8.6-10.6 L 6635420826) T PROTEIN (test code = 6.5 g/dL 6.3-8.2 1403615458) ALBUMIN (test code = 3.4 g/dL 3.5-5.0 L 5375020058) ALK PHOS (test code = 85 U/L 34-122 8701672142) ALTv (test code = 22 U/L 5-50 1742-6) AST(SGOT) (test code = 29 U/L 13-40 0521615785) eGFR Calculation mL/min/1.73m2 (Non-) (test code = 2078593930) eGFR Calculation mL/min/1.73m2 () (test code = 6360770042) MAGDA (test code = MAGDA) Association of Glomerular Filtration Rate (GFR) and Staging of Kidney Disease* + --+ --+ ------+| GFR (mL/min/1.73 m2) ?| With Kidney Damage ?| ?Without Kidney Damage+ --------+ --------+ +| ?>90 ?| ?Stage one ?| ? Normal ?+ ---+ ---+ -------+| ?60-89 ?| ?Stage two ?| ? Decreased GFR ? + --+ --+ ------+| ?30-59 ?| ?Stage three ?| ? Stage three ? + --+ --+ ------+| ?15-29 ?| ?Stage four ? | ? Stage four ?+ ---+ ---+ -------+| ?<15 (or dialysis) ? ?| ?Stage five ? | ? Stage five ?+ ---+ ---+ -------+ *Each stage assumes the associated GFR level has been in effect for at least three months. ?Stages 1 to 5, with or without kidney disease, indicate chronic kidney disease. Notes: Determination of stages one and two (with eGFR >59mL/min/1.73 m2) requires estimation of kidney damage for at least three months as defined by structural or functional abnormalities of the kidney, manifested by either:Pathological abnormalities or Markers of kidney damage (including abnormalities in the composition of the blood or urine or abnormalities in imaging tests). Lab Interpretation Abnormal (test code = 65063-2) [facility] GLUCOSE (AUTOMATED)2020-11-03 04:10:00 Test Item Value Reference Range Interpretation Comments POCT GLU (test code = 1974790018) 365 mg/dL 70-110 H Lab Interpretation (test code = Abnormal 43457-9) [facility] GLUCOSE (AUTOMATED)2020-11-02 21:46:00 Test Item Value Reference Range Interpretation Comments POCT GLU (test code = 9805748806) 369 mg/dL 70-110 H Lab Interpretation (test code = Abnormal 70471-1) [facility] GLUCOSE (AUTOMATED)2020-11-02 18:35:00 Test Item Value Reference Range Interpretation Comments POCT GLU (test code = 6236007995) 405 mg/dL 70-110 H Lab Interpretation (test code = Abnormal 58931-0) [facility] GLUCOSE (AUTOMATED)2020-11-02 14:58:00 Test Item Value Reference Range Interpretation Comments POCT GLU (test code = 4969962798) 215 mg/dL 70-110 H Lab Interpretation (test code = Abnormal 85053-2) [facility] GLUCOSE (AUTOMATED)2020-11-01 17:54:00 Test Item Value Reference Range Interpretation Comments POCT GLU (test code = 2428538806) 405 mg/dL 70-110 H Lab Interpretation (test code = Abnormal 99930-0) [facility] [id number] 16:50:00 Test Item Value Reference Range Interpretation Comments TSH (test code = See_Comment Biotin has been 7027556101) reported to cau se a negative bias, interpret resul ts relative to pat ient's use of biotin. [Automated mess age] The system whic h generated this result transmitted ref erence range: 0.45 - 4 .70 mIU/L. The refe rence range was not u sed to interpret this result as normal/abnor mal. Lab Interpretation (test Normal code = 65647-8) [facility] GLUCOSE (AUTOMATED)2020-11-01 14:57:00 Test Item Value Reference Range Interpretation Comments POCT GLU (test code = 7222681041) 270 mg/dL 70-110 H Lab Interpretation (test code = Abnormal 25075-1) [id number] 12:40:00 Test Item Value Reference Range Interpretation Comments NT-proBNP (test code 303 pg/mL See_Comment H [Autom ated = 2960485240) message] The system which generated this result transmitted reference range : <=125. The reference range was not used to interpret this result as normal/abnormal . MAGDA (test code = MAGDA) Biotin has been reported to cause a negative bias, interpret results relative to patient's use of biotin. Lab Interpretation Abnormal (test code = 18682-2) [facility] GLUCOSE (AUTOMATED)2020-11-01 10:31:00 Test Item Value Reference Range Interpretation Comments POCT GLU (test code = 2837109021) 240 mg/dL 70-110 H Lab Interpretation (test code = Abnormal 08715-7) [facility] GLUCOSE (AUTOMATED)2020-11-01 04:35:00 Test Item Value Reference Range Interpretation Comments POCT GLU (test code = 322 mg/dL 70-110 H Notifi ed Provider [id number]) Lab Interpretation (test Abnormal code = 61990-4) [facility] GLUCOSE (AUTOMATED)2020-11-01 02:26:00 Test Item Value Reference Range Interpretation Comments POCT GLU (test code = 328 mg/dL 70-110 H Notifi ed Provider [id number]) Lab Interpretation (test Abnormal code = 13887-5) [facility] GLUCOSE (AUTOMATED)2020-11-01 02:08:00 Test Item Value Reference Range Interpretation Comments POCT GLU (test code = 3036703419) 300 mg/dL 70-110 H Lab Interpretation (test code = Abnormal 12760-6) [facility] GLUCOSE (AUTOMATED)2020-10-31 19:05:00 Test Item Value Reference Range Interpretation Comments POCT GLU (test code = 3990653197) 254 mg/dL 70-110 H Lab Interpretation (test code = Abnormal 88927-7) [facility] 15:51:00 Test Item Value Reference Range Interpretation Comments POCT GLU (test code = 7027457331) 202 mg/dL 70-110 H Lab Interpretation (test code = Abnormal 74216-6) [facility] with [id number] 15:22:00 Test Item Value Reference Range Interpretation Comments WBC (test code = See_Comment L [Automated 6690-2) message] The sy stem which generated this result transmitted reference range : 4.20 - 10.70 10*3/?L. The reference range was not used to interpret this result as normal/abnormal . RBC (test code = See_Comment L [Automated 789-8) message] The sy stem which generated this result transmitted reference range : 4.26 - 5.52 10*6/?L. The reference range was not used to interpret this result as normal/abnormal . HGB (test code = 10.5 g/dL 12.2-16.4 L 718-7) HCT (test code = 31.9 % 38.4-49.3 L 4544-3) MCV (test code = 79.9 fL 81.7-95.6 L 787-2) MCH (test code = 26.3 pg 26.1-32.7 785-6) MCHC (test code = 32.9 g/dL 31.2-35.0 786-4) RDW-SD (test code = 36.5 fL 38.5-51.6 L 78039-7) RDW-CV (test code = 12.8 % 12.1-15.4 788-0) PLT (test code = See_Comment L [Automated 777-3) message] The sy stem which generated this result transmitted reference range : 150 - 328 10*3/ ?L. The reference r jaime was not used to interpret this result as normal/abnormal . MPV (test code = 11.8 fL 9.8-13.0 92382-9) NRBC/100 WBC (test See_Comment [Automat ed code = 8639399968) message] The system which generated this result transmitted reference range : 0.0 - 10.0 /100 WBCs. The refer ence range was not u sed to interpret th is result as normal/abnormal . NRBC x10^3 (test code <0.01 See_Comment [Auto mated = 6794122457) message] [employer] which generated this result transmitted reference range : 10*3/?L. The reference range was not used to interpret this result as normal/abnormal . GRAN MAT (NEUT) % 67.2 % (test code = 770-8) IMM GRAN % (test code 0.70 % = 3334456216) LYMPH % (test code = 22.4 % 736-9) MONO % (test code = 9.7 % 5905-5) EOS % (test code = 0.0 % 713-8) BASO % (test code = 0.0 % 706-2) GRAN MAT x10^3(ANC) 1.86 10*3/uL 1.99-6.95 L (test code = 7659030628) IMM GRAN x10^3 (test <0.03 0.00-0.06 code = 3782690693) LYMPH x10^3 (test code 0.62 10*3/uL 1.09-3.23 L = 731-0) MONO x10^3 (test code 0.27 10*3/uL 0.36-1.02 L = 742-7) EOS x10^3 (test code = <0.03 0.06-0.53 L 711-2) BASO x10^3 (test code <0.03 0.01-0.09 = 704-7) Lab Interpretation Abnormal (test code = 64714-3) [facility] [id number] 13:13:00 Test Item Value Reference Range Interpretation Comments TROPONIN I (test 0.002 ng/mL See_Comment [Automated code = 8923710555) message] The system which generated this result transmitted reference range : <=0.034. The reference range was not used to interpret this result as normal/abnormal . MAGDA (test code = Equal or Less than MAGDA) 0.034 ng/ml---Normal ?Note: Cardiac troponin begins to rise 3-4 hours after the onset of ischemia. Repeat in 4-6 hours if the sample was drawn within 3-4 hours of the onset of the symptom and found normal. Between 0.035 and 0.120 ng/mL--- Borderline. Questionable myocardial injury or necrosis ? ?Note: Serial measurement may be necessary to confirm or exclude the diagnosis of myocardial injury or necrosis; Clinical correlation (symptoms, EKGs, imaging studies, and others) required; Repeat in 4-6 hours if clinically indicated. ? Equal or Higher than 0.121 ng/mL---Abnormal. Myocardial Injury or Necrosis Likely ? Biotin has been reported to cause a negative bias, interpret results relative to patient's use of biotin. ? Lab Interpretation Normal (test code = 24688-6) [id number] 13:10:00 Test Item Value Reference Range Interpretation Comments NT-proBNP (test code 323 pg/mL See_Comment H [Autom ated = 2517295837) message] The system which generated this result transmitted reference range : <=125. The reference range was not used to interpret this result as normal/abnormal . MAGDA (test code = MAGDA) Biotin has been reported to cause a negative bias, interpret results relative to patient's use of biotin. Lab Interpretation Abnormal (test code = 01800-7) [facility] (26193[facility]2020-10-31 13:05:00 Test Item Value Reference Range Interpretation Comments NA (test code = 135 mmol/L 135-145 9486995741) K (test code = 4.5 mmol/L 3.5-5.0 9264361477) CL (test code = 105 mmol/L 98-108 2264960305) CO2 TOTAL (test code = 21 mmol/L 23-31 L 8781352929) AGAP (test code = 2-16 3356350729) BUN (test code = 23 mg/dL 7-23 4703042440) GLUCOSE (test code = 218 mg/dL 70-110 H 4145069147) CREATININE (test code = 0.67 mg/dL 0.60-1.25 3679165986) TOTAL BILI (test code = 0.6 mg/dL 0.1-1.6 6895631632) CALCIUM (test code = 8.4 mg/dL 8.6-10.6 L 3748382766) T PROTEIN (test code = 6.9 g/dL 6.3-8.2 4992682893) ALBUMIN (test code = 3.6 g/dL 3.5-5.0 3774373098) ALK PHOS (test code = 75 U/L 34-122 5601098482) ALTv (test code = 29 U/L 5-50 1742-6) AST(SGOT) (test code = 59 U/L 13-40 H 2202162512) eGFR Calculation mL/min/1.73m2 (Non-) (test code = 7489407196) eGFR Calculation mL/min/1.73m2 () (test code = 7119871708) MAGDA (test code = MAGDA) Association of Glomerular Filtration Rate (GFR) and Staging of Kidney Disease* + --+ --+ ------+| GFR (mL/min/1.73 m2) ?| With Kidney Damage ?| ?Without Kidney Damage+ --------+ --------+ +| ?>90 ?| ?Stage one ?| ? Normal ?+ ---+ ---+ -------+| ?60-89 ?| ?Stage two ?| ? Decreased GFR ? + --+ --+ ------+| ?30-59 ?| ?Stage three ?| ? Stage three ? + --+ --+ ------+| ?15-29 ?| ?Stage four ? | ? Stage four ?+ ---+ ---+ -------+| ?<15 (or dialysis) ? ?| ?Stage five ? | ? Stage five ?+ ---+ ---+ -------+ *Each stage assumes the associated GFR level has been in effect for at least three months. ?Stages 1 to 5, with or without kidney disease, indicate chronic kidney disease. Notes: Determination of stages one and two (with eGFR >59mL/min/1.73 m2) requires estimation of kidney damage for at least three months as defined by structural or functional abnormalities of the kidney, manifested by either:Pathological abnormalities or Markers of kidney damage (including abnormalities in the composition of the blood or urine or abnormalities in imaging tests). Lab Interpretation Abnormal (test code = 98442-7) [facility] GLUCOSE (AUTOMATED)2020-10-31 11:11:00 Test Item Value Reference Range Interpretation Comments POCT GLU (test code = 1255767623) 265 mg/dL 70-110 H Lab Interpretation (test code = Abnormal 09918-9) [facility] GLUCOSE (AUTOMATED)2020-10-30 23:59:00 Test Item Value Reference Range Interpretation Comments POCT GLU (test code = 9096004428) 240 mg/dL 70-110 H Lab Interpretation (test code = Abnormal 44091-7) [facility] GLUCOSE (AUTOMATED)2020-10-30 23:59:00 Test Item Value Reference Range Interpretation Comments POCT GLU (test code = 7191254335) 241 mg/dL 70-110 H Lab Interpretation (test code = Abnormal 51392-9) [facility] [id number] 22:35:00 Test Item Value Reference Range Interpretation Comments FERRITIN (test code = 80.2 ng/mL 18.0-464.0 4268841373) MAGDA (test code = MAGDA) Biotin has been reported to cause a negative bias, interpret results relative to patient's use of biotin. Lab Interpretation (test Normal code = 94644-0) [facility]12, [id number] 22:35:00 Test Item Value Reference Range Interpretation Comments VIT B12 (test code = 456 pg/mL 240-930 4794903749) MAGDA (test code = MAGDA) Biotin has been reported to cause a positive bias, interpret results relative to patient's use of biotin. Lab Interpretation (test Normal code = 79781-2) [facility] 18:56:00 Test Item Value Reference Range Interpretation Comments TRANSFERRN (test code = 4288889495) 245 mg/dL 168-336 Lab Interpretation (test code = Normal 49461-4) [facility] 18:52:00 Test Item Value Reference Range Interpretation Comments FOLATE SER (test code = 14.8 ng/mL 3.0-20.0 0525562068) Lab Interpretation (test code = Normal 23472-4) [facility] HospitalPrepare Plasma (in units): 1 Units~Indication: Dilutional Fiwkgfqebhlf7007-05-72 16:47:36 Test Item Value Reference Range Interpretation Comments Unit Blood Type (test O Pos code = 4410) ISBT Blood Type Code (test code = 615385) Unit Number (test code [id number] = 4411) Blood Expiration Date & Time (test code = 378626) Status Information Issued (test code = 4412) Product Identification FFP (test code = 4413) Product Code (test [id number] Performed at [facility] code = 4414) Laboratory Services - [facility] Blood [address] [place] [id number] Free: [phone] A No. [id number] [facility]OLIC PANEL (03359)2020-10-30 15:18:00 Test Item Value Reference Range Interpretation Comments NA (test code = 135 mmol/L 135-145 0684275356) K (test code = 4.1 mmol/L 3.5-5.0 0664083146) CL (test code = 104 mmol/L 98-108 5310427334) CO2 TOTAL (test code = 21 mmol/L 23-31 L 1499464902) AGAP (test code = 2-16 3163917681) BUN (test code = 16 mg/dL 7-23 9014074975) GLUCOSE (test code = 219 mg/dL 70-110 H 6610897165) CREATININE (test code = 0.72 mg/dL 0.60-1.25 6317546401) TOTAL BILI (test code = 0.5 mg/dL 0.1-1.6 3568543631) CALCIUM (test code = 8.0 mg/dL 8.6-10.6 L 4273277005) T PROTEIN (test code = 6.1 g/dL 6.3-8.2 L 6111196115) ALBUMIN (test code = 3.2 g/dL 3.5-5.0 L 5310859196) ALK PHOS (test code = 69 U/L 34-122 9293401084) ALTv (test code = 30 U/L 5-50 1742-6) AST(SGOT) (test code = 53 U/L 13-40 H 9604095256) eGFR Calculation mL/min/1.73m2 (Non-) (test code = 0576689699) eGFR Calculation mL/min/1.73m2 () (test code = 6437756839) MAGDA (test code = MAGDA) Association of Glomerular Filtration Rate (GFR) and Staging of Kidney Disease* + --+ --+ ------+| GFR (mL/min/1.73 m2) ?| With Kidney Damage ?| ?Without Kidney Damage+ --------+ --------+ +| ?>90 ?| ?Stage one ?| ? Normal ?+ ---+ ---+ -------+| ?60-89 ?| ?Stage two ?| ? Decreased GFR ? + --+ --+ ------+| ?30-59 ?| ?Stage three ?| ? Stage three ? + --+ --+ ------+| ?15-29 ?| ?Stage four ? | ? Stage four ?+ ---+ ---+ -------+| ?<15 (or dialysis) ? ?| ?Stage five ? | ? Stage five ?+ ---+ ---+ -------+ *Each stage assumes the associated GFR level has been in effect for at least three months. ?Stages 1 to 5, with or without kidney disease, indicate chronic kidney disease. Notes: Determination of stages one and two (with eGFR >59mL/min/1.73 m2) requires estimation of kidney damage for at least three months as defined by structural or functional abnormalities of the kidney, manifested by either:Pathological abnormalities or Markers of kidney damage (including abnormalities in the composition of the blood or urine or abnormalities in imaging tests). Lab Interpretation Abnormal (test code = 86772-3) [facility] HospitalTRJUAN LUIS [id number] 14:22:00 Test Item Value Reference Range Interpretation Comments TROPONIN I (test 0.002 ng/mL See_Comment [Automated code = 4652960206) message] The system which generated this result transmitted reference range : <=0.034. The reference range was not used to interpret this result as normal/abnormal . MAGDA (test code = Equal or Less than MAGDA) 0.034 ng/ml---Normal ?Note: Cardiac troponin begins to rise 3-4 hours after the onset of ischemia. Repeat in 4-6 hours if the sample was drawn within 3-4 hours of the onset of the symptom and found normal. Between 0.035 and 0.120 ng/mL--- Borderline. Questionable myocardial injury or necrosis ? ?Note: Serial measurement may be necessary to confirm or exclude the diagnosis of myocardial injury or necrosis; Clinical correlation (symptoms, EKGs, imaging studies, and others) required; Repeat in 4-6 hours if clinically indicated. ? Equal or Higher than 0.121 ng/mL---Abnormal. Myocardial Injury or Necrosis Likely ? Biotin has been reported to cause a negative bias, interpret results relative to patient's use of biotin. ? Lab Interpretation Normal (test code = 58651-0) [facility] HospitalIRO [id number] 14:19:00 Test Item Value Reference Range Interpretation Comments IRON (test code = 6583747369) 32 ug/dL 50-160 L TIBC (test code = 1418500630) 339 ug/dL 250-410 % FE SAT (test code = 2668661782) 9 % 20-50 L Lab Interpretation (test code = Abnormal 45313-3) [facility] IRON BINDING [id number] 14:19:00 Test Item Value Reference Range Interpretation Comments TIBC (test code = 2777079691) 339 ug/dL 250-410 Lab Interpretation (test code = Normal 47178-2) [facility] HospitalN-TERMINAL [id number] 14:19:00 Test Item Value Reference Range Interpretation Comments NT-proBNP (test code 124 pg/mL See_Comment [Autom ated = 2979618095) message] The system which generated this result transmitted reference range : <=125. The reference range was not used to interpret this result as normal/abnormal . MAGDA (test code = MAGDA) Biotin has been reported to cause a negative bias, interpret results relative to patient's use of biotin. Lab Interpretation Normal (test code = 41825-7) [facility] with [id number] 13:46:00 Test Item Value Reference Range Interpretation Comments WBC (test code = See_Comment LL [Automated 6690-2) message] The sy stem which generated this result transmitted reference range : 4.20 - 10.70 10*3/?L. The reference range was not used to interpret this result as normal/abnormal . RBC (test code = See_Comment L [Automated 789-8) message] The sy stem which generated this result transmitted reference range : 4.26 - 5.52 10*6/?L. The reference range was not used to interpret this result as normal/abnormal . HGB (test code = 10.3 g/dL 12.2-16.4 L 718-7) HCT (test code = 30.6 % 38.4-49.3 L 4544-3) MCV (test code = 79.5 fL 81.7-95.6 L 787-2) MCH (test code = 26.8 pg 26.1-32.7 785-6) MCHC (test code = 33.7 g/dL 31.2-35.0 786-4) RDW-SD (test code = 37.1 fL 38.5-51.6 L 04895-4) RDW-CV (test code = 13.0 % 12.1-15.4 788-0) PLT (test code = See_Comment L [Automated 777-3) message] The sy stem which generated this result transmitted reference range : 150 - 328 10*3/ ?L. The reference r jaime was not used to interpret this result as normal/abnormal . MPV (test code = 11.0 fL 9.8-13.0 77738-0) IPF % (test code = 4.8 % 1.2-10.7 Platelet count 6368938017) measured by fluorescence method. NRBC/100 WBC (test See_Comment [Automat ed code = 3552512156) message] The system which generated this result transmitted reference range : 0.0 - 10.0 /100 WBCs. The refer ence range was not u sed to interpret th is result as normal/abnormal . NRBC x10^3 (test code <0.01 See_Comment [Auto mated = 8324393567) message] The s ystem which generated this result transmitted reference range : 10*3/?L. The reference range was not used to interpret this result as normal/abnormal . GRAN MAT (NEUT) % 47.9 % (test code = 770-8) IMM GRAN % (test code 0.60 % = 6760938896) LYMPH % (test code = 40.4 % 736-9) MONO % (test code = 11.1 % 5905-5) EOS % (test code = 0.0 % 713-8) BASO % (test code = 0.0 % 706-2) GRAN MAT x10^3(ANC) 0.82 10*3/uL 1.99-6.95 L (test code = 6911933462) IMM GRAN x10^3 (test <0.03 0.00-0.06 code = 7932342087) LYMPH x10^3 (test code 0.69 10*3/uL 1.09-3.23 L = 731-0) MONO x10^3 (test code 0.19 10*3/uL 0.36-1.02 L = 742-7) EOS x10^3 (test code = <0.03 0.06-0.53 L 711-2) BASO x10^3 (test code <0.03 0.01-0.09 = 704-7) REACT LYMPHS (test Rare code = 5723109475) GIANT PLATELETS (test Present See_Comment A [Auto mated code = 5908-9) message] The system which generated this result transmitted reference range : (none). The reference range was not used to interpret this result as normal/abnormal . Lab Interpretation Abnormal (test code = 29917-0) [facility] HospitalABORH [id number] 06:58:29 Test Item Value Reference Range Interpretation Comments ABO & RH (test code O Positive Performe d at [facility] = 20) Laboratory Serv [facility] Blood [facility] [place] [id number] Free: [phone] A No. [id number] [facility] HospitalLEGIONELLA URINARY ANTIGEN [id number] 06:35:00 Test Item Value Reference Range Interpretation Comments Legionella Urinary Negative Negative Antigen (test code = 1462387667) MAGDA (test code = MAGDA) Negative for L. pneumophilia serogroup I antigen in urine suggesting no recent or current infection. Infection due to Legionella cannot be ruled out since other serogroups and species may cause disease. Furthermore, antigens may not be present in urine during early stage of infection, or the level of antigen present in urine may be below the detection limit of the test. Lab Interpretation (test Normal code = 91362-4) [facility] HospitalPNEUMOCOCCAL [id number] 06:35:00 Test Item Value Reference Range Interpretation Comments S. pneumoniae antigen (test code = Negative Negative 4190108400) Lab Interpretation (test code = Normal 40651-4) [facility] HospitalType and Screen - ONCE [id number] 05:43:59 Test Item Value Reference Range Interpretation Comments ABO & RH (test code O Positive Performe d at [facility] = 20) Laboratory Serv [facility] [address] [place] [address] Free: [phone] A No. [id number] IAT (test code = Negative Performed a t [facility] 1185) Laboratory Serv [facility] [address] [place] [address]Toll Free: [phone] A No. [id number] [facility] HospitalLAB ONLY COVID [id number] 04:52:00COVID DMT InterpretationInterpretation/Recommendations: Molecular NAAT Tests for Active Infection with the SARS-CoV-2 Virus: The current test result is positive for the SARS-CoV-2 virus that causes COVID-19 illness. In fqtq-sg-nlmcojmp illness, the patient may be considered no longer infectious whenit has been after 10 days since symptom onset, the patient has been afebrile for 24 hours without the use of fever-reducing medications, AND other symptoms of COVID-19 are improving. However, in patients who have been severely ill with COVID-19 or are severely immunocompromised, isolation up to 20 days after symptom onset is recommended. Asymptomatic patients are considered infectious for the first 10 days subsequent to the initial positive test result. From the onset of symptoms, if any, this result is likely to remain positive up to 2-4 weeks. Tests for IgM and/or IgG Antibodies to the SARS-CoV-2 Virus: ? Testing for IgM and IgG antibodies approximately 3 weeks after illness onset will likely indicate whether the patient has produced antibodies to the SARS-CoV-2 virus. However, some patients may take longer to develop detectable antibodies, while some patients who were infected with SARS-CoV-2 may never develop antibodies. While antibodies to SARS-CoV-2 may provide some degree of immunity, at this time the strength and duration of the antibody response is unknown. Interpretation Result Comments:These interpretation comments are based upon all COVID-19 testing the patient has had at [facility], including molecular NAAT testing (more commonly known as PCR testing and Rapid ID Now testing) and antibody testing. It does not take into account any testing that a patient has had outside of the [facility] medical record. [facility] LABORATORY SERVICESCOVID CfbekabGEVC-NjA-6 Rapid ID NOW (no units) ? ? Date ? Value ? 10/28/2020 ? Positive (A) ? [facility]30 00:03:00 Test Item Value Reference Range Interpretation Comments POCT GLU (test code = 9618664080) 208 mg/dL 70-110 H Lab Interpretation (test code = Abnormal 95471-3) [facility] GLUCOSE (AUTOMATED)2020-10-29 18:33:00 Test Item Value Reference Range Interpretation Comments POCT GLU (test code = 5053363319) 182 mg/dL 70-110 H Lab Interpretation (test code = Abnormal 08874-1) [facility] HospitalPROCALCITONIN2021-02-23 17:09:00 Test Item Value Reference Range Interpretation Comments Procalcitonin (test 0.41 ng/mL <0.07 H code = 6463500301) MAGDA (test code = MAGDA) INTERPRETATION OF PROCALCITONIN RESULTS IN ADULTS >= 18 YEARS OF AGE Initiation and discontinuation of antibiotics on patients with suspected or confirmed Lower Respiratory Tract Infection in Adults >= 18 years of age. + +-------- --------+ + -----+|Procalcitonin |Interpretation ?|Antibiotic ? ? |Considerations ? |ng/mL ? | ?|recommendation | ? + +-------- --------+ + -----+| <0.1 ? | Bacterial ? ? ?| Strongly ? ? ?| ? | ?| infection very | discouraged ? | Overruling: ? | ?| unlikely ? ? ? | ? | ? Clinically unstable ? ? ? + +-------- --------+ + ? High risk for adverse ? ? | <0.25 ?| Bacterial ? ? ?| Discouraged ? | ? outcome ? | ?| infection ? ? ?| ? | ? SEE IMPORTANT NOTE ?| ?| unlikely ? ? ? | ? | ? + +-------- --------+ + -----+| >=0.25 ? ? ? | Bacterial ? ? ?| Encouraged ? ?| ? | ?| infection ? ? ?| ? | ? | ?| likely ? | ? | Consider treatment failure ?+ +------- ---------+ -+ if levels does not decrease | >0.5 ? | Bacterial ? ? ?| Strongly ? ? ?| appropriately ? | ?| infection very | encouraged ? ?| ? | ?| likely ? | ? | ? + +-------- --------+ + -----+ Discontinuation of antibiotics in high-acuity patients with suspected or confirmed sepsis in Adults >= 18 years of age. + +-------- --------+ + -----+|Procalcitonin |Interpretation ?|Antibiotic ? ? |Considerations ? |ng/mL ? | ?|recommendation | ? + +-------- --------+ + -----+| <0.25 ?| Bacterial ? ? ?| Strongly ? ? ?| ? | ?| infection very | discouraged ? | Overruling: ? | ?| unlikely ? ? ? | ? | ? Clinically unstable ? ? ? + +-------- --------+ + ? High risk for adverse ? ? | <0.5 or drop | Bacterial ? ? ?| Discouraged ? | ? outcome ? | >80% from ? ?| infection ? ? ?| ? | ? SEE IMPORTANT NOTE ?| highest PCT ?| unlikely ? ? ? | ? | ? | level ?| ?| ? | ? + +-------- --------+ + -----+| >=0.5 ?| Bacterial ? ? ?| Encouraged ? ?| ? | ?| infection ? ? ?| ? | ? | ?| likely ? | ? | Consider treatment failure ?+ +------- ---------+ -+ if levels does not decrease | >1.0 ? | Bacterial ? ? ?| Strongly ? ? ?| appropriately ? | ?| infection very | encouraged ? ?| ? | ?| likely ? | ? | ? + +-------- --------+ + -----+ Percentage of drop of Procalcitonin calculation for Discontinuation of antibiotics in high-acuity patients with suspected or confirmed sepsis in Adults >= 18 years of age. ? Procalcitonin highest{}-Procalcitonin current{}Delta Procalcitonin = x100% ? Procalcitonin current {} IMPORTANT NOTE: Procalcitonin may be elevated without bacterial infection by physiologic stress related to trauma, house, chronic dialysis, metastatic cancer, surgery in the past seven days, malaria, some fungal infections, and some forms of vasculitis. The interpretation algorithm may not apply to patients with immunosuppression (equivalent of >10 mg of prednisone daily), HIV with CD4 cell count < 350 cells/mm3, active malignancy on systemic chemotherapy, solid organ transplant or hematopoietic stem cell transplantation, or hospital acquired pneumonia. Additionally, some clinical trials of procalcitonin have excluded patients with shock requiring vasopressor use, acute respiratory failure requiring mechanical ventilation, or those with known lung abscess/empyema. For further information please refer to:[email or web address] Lab Interpretation Abnormal (test code = 44603-4) [facility]2020-10-29 14:11:00 Test Item Value Reference Range Interpretation Comments POCT GLU (test code = 2597101596) 164 mg/dL 70-110 H Lab Interpretation (test code = Abnormal 83295-4) [facility] HospitalTROPONIN [id number] 12:13:00 Test Item Value Reference Range Interpretation Comments TROPONIN I (test 0.004 ng/mL See_Comment [Automated code = 3018965020) message] The system which generated this result transmitted reference range : <=0.034. The reference range was not used to interpret this result as normal/abnormal . MAGDA (test code = Equal or Less than MAGDA) 0.034 ng/ml---Normal ?Note: Cardiac troponin begins to rise 3-4 hours after the onset of ischemia. Repeat in 4-6 hours if the sample was drawn within 3-4 hours of the onset of the symptom and found normal. Between 0.035 and 0.120 ng/mL--- Borderline. Questionable myocardial injury or necrosis ? ?Note: Serial measurement may be necessary to confirm or exclude the diagnosis of myocardial injury or necrosis; Clinical correlation (symptoms, EKGs, imaging studies, and others) required; Repeat in 4-6 hours if clinically indicated. ? Equal or Higher than 0.121 ng/mL---Abnormal. Myocardial Injury or Necrosis Likely ? Biotin has been reported to cause a negative bias, interpret results relative to patient's use of biotin. ? Lab Interpretation Normal (test code = 41777-8) [facility] HospitalCOMP. METABOLIC PANEL (77431)2020-10-29 12:04:00 Test Item Value Reference Range Interpretation Comments NA (test code = 136 mmol/L 135-145 0736731503) K (test code = 3.6 mmol/L 3.5-5.0 4136888593) CL (test code = 108 mmol/L 98-108 5690525123) CO2 TOTAL (test code = 19 mmol/L 23-31 L 9301475287) AGAP (test code = 2-16 2919794546) BUN (test code = 15 mg/dL 7-23 2411723216) GLUCOSE (test code = 165 mg/dL 70-110 H 1933140127) CREATININE (test code = 0.88 mg/dL 0.60-1.25 2403572077) TOTAL BILI (test code = 0.5 mg/dL 0.1-1.3 2406870939) CALCIUM (test code = 8.2 mg/dL 8.6-10.6 L 9376253767) T PROTEIN (test code = 6.7 g/dL 6.3-8.2 0043347380) ALBUMIN (test code = 3.6 g/dL 3.5-5.0 1161326365) ALK PHOS (test code = 72 U/L 34-122 0865047514) ALTv (test code = 36 U/L 5-50 1742-6) AST(SGOT) (test code = 64 U/L 13-40 H 1363750819) eGFR Calculation mL/min/1.73m2 (Non-) (test code = 7971384998) eGFR Calculation mL/min/1.73m2 () (test code = 5586343845) MAGDA (test code = MAGDA) Association of Glomerular Filtration Rate (GFR) and Staging of Kidney Disease* + --+ --+ ------+| GFR (mL/min/1.73 m2) ?| With Kidney Damage ?| ?Without Kidney Damage+ --------+ --------+ +| ?>90 ?| ?Stage one ?| ? Normal ?+ ---+ ---+ -------+| ?60-89 ?| ?Stage two ?| ? Decreased GFR ? + --+ --+ ------+| ?30-59 ?| ?Stage three ?| ? Stage three ? + --+ --+ ------+| ?15-29 ?| ?Stage four ? | ? Stage four ?+ ---+ ---+ -------+| ?<15 (or dialysis) ? ?| ?Stage five ? | ? Stage five ?+ ---+ ---+ -------+ *Each stage assumes the associated GFR level has been in effect for at least three months. ?Stages 1 to 5, with or without kidney disease, indicate chronic kidney disease. Notes: Determination of stages one and two (with eGFR >59mL/min/1.73 m2) requires estimation of kidney damage for at least three months as defined by structural or functional abnormalities of the kidney, manifested by either:Pathological abnormalities or Markers of kidney damage (including abnormalities in the composition of the blood or urine or abnormalities in imaging tests). Lab Interpretation Abnormal (test code = 97074-0) [facility] with [id number] 11:53:00 Test Item Value Reference Range Interpretation Comments WBC (test code = See_Comment L [Automated 6290-2) message] The sy stem which generated this result transmitted reference range : 4.20 - 10.70 10*3/?L. The reference range was not used to interpret this result as normal/abnormal . RBC (test code = See_Comment L [Automated 789-8) message] The sy stem which generated this result transmitted reference range : 4.26 - 5.52 10*6/?L. The reference range was not used to interpret this result as normal/abnormal . HGB (test code = 10.8 g/dL 12.2-16.4 L 718-7) HCT (test code = 32.8 % 38.4-49.3 L 4544-3) MCV (test code = 81.4 fL 81.7-95.6 L 787-2) MCH (test code = 26.8 pg 26.1-32.7 785-6) MCHC (test code = 32.9 g/dL 31.2-35.0 786-4) RDW-SD (test code = 38.6 fL 38.5-51.6 66714-8) RDW-CV (test code = 13.1 % 12.1-15.4 788-0) PLT (test code = See_Comment L [Automated 777-3) message] The sy stem which generated this result transmitted reference range : 150 - 328 10*3/ ?L. The reference r jaime was not used to interpret this result as normal/abnormal . MPV (test code = 11.1 fL 9.8-13.0 72050-0) IPF % (test code = 3.2 % 1.2-10.7 Platelet count 0966377823) measured by fluorescence method. NRBC/100 WBC (test See_Comment [Automat ed code = 9673016086) message] The system which generated this result transmitted reference range : 0.0 - 10.0 /100 WBCs. The refer ence range was not u sed to interpret th is result as normal/abnormal . NRBC x10^3 (test code <0.01 See_Comment [Auto mated = 7828882721) message] The s ystem which generated this result transmitted reference range : 10*3/?L. The reference range was not used to interpret this result as normal/abnormal . GRAN MAT (NEUT) % 50.3 % (test code = 770-8) IMM GRAN % (test code 0.40 % = 8163973833) LYMPH % (test code = 41.3 % 736-9) MONO % (test code = 8.0 % 5905-5) EOS % (test code = 0.0 % 713-8) BASO % (test code = 0.0 % 706-2) GRAN MAT x10^3(ANC) 1.13 10*3/uL 1.99-6.95 L (test code = 2563987912) IMM GRAN x10^3 (test <0.03 0.00-0.06 code = 0245726850) LYMPH x10^3 (test code 0.93 10*3/uL 1.09-3.23 L = 731-0) MONO x10^3 (test code 0.18 10*3/uL 0.36-1.02 L = 742-7) EOS x10^3 (test code = <0.03 0.06-0.53 L 711-2) BASO x10^3 (test code <0.03 0.01-0.09 = 704-7) Lab Interpretation Abnormal (test code = 66218-5) [facility] [facility] [id number] 04:28:14 Patchy pulmonary opacities suggestive of an atypical infectious orinflammatory process, consistent with positive COVID status. Preliminary Report Dictated by Resident: Maximiliano Humphrey MD., have reviewed this study and agree with theabove report.EXAM: XR CHEST 1 VW HISTORY: hypoxia COMPARISON: 04/07/2016 chest radiograph FINDINGS: Hazy/patchy pulmonary opacities are seen bilaterally which are morepronounced on the left where it demonstrates a peripheral predominance. Nopleural effusion or pneumothorax. The cardiomediastinal silhouette isnormal in size. ?No acute osseous abnormalities. [facility], Radiant Results Inft User - 10/28/2020 10:29 PM CSTEXAM: XR CHEST 1 VWHISTORY: hypoxia COMPARISON: 04/07/2016 chest radiographFINDINGS:Hazy/patchy pulmonary opacities are seen bilaterally which are morepronounced on the left where it demonstrates a peripheral predominance. Nopleural effusionor pneumothorax. The cardiomediastinal silhouette isnormal in size. No acute osseous abnormalities.I MPRESSIONPatchy pulmonary opacities suggestive of an atypical infectious orinflammatory process, consistent with positive COVID status.Preliminary Report Dictated by Resident: Abhishek Hudson MD., have reviewed this study and agree with theabove report.[facility] WITH [id number] 02:10:00 Test Item Value Reference Range Interpretation Comments WBC (test code = See_Comment L [Automated 6690-2) message] The sy stem which generated this result transmitted reference range : 4.20 - 10.70 10*3/?L. The reference range was not used to interpret this result as normal/abnormal . RBC (test code = See_Comment L [Automated 789-8) message] The sy stem which generated this result transmitted reference range : 4.26 - 5.52 10*6/?L. The reference range was not used to interpret this result as normal/abnormal . HGB (test code = 11.4 g/dL 12.2-16.4 L 718-7) HCT (test code = 34.1 % 38.4-49.3 L 4544-3) MCV (test code = 80.8 fL 81.7-95.6 L 787-2) MCH (test code = 27.0 pg 26.1-32.7 785-6) MCHC (test code = 33.4 g/dL 31.2-35.0 786-4) RDW-SD (test code = 37.9 fL 38.5-51.6 L 90298-8) RDW-CV (test code = 13.0 % 12.1-15.4 788-0) PLT (test code = See_Comment L [Automated 777-3) message] The sy stem which generated this result transmitted reference range : 150 - 328 10*3/ ?L. The reference r jaime was not used to interpret this result as normal/abnormal . MPV (test code = 10.8 fL 9.8-13.0 12171-0) NRBC/100 WBC (test See_Comment [Automat ed code = 0850358127) message] The system which generated this result transmitted reference range : 0.0 - 10.0 /100 WBCs. The refer ence range was not u sed to interpret th is result as normal/abnormal . NRBC x10^3 (test code <0.01 See_Comment [Auto mated = 3905132977) message] The s ystem which generated this result transmitted reference range : 10*3/?L. The reference range was not used to interpret this result as normal/abnormal . GRAN MAT (NEUT) % 57.6 % (test code = 770-8) IMM GRAN % (test code 0.40 % = 9965506065) LYMPH % (test code = 35.0 % 736-9) MONO % (test code = 6.6 % 5905-5) EOS % (test code = 0.0 % 713-8) BASO % (test code = 0.4 % 706-2) GRAN MAT x10^3(ANC) 1.30 10*3/uL 1.99-6.95 L (test code = 1738659415) IMM GRAN x10^3 (test <0.03 0.00-0.06 code = 1260334625) LYMPH x10^3 (test code 0.79 10*3/uL 1.09-3.23 L = 731-0) MONO x10^3 (test code 0.15 10*3/uL 0.36-1.02 L = 742-7) EOS x10^3 (test code = <0.03 0.06-0.53 L 711-2) BASO x10^3 (test code <0.03 0.01-0.09 = 704-7) Lab Interpretation Abnormal (test code = 05929-1) [id number] Test Item Value Reference Range Interpretation Comments TROPONIN I (test 0.004 ng/mL See_Comment [Automated code = 2762987163) message] The system which generated this result transmitted reference range : <=0.034. The reference range was not used to interpret this result as normal/abnormal . MAGDA (test code = Equal or Less than MAGDA) 0.034 ng/ml---Normal ?Note: Cardiac troponin begins to rise 3-4 hours after the onset of ischemia. Repeat in 4-6 hours if the sample was drawn within 3-4 hours of the onset of the symptom and found normal. Between 0.035 and 0.120 ng/mL--- Borderline. Questionable myocardial injury or necrosis ? ?Note: Serial measurement may be necessary to confirm or exclude the diagnosis of myocardial injury or necrosis; Clinical correlation (symptoms, EKGs, imaging studies, and others) required; Repeat in 4-6 hours if clinically indicated. ? Equal or Higher than 0.121 ng/mL---Abnormal. Myocardial Injury or Necrosis Likely ? Biotin has been reported to cause a negative bias, interpret results relative to patient's use of biotin. ? Lab Interpretation Normal (test code = 43628-0) [id number] 01:52:00 Test Item Value Reference Range Interpretation Comments NT-proBNP (test code 65 pg/mL See_Comment [Autom ated = 9796756718) message] The system which generated this result transmitted reference range : <=125. The reference range was not used to interpret this result as normal/abnormal . MAGDA (test code = MAGDA) Biotin has been reported to cause a negative bias, interpret results relative to patient's use of biotin. Lab Interpretation Normal (test code = 09812-4) [facility]:52:00 Test Item Value Reference Range Interpretation Comments APPEARANCE (test code = Hazy Clear A 9765346778) COLOR (test code = Leigh Yellow A 2963213139) PH (test code = 4.8-8.0 1588716331) SP GRAVITY (test code = 1.003-1.030 H 5656724727) GLU U QUAL (test code = Normal Normal 4831786274) BLOOD (test code = Negative Negative 1975526882) KETONES (test code = 5 mg/dL Negative A 3922956537) PROTEIN (test code = 30 mg/dL Negative A 2887-8) UROBILIN (test code = 4.0 mg/dL Normal A 7615027850) BILIRUBIN (test code = 2 mg/dL Negative A 4960914732) NITRITE (test code = Negative Negative 3115916008) LEUK WALT (test code = Negative Negative 5062400546) RBC/HPF (test code = See_Comment [Autom ated message] 3644907811) The system [employer]ok[employer] generated this result transmit liliana reference range : 0 - 3 HPF. The refe rence range was not u sed to interpret th is result as normal/abnormal . WBC/HPF (test code = See_Comment H [Autom ated message] 0397327726) The system [employer] generated this result transmit liliana reference range : 0 - 5 HPF. The refe rence range was not u sed to interpret th is result as normal/abnormal . BACTERIA (test code = Negative Negative 1682563496) MUCOUS (test code = Slight Negative LPF A 8392938963) SQ EPITH (test code = <1 HPF 8222342270) HYAL CAST (test code = See_Comment H [Aut omated message] 0136189247) The system [employer] generated this result transmit liliana reference range : <=2 LPF. The refere nce range was not u sed to interpret th is result as normal/abnormal . Lab Interpretation (test Abnormal code = 36498-4) [id number] 01:50:00 Test Item Value Reference Interpretation Comments Range D-DIMER (test code = See_Comment H [Autom ated 8509761989) message] The system which generated this result transmitted reference range : <0.41 ?g/mL (FEU). The reference range was not used to interpret this result as normal/abnormal . MAGDA (test code = This test may be MAGDA) used in conjunction with a clinical pretest probability (PTP) assessment model to exclude venous thromboembolism (VTE) in patients suspected of deep venous thrombosis (DVT) and pulmonary embolism (PE) A D-Dimer value less than 0.50 ?g/ml (FEU) has a negative predicative value of 96 to 100% (95% CI)and 97 to 100% (95% CI) as an aid in the diagnosis of deep vein thrombosis (DVT) and pulmonary embolism when there is low or moderate pretest probability of PE or DVT. D-Dimer values are expressed in initial fibrinogen equivalent units (FEU)" The assay results should be used with other information, including the clinical context, in forming a diagnosis. Lab Interpretation Abnormal (test code = 67317-4) [facility]. METABOLIC PANEL (16677)2020-10-29 01:43:00 Test Item Value Reference Range Interpretation Comments NA (test code = 137 mmol/L 135-145 1054195525) K (test code = 3.7 mmol/L 3.5-5.0 0674250278) CL (test code = 107 mmol/L 98-108 0789669148) CO2 TOTAL (test code = 20 mmol/L 23-31 L 0155198599) AGAP (test code = 2-16 0413956539) BUN (test code = 15 mg/dL 7-23 1199084959) GLUCOSE (test code = 220 mg/dL 70-110 H 4143120047) CREATININE (test code = 1.07 mg/dL 0.60-1.25 3058019234) TOTAL BILI (test code = 0.6 mg/dL 0.1-1.4 8401611232) CALCIUM (test code = 8.2 mg/dL 8.6-10.6 L 2825326660) T PROTEIN (test code = 7.2 g/dL 6.3-8.2 0400885679) ALBUMIN (test code = 3.8 g/dL 3.5-5.0 8054807288) ALK PHOS (test code = 69 U/L 34-122 6401834363) ALTv (test code = 38 U/L 5-50 1742-6) AST(SGOT) (test code = 66 U/L 13-40 H 5754266735) eGFR Calculation mL/min/1.73m2 (Non-) (test code = 2124057331) eGFR Calculation mL/min/1.73m2 () (test code = 2229800221) MAGDA (test code = MAGDA) Association of Glomerular Filtration Rate (GFR) and Staging of Kidney Disease* + --+ --+ ------+| GFR (mL/min/1.73 m2) ?| With Kidney Damage ?| ?Without Kidney Damage+ --------+ --------+ +| ?>90 ?| ?Stage one ?| ? Normal ?+ ---+ ---+ -------+| ?60-89 ?| ?Stage two ?| ? Decreased GFR ? + --+ --+ ------+| ?30-59 ?| ?Stage three ?| ? Stage three ? + --+ --+ ------+| ?15-29 ?| ?Stage four ? | ? Stage four ?+ ---+ ---+ -------+| ?<15 (or dialysis) ? ?| ?Stage five ? | ? Stage five ?+ ---+ ---+ -------+ *Each stage assumes the associated GFR level has been in effect for at least three months. ?Stages 1 to 5, with or without kidney disease, indicate chronic kidney disease. Notes: Determination of stages one and two (with eGFR >59mL/min/1.73 m2) requires estimation of kidney damage for at least three months as defined by structural or functional abnormalities of the kidney, manifested by either:Pathological abnormalities or Markers of kidney damage (including abnormalities in the composition of the blood or urine or abnormalities in imaging tests). Lab Interpretation Abnormal (test code = 32906-8) [facility] NOW RAPID TESTING)2020-10-29 01:36:00 Test Item Value Reference Range Interpretation Comments SARS-CoV-2 Rapid ID NOW Positive Not Detected A (test code = 03197-8) MAGDA (test code = MAGDA) ID NOW COVID-19 Assay is an isothermal nucleic acid amplification test intended for the qualitative detection of nucleic acid from SARS-CoV-2 viral RNA in nasopharyngeal ([employer]ACHINE [employer]ATOR) specimens. It is used under Emergency Use Authorization (EUA) by FDA. The limit of detection (LOD) of the assay is 125 Genome Equivalents/mL. A positive result is indicative of the presence of SARS-CoV-2 RNA. ?Clinical correlation with patient history and other diagnostic information is necessary to determine patient infection status. A negative (Not Detected) result does not preclude SARS-CoV-2 infection. In patients with clinical symptoms and other tests that are consistent with SARS-CoV-2 infection, negative results should be treated as presumptive negative and a new specimen should be tested with alternative PCR molecular test. Invalid: Please collect a new specimen for repeat patient testing if clinically indicated. Lab Interpretation Abnormal (test code = 75430-7) [facility] WITH [id number] 17:06:00 Test Item Value Reference Range Interpretation Comments WBC (test code = See_Comment [Automated 3677-2) message] The sy stem which generated this result transmitted reference range : 4.20 - 10.70 10*3/?L. The reference range was not used to interpret this result as normal/abnormal . RBC (test code = See_Comment [Automated 139-8) message] The sy stem which generated this result transmitted reference range : 4.26 - 5.52 10*6/?L. The reference range was not used to interpret this result as normal/abnormal . HGB (test code = 13.7 g/dL 12.2-16.4 718-7) HCT (test code = 42.0 % 38.4-49.3 4544-3) MCV (test code = 81.6 fL 81.7-95.6 L 787-2) MCH (test code = 26.6 pg 26.1-32.7 785-6) MCHC (test code = 32.6 g/dL 31.2-35 786-4) RDW-SD (test code = 40.0 fL 38.5-51.6 19598-1) RDW-CV (test code = 13.5 % 12.1-15.4 788-0) PLT (test code = See_Comment [Automated 127-3) message] The sy stem which generated this result transmitted reference range : 150 - 328 10*3/ ?L. The reference r jaime was not used to interpret this result as normal/abnormal . MPV (test code = 10.6 fL 9.8-13 16376-7) NRBC/100 WBC (test See_Comment [Automat ed code = 4470341384) message] The system which generated this result transmitted reference range : 0.0 - 10.0 /100 WBCs. The refer ence range was not u sed to interpret th is result as normal/abnormal . NRBC x10^3 (test code <0.01 See_Comment [Auto mated = 3378018944) message] The s ystem which generated this result transmitted reference range : 10*3/?L. The reference range was not used to interpret this result as normal/abnormal . GRAN MAT (NEUT) % 55.2 % (test code = 770-8) IMM GRAN % (test code 0.20 % = 7020120144) LYMPH % (test code = 32.5 % 736-9) MONO % (test code = 9.3 % 5905-5) EOS % (test code = 2.1 % 713-8) BASO % (test code = 0.7 % 706-2) GRAN MAT x10^3(ANC) 3.15 10*3/uL 1.99-6.95 (test code = 2392366784) IMM GRAN x10^3 (test <0.03 0-0.06 code = 5574550803) LYMPH x10^3 (test code 1.85 10*3/uL 1.09-3.23 = 731-0) MONO x10^3 (test code 0.53 10*3/uL 0.36-1.02 = 742-7) EOS x10^3 (test code = 0.12 10*3/uL 0.06-0.53 711-2) BASO x10^3 (test code 0.04 10*3/uL 0.01-0.09 = 704-7) Lab Interpretation Abnormal (test code = 07618-0) [facility]22442)(TOTAL CHOLESTEROL, TRIGLYCERIDES, HDL)2019-09-29 16:53:00 Test Item Value Reference Range Interpretation Comments CHOL (test code = 142 mg/dL 120-200 5567416610) HDL (test code = 40 mg/dL >40 L 4225610129) HDLC RATIO (test code = See_Comment [Au tomated message] 2571455066) The system [employer] generated this result transmit liliana reference range : <=5.0. The refe rence range was not u sed to interpret th is result as normal/abnormal . TRIG (test code = 234 mg/dL 30-170 H 7305787863) LDL CHOL (test code = 55 mg/dL See_Comment [Auto mated message] 91986-8) The system [employer] generated this result transmit liliana reference range : <=160. The refe rence range was not u sed to interpret th is result as normal/abnormal . VLDL (test code = 47 mg/dL 5-60 7138059192) Lab Interpretation (test Abnormal code = 11923-6) [facility]. METABOLIC PANEL (58218)2019-09-29 16:53:00 Test Item Value Reference Range Interpretation Comments NA (test code = 138 mmol/L 135-145 1065791216) K (test code = 4.6 mmol/L 3.5-5 8333162677) CL (test code = 103 mmol/L 98-108 1753556513) CO2 TOTAL (test code = 23 mmol/L 23-31 8899185851) AGAP (test code = 2-16 9445224127) BUN (test code = 12 mg/dL 7-23 3649908063) GLUCOSE (test code = 166 mg/dL 70-110 H 1137608719) CREATININE (test code = 0.91 mg/dL 0.6-1.25 0066761534) TOTAL BILI (test code = 0.5 mg/dL 0.1-1.8 8323131978) CALCIUM (test code = 9.5 mg/dL 8.6-10.6 1603049140) T PROTEIN (test code = 7.9 g/dL 6.3-8.2 7495743599) ALBUMIN (test code = 4.2 g/dL 3.5-5 2200499993) ALK PHOS (test code = 113 U/L 34-122 8074978027) ALTv (test code = 41 U/L 5-50 1742-6) AST(SGOT) (test code = 57 U/L 13-40 H 5156209397) eGFR Calculation mL/min/1.73m2 (Non-) (test code = 0038263484) eGFR Calculation mL/min/1.73m2 () (test code = 8582494516) MAGDA (test code = MAGDA) Association of Glomerular Filtration Rate (GFR) and Staging of Kidney Disease* + --+ --+ ------+| GFR (mL/min/1.73 m2) ?| With Kidney Damage ?| ?Without Kidney Damage+ --------+ --------+ +| ?>90 ?| ?Stage one ?| ? Normal ?+ ---+ ---+ -------+| ?60-89 ?| ?Stage two ?| ? Decreased GFR ? + --+ --+ ------+| ?30-59 ?| ?Stage three ?| ? Stage three ? + --+ --+ ------+| ?15-29 ?| ?Stage four ? | ? Stage four ?+ ---+ ---+ -------+| ?<15 (or dialysis) ? ?| ?Stage five ? | ? Stage five ?+ ---+ ---+ -------+ *Each stage assumes the associated GFR level has been in effect for at least three months. ?Stages 1 to 5, with or without kidney disease, indicate chronic kidney disease. Notes: Determination of stages one and two (with eGFR >59mL/min/1.73 m2) requires estimation of kidney damage for at least three months as defined by structural or functional abnormalities of the kidney, manifested by either:Pathological abnormalities or Markers of kidney damage (including abnormalities in the composition of the blood or urine or abnormalities in imaging tests). Lab Interpretation Abnormal (test code = 15532-3) [facility] [id number] 15:27:00 Test Item Value Reference Range Interpretation Comments POCT HBA1C (test code = 4548-4) 7.6% 4-6 [facility]
[2021-11-20] MEDS ORDERED: ONDANSETRON 4 MG/2 ML VIAL ONE (02:48)
[2021-11-20] MEDS ORDERED: MORPHINE 4 MG/ML SYR ONE (02:48)
[2021-11-20] MEDS ORDERED: FAMOTIDINE 20 MG/2 ML VIAL IV ONE (02:49)
[2021-11-20 02:56] LABS: Absolute Lymphocytes (CBC) 2.7 K/uL (0.7-4.9); Hematocrit 43.8 % (39.6-49.0); Lymphocytes % 42.2 % (15.3-44.8); MPV 7.9 fL (7.6-11.3); RBC Red Blood Cell Count 5.07 M/uL (4.33-5.43)
[2021-11-20 03:05] LABS: ALT/SGPT 75 U/L (12-78); AST/SGOT 61 U/L (15-37); Albumin 3.8 g/dL (3.4-5.0); Alkaline Phosphatase 131 U/L (45-117); BUN Blood Urea Nitrogen 14 mg/dL (7-18); Bicarbonate 17 mmol/L (21-32); Bilirubin Total 0.4 mg/dL (0.2-1.0); Glucose Level 211 mg/dL (74-106); Lipase 205 U/L (73-393); Protein, Total 8.2 g/dL (6.4-8.2); Sodium Level 133 mmol/L (136-145)
--- NOTE | 2021-11-20 04:45 | EDPHYS ---
Physician Documentation [facility] Name: Baldomero Murrell Age: 56 yrs Sex: Male : 1965 Arrival Date: 11/19/2021 Time: 22:50 Bed 14 Private MD: ED Physician Darell Shaw HPI: 11/20 06:30 This 56 yrs old Male presents to ER via Ambulatory with complaints of kdr Epigastric Pain. 06:30 The patient presents with abdominal pain in the upper abdomen. Onset: The kdr symptoms/episode began/occurred gradually, 5 day(s) ago. The symptoms do not radiate. Associated signs and symptoms: Pertinent positives: nausea and vomiting, Pertinent negatives: dysuria, fever, headache, hematuria, shortness of breath, testicular pain. The symptoms are described as achy, dull, Patient complains of persistent soreness at the infracostal margin inferior to the nipple on the left side. Modifying factors: The symptoms are alleviated by nothing, the symptoms are aggravated by movement, nothing. pressure, touching the area. Severity of pain: At its worst the pain was mild moderate just prior to arrival, in the emergency department the pain has improved mildly. The patient has not experienced similar symptoms in the past. The patient has not recently seen a physician. Historical: - Allergies: 11/19 23:35 PENICILLINS; ke1 23:35 Iodine; ke1 - PMHx: 23:35 Diabetes mellitus; Hypertensive disorder; ke1 - Immunization history:: do not take it. - Social history:: Smoking status: Patient/guardian denies using tobacco, the patient reports quitting approximately 25 years ago. ROS: 11/20 06:30 Constitutional: Negative for fever, chills, and weight loss, Eyes: Negative for injury, kdr pain, redness, and discharge, ENT: Negative for injury, pain, and discharge, Neck: Negative for injury, pain, and swelling, Respiratory: Negative for shortness of breath, cough, wheezing, and pleuritic chest pain, Back: Negative for injury and pain, : Negative for injury, bleeding, discharge, and swelling, MS/Extremity: Negative for injury and deformity, Skin: Negative for injury, rash, and discoloration, Neuro: Negative for headache, weakness, numbness, tingling, and seizure activity. Psych: Negative for depression, anxiety, suicide ideation, homicidal ideation, and hallucinations, Allergy/Immunology: Negative for hives, rash, and allergies, Endocrine: Negative for neck swelling, polydipsia, polyuria, polyphagia, and marked weight changes, Hematologic/Lymphatic: Negative for swollen nodes, abnormal bleeding, and unusual bruising. Cardiovascular: Positive for chest pain, of the diaphragm, Negative for edema, orthopnea, palpitations, paroxysmal nocturnal dyspnea. Abdomen/GI: Positive for abdominal pain, nausea, Negative for abdominal distension, black/tarry stool, rectal pain, rectal bleeding, bowel incontinence. Exam: 05:27 ECG was reviewed by the Attending Physician. kdr 06:30 Constitutional: This is a well developed, well nourished patient who is awake, alert, kdr and in no acute distress. Head/Face: Normocephalic, atraumatic. Eyes: Pupils equal round and reactive to light, extra-ocular motions intact. Lids and lashes normal. Conjunctiva and sclera are non-icteric and not injected. Cornea within normal limits. Periorbital areas with no swelling, redness, or edema. Neck: Trachea midline, no thyromegaly or masses palpated, and no cervical lymphadenopathy. Supple, full range of motion without nuchal rigidity, or vertebral point tenderness. No Meningismus. Cardiovascular: Regular rate and rhythm with a normal S1 and S2. No gallops, murmurs, or rubs. Normal PMI, no JVD. No pulse deficits. Respiratory: Lungs have equal breath sounds bilaterally, clear to auscultation and percussion. No rales, rhonchi or wheezes noted. No increased work of breathing, no retractions or nasal flaring. Back: No spinal tenderness. No costovertebral tenderness. Full range of motion. Skin: Warm, dry with normal turgor. Normal color with no rashes, no lesions, and no evidence of cellulitis. MS/ Extremity: Pulses equal, no cyanosis. Neurovascular intact. Full, normal range of motion. Neuro: Awake and alert, GCS 15, oriented to person, place, time, and situation. Cranial nerves II-XII grossly intact. Motor strength 5/5 in all extremities. Sensory grossly intact. Cerebellar exam normal. Normal gait. Psych: Awake, alert, with orientation to person, place and time. Behavior, mood, and affect are within normal limits. 06:30 Chest/axilla: Inspection: normal, Palpation: tenderness, that is mild, of the diaphragm and left breast. Vital Signs: 11/19 23:33 BP 111 / 69; Pulse 89; Resp 19; Temp 97.9; Pulse Ox 97% ; Weight 89.81 kg; Height 5 ft. ke1 10 in. (177.80 cm); Pain 8/10; 11/20 01:42 BP 125 / 75; Pulse 88; Resp 17; Pulse Ox 95% on R/A; ke1 03:17 BP 130 / 87; Pulse 87; Resp 18; Pulse Ox 94% on R/A; ke1 04:37 BP 118 / 81; Pulse 94; Resp 17; Pulse Ox 95% ; ke1 07:00 BP 122 / 74; Pulse 80; Resp 16 S; Pulse Ox 98% on R/A; Pain 4/10; jg9 11/19 23:33 Body Mass Index 28.41 (89.81 kg, 177.80 cm) ke1 MDM: 04:45 Patient medically screened. kdr 06:30 Data reviewed: vital signs, nurses notes, old medical records, radiologic studies. kdr Counseling: I had a detailed discussion with the patient and/or guardian regarding: the historical points, exam findings, and any diagnostic results supporting the discharge/admit diagnosis, lab results, radiology results, the need for outpatient follow up. 07:00 Transition of care: Care assumed from Ede Shirley MD. ms3 08:30 Differential diagnosis: myocardia ischemia or infarction, non-specific abd pain, ms3 pancreatitis. Special discussion: Based on the patient's Hx, exam, and Dx evaluation, there is no indication for emergent surgery or inpatient Tx. It is understood by the patient/guardian that if the Sx's persist or worsen they need to return immediately for re-evaluation. 11/19 23:53 Order name: CBC with Diff; Complete Time: 03:14 bb 11/19 23:53 Order name: CMP; Complete Time: 03:14 bb 11/19 23:53 Order name: Lipase; Complete Time: 03:14 bb 11/20 02:07 Order name: Troponin High Sensitivity; Complete Time: 08:30 kdr 11/20 02:13 Order name: ETOH Level; Complete Time: 03:14 kdr 11/19 23:39 Order name: EKG - Nurse/Tech; Complete Time: 23:55 ke1 11/19 23:53 Order name: IV Saline Lock; Complete Time: 00:03 11/19 23:53 Order name: Labs collected and sent; Complete Time: 00:03 11/20 03:33 Order name: Abdomen EDMS EC:27 Rate is 73 beats/min. Rhythm is regular, Sinus Rhythm with No ectopy. QRS [place] is kdr Normal. FL interval is normal. QRS interval is normal. Clinical impression: NSR w/ Non-specific ST/T Changes. Administered Medications: 02:53 Drug: Pepcid (famotidine) 20 mg Route: IVP; Site: left antecubital; ke1 03:20 Follow up: Response: Marked relief of symptoms ke1 02:54 Drug: morphine 4 mg Route: IVP; Site: left antecubital; ke1 03:20 Follow up: Response: Marked relief of symptoms ke1 02:54 Drug: Zofran (Ondansetron) 4 mg Route: IVP; Site: left antecubital; ke1 03:20 Follow up: Response: Marked relief of symptoms ke1 Disposition Summary: 11/20/21 04:45 Discharge Ordered Location: Home kdr Problem: new kdr Symptoms: have improved kdr Condition: Stable kdr Diagnosis - Upper abdominal pain, unspecified kdr Followup: kdr - With: Private Physician - When: 2 - 3 days - Reason: If symptoms return, Further diagnostic work-up, Recheck today's complaints, Continuance of care, Re-evaluation by your physician Discharge Instructions: - Discharge Summary Sheet kdr - Abdominal Pain, Adult kdr - Alcohol Intoxication, [id number] kdr - Alcohol Abuse and Dependence Information, Adult kdr Forms: - Medication Reconciliation Form kdr - Thank You Letter kdr Signatures: Dispatcher [employer] EDMS Ede Shirley MD MD kdr Christine Levy, JONG RN Darell Martin DO DO ms3 Jamila Lazaro RN RN ke1 Corrections: (The following items were deleted from the chart) 03:33 02:08 Abdomen Pelvis W Con+CT.RAD.BRZ ordered. EDMS EDMS
--- NOTE | 2021-11-20 04:45 | ER ---
Nurse's Notes [facility] Name: Baldomero Murrell Age: 56 yrs Sex: Male : 1965 Arrival Date: 11/19/2021 Time: 22:50 Bed 14 Private MD: Diagnosis: Upper abdominal pain, unspecified Presentation: 11/19 23:33 Chief complaint: Patient states: Sharp Epigastric pain since about 5 days ago. ke1 Coronavirus screen: Vaccine status: Patient reports receiving the 2nd dose of the covid vaccine. Ebola Screen: No symptoms or risks identified at this time. Initial Sepsis Screen: Does the patient meet any 2 criteria? No. Patient's initial sepsis screen is negative. Does the patient have a suspected source of infection? No. Patient's initial sepsis screen is negative. Risk Assessment: Do you want to hurt yourself or someone else? Patient reports no desire to harm self or others. Onset of symptoms was November 14, 2021. 23:33 Method Of Arrival: Ambulatory [facility] 23:33 Acuity: AMANUEL 3 ke1 Triage Assessment: 23:35 General: Appears uncomfortable, Behavior is cooperative. Pain: Complains of pain in ke1 epigastric Pain radiates to lower abdomen. Historical: - Allergies: 23:35 PENICILLINS; ke1 23:35 Iodine; ke1 - PMHx: 23:35 Diabetes mellitus; Hypertensive disorder; ke1 - Immunization history:: do not take it. - Social history:: Smoking status: Patient/guardian denies using tobacco, the patient reports quitting approximately 25 years ago. Screenin/17 01:35 Abuse screen: Denies threats or abuse. Nutritional screening: No deficits noted. ke1 Tuberculosis screening: No symptoms or risk factors identified. Fall Risk No fall in past 12 months (0 pts). No secondary diagnosis (0 pts). IV access (20 points). Ambulatory Aid- None/Bed Rest/Nurse Assist (0 pts). Gait- Normal/Bed Rest/Wheelchair (0 pts) Mental Status- Oriented to own ability (0 pts). Total Dyer Fall Scale indicates No Risk (0-24 pts). Assessment: 01:31 General: Appears uncomfortable, Behavior is calm, cooperative. Pain: Complains of pain ke1 in epigastric Pain currently is 8 out of 10 on a pain scale. Neuro: Level of Consciousness is awake, alert, Oriented to person, place, time, situation. Cardiovascular: Heart tones S1 S2. Respiratory: Airway is patent Trachea midline Breath sounds are clear. GI: Bowel sounds present X 4 quads. Abd is non tender. : No deficits noted. EENT: No deficits noted. Derm: No deficits noted. Musculoskeletal: No deficits noted. 03:16 Reassessment: Patient states feeling better. Patient states symptoms have improved. ke1 Pain: Complains of pain in epigastric Pain currently is 5 out of 10 on a pain scale. 04:31 Reassessment: Patient states feeling better. Patient states symptoms have improved. as6 05:01 Reassessment: Troponin lab has been sent to [facility] is waiting for results before [facility] discharge. 07:22 Reassessment: Patient appears in no apparent distress at this time. awaiting troponin j9 test results. Vital Signs: 11/19 23:33 BP 111 / 69; Pulse 89; Resp 19; Temp 97.9; Pulse Ox 97% ; Weight 89.81 kg; Height 5 ft. ke1 10 in. (177.80 cm); Pain 8/10; 11/20 01:42 BP 125 / 75; Pulse 88; Resp 17; Pulse Ox 95% on R/A; ke1 03:17 BP 130 / 87; Pulse 87; Resp 18; Pulse Ox 94% on R/A; ke1 04:37 BP 118 / 81; Pulse 94; Resp 17; Pulse Ox 95% ; ke1 07:00 BP 122 / 74; Pulse 80; Resp 16 S; Pulse Ox 98% on R/A; Pain 4/10; jg9 11/19 23:33 Body Mass Index 28.41 (89.81 kg, 177.80 cm) [facility] ED Course: 11/19 22:50 Patient arrived in ED. wm 23:35 Triage completed. ke1 23:39 Arm band placed on left wrist. EKG completed in triage. Results shown to MD. ke 11/20 00:00 Inserted saline lock: 20 gauge in left forearm, using aseptic technique. Blood as6 collected. 00:03 CBC with Diff Sent. as6 00:03 CMP Sent. as6 00:03 Lipase Sent. as6 00:30 Ede Shirley MD is Attending Physician. kdr 01:29 Jamila Lazaro RN is Primary Nurse. ke1 01:36 Bed in low position. Call light in reach. ke1 03:43 Abdomen In Process Unspecified. EDMS 07:23 No apparent distress. Awaiting radiology results. jg9 07:54 Attending Physician role handed off by Ede Shirley MD ms3 07:54 Darell Shaw DO is Attending Physician. ms3 08:29 No provider procedures requiring assistance completed. jg9 08:30 IV discontinued. jg9 Administered Medications: 02:53 Drug: Pepcid (famotidine) 20 mg Route: IVP; Site: left antecubital; ke1 03:20 Follow up: Response: Marked relief of symptoms ke1 02:54 Drug: morphine 4 mg Route: IVP; Site: left antecubital; ke1 03:20 Follow up: Response: Marked relief of symptoms ke1 02:54 Drug: Zofran (Ondansetron) 4 mg Route: IVP; Site: left antecubital; ke1 03:20 Follow up: Response: Marked relief of symptoms ke1 Outcome: 04:45 Discharge ordered by . kdr 08:30 Discharged to home ambulatory. jg9 08:30 Condition: stable 08:30 Discharge instructions given to patient, Instructed on discharge instructions, follow up and referral plans. Demonstrated understanding of instructions, follow-up care. 08:32 Patient left the ED. jg9 Signatures: Dispatcher [employer] EDMS Ede Shirley MD MD kdr Sims, Marcus, DO DO ms3 Neli Osorio Ashby, RN RN as6 Nara Gonzales RN RN jg9 Jamila Lazaro RN RN ke1 Corrections: (The following items were deleted from the chart) 01:31 03 23:35 GI: ke1 ke1 11/20 01:35 01:31 Reassessment: see triage ke1 ke1
[2021-11-20 10:29] VITALS: TEMP 97.9
[2021-11-20 10:34] VITALS: BP 122/74; O2SAT 98
--- NOTE | 2021-11-20 15:01 | RAD REPORT ---
EXAM DESCRIPTION: CT - Abdomen Pelvis Wo Contrast - 11/20/2021 6:04 am CLINICAL HISTORY: 56 years, Male, ABD PAIN COMPARISON: None. TECHNIQUE: Multiple transaxial tomograms of the abdomen and pelvis were performed from the lung base s to the symphysis pubis 5 mm slice thickness at 5 mm interval reconstruction, without administration of IV and oral contrast. Multiplanar reformats in the sagittal and coronal plane were generated and reviewed. This exam was performed according to our departmental dose-optimization protocol, which includes auto mated exposure control, adjustment of the mA and/or kV according to patient size and/or use of iterat wanda reconstruction technique. FINDINGS: The lack of IV and oral contrast limits evaluation of solid organs, subtle lesions cannot be excluded. The lung bases demonstrate minimal atelectasis. Grossly the unopacified liver demonstrate marked decreased attenuation and increased in size with que stionable minimal early nodular surface. The gallbladder, pancreas, spleen and adrenal glands demonstrate to be within normal limits, no signi ficant focal lesions were identified. The kidneys demonstrate grossly unremarkable. There is no evidence for nephrolithiasis and/or hydro nephrosis. No focal masses were demonstrated. There is mild prominence of the right calyceal system most likely related to distended urinary bladder. Grossly the unopacified stomach, small bowel and large bowel demonstrate to be within normal limits. There is no evidence for bowel dilatation and/or free air. The appendix is unremarkable. There is a metallic spring coils within the anterior mid abdominal wall corresponding to previous ant erior abdominal wall hernia repair. The urinary bladder demonstrate to be well distended with no gross abnormalities. The prostate gland is unremarkable The aorta demonstrate demonstrate minimal atheromatous plaque formation at the aortic bifurcation-iliac arteries. There is no retroperitoneal lymphadenopathy. There is no evidence fo r ascites. The rest of the soft tissue demonstrate to be grossly unremarkable. IMPRESSION: No evidence for nephrolithiasis and/or hydronephrosis. Markedly decreased attenuation and increased in size of the liver with questionable minimal early nod ular surface surface of the liver suggesting early changes of cirrhosis. Correlate with liver functio n tests. Status post anterior abdominal wall hernia repair. Minimal atheromatous plaque formation at the aortic bifurcation-iliac arteries. Electronically signed by: Tommy Klein MD 11/20/2021 3:59 AM CDT Due to temporary technical issues with the PACS/Fluency reporting system, reports are being signed by the in house radiologists without review as a courtesy to insure prompt reporting. The interpreting radiologist is fully responsible for the content of the report.
--- NOTE | 2021-11-24 08:32 | EKG ---
Test Date: 2021-11-19 Test Time: 22:46:45 Swine Nutritionist: KORINA MEASUREMENT RESULTS: Intervals: Rate: 73 ME: 148 QRSD: 88 QT: 378 QTc: 416 [place]: P: 19 ME: 148 QRS: 19 T: -9 INTERPRETIVE STATEMENTS: Normal sinus rhythm Nonspecific ST abnormality Abnormal ECG No previous ECG available for comparison Electronically Signed On 11-24-21 08:24:02 CDT by Malik Bhatia
== END 2021-11-20 08:32 | disposition home or self-care (01) ==
LOC: ER 22:45
DX: R10.13 Epigastric pain (principal); R11.2 Nausea with vomiting, unspecified; I10 Essential (primary) hypertension; Z88.0 Allergy status to penicillin; Z91.048 Other nonmedicinal substance allergy status
CPT/HCPCS: 93005; 85025; 36415; 80320; 84484; 83690; 80053; 74176; 96375; 96374; 99284; J2405

== ENCOUNTER 2023-01-13 01:08 | Emergency (ER) | payer OTHER, SELFPAY ==
--- OUTSIDE RECORDS SUMMARY | 2023-01-13 01:15 | XMS REPORT | Continuity of Care Document ---
:1965 Author Organization [facility] t Address [address] [place] [address] Care Team Providers Name Role Phone Tarun Arraiza MD Primary Care Physician Tarun Arriaza MD Attending Clinician MAMADOU ELIZALDE Attending Clinician Unavailable Doctor Unassigned, [place] Attending Clinician Unavailable TARUN ARRIAZA Attending Clinician Unavailable Taran Jackson DO Attending Clinician TARAN JACKSON Attending Clinician Unavailable TARAN JACKSON Attending Clinician Unavailable Mayur Schmidt DO Attending Clinician Josey Clay RN Attending Clinician Unavailable Paolo Iglesias Attending Clinician Ayah Mcarthur MD Attending Clinician AYAH MCARTHUR Attending Clinician Unavailable Lab, [facility] Pob I Attending Clinician Unavailable DR ASHWIN REED Attending Clinician Unavailable Ayah Mcarthur MD Admitting Clinician AYAH MCARTHUR Admitting Clinician Unavailable DR ASHWIN REED Admitting Clinician Unavailable Payers Payer Name Policy Type Policy Number Effective Date Expiration Date S ource [facility] [id number] 2020 00:00:00 Problems Condition Condition Condition Status Onset Resolution Last Treating Co mments Source Name Details Category Date Date Treatment Clinician Date Pneumonia Pneumonia Disease Active Uni vers due to due to 2-23 ity of COVID-19 COVID-19 00:00: [place] virus virus 00 Medical Branch Hypoxia Hypoxia Disease Active Univers 2-22 ity of 00:00: [place] 00 Medical Branch Type 2 Type 2 Disease Active Univers diabetes diabetes 04-14 ity of mellitus mellitus [...] of IODIDE 00:00: [place] CONTAINI 00 Medical NG Branch PRODUCTS Iodine Propensi Active Anaphylaxis Uni vers And ty to 04-07 ity of Iodide adverse 00:00: [place] Containi reaction 00 Medica l ng s Branch Products Penicill Propensi Active Unknown - Uni vers in ty to See comments 04-07 ity of adverse 00:00: [place] reaction 00 Medical s Branch Iodine Propensi Active Anaphylaxis Uni vers And ty to 04-07 ity of Iodide adverse 00:00: [place] Containi reaction 00 Medica l ng s Branch Products Social History Social Habit Start Date Stop Date Quantity Comments Source Exposure to Not sure University of SARS-CoV-2 (event) [facility] History of tobacco Current smoker Un iversity of use [facility] Alcohol intake 2020-11-28 2020-11-28 1.71 /d University of 00:00:00 00:00:00 [facility] Tobacco use and 2017-04-13 2017-04-13 Smokeless Universit y of exposure 00:00:00 00:00:00 tobacco non-user [facility] Sex Ass[birth year] [facility] 00:[facility]00 [facility] Smoking Status Start Date Stop Date Source Tobacco smoking [facility] consumption unknown Ex-smoker 2017-04-13 00:00:00 2017-04-13 [facility] o f [place] 00:00:00 Medical Branch Medications Ordered Filled Start Stop Current Ordering Indication Dosage Frequency Signature Comments Components Source Medication Medication Date Date Medication? Clinician (SIG) Name Name METFORMIN 2021-0 Yes [id number] TAKE 1 U nivers ER 500 mg 9-12 TABLET BY ity o f 24 hr 00:00: MOUTH [place] tablet 00 TWICE Medical DAILY Branch METFORMIN 2021-0 Yes [id number] TAKE 1 U nivers ER 500 mg 6-08 TABLET BY ity o f 24 hr 00:00: MOUTH [place] tablet 00 TWICE Medical DAILY Branch METFORMIN 2021-0 2021- No [id number] TAKE 1 Univers ER 500 mg 6-08 09-12 TABLET BY ity of 24 hr 00:00: 00:00 MOUTH [place] tablet 00 :00 TWICE Medical DAILY Branch LISINOPRIL 2021-0 Yes [id number] 5mg TAKE 1 U nivers 5 mg tablet 4-25 TABLET BY ity of 00:00: MOUTH [place] 00 DAILY Medical Branch LISINOPRIL 2-0 Yes [id number] 5mg TAKE 1 U nivers 5 mg tablet 4-25 TABLET BY ity of 00:00: MOUTH [place] 00 DAILY Medical Branch LISINOPRIL 2-0 Yes [id number] 5mg TAKE 1 U nivers 5 mg tablet 4-25 TABLET BY ity of 00:00: MOUTH [place] 00 DAILY Medical Branch fenofibrate 2020-0 Yes [id number] 145mg Take 1 Univers 145 mg 3-23 tablet by ity of tablet 00:00: mouth [place] 00 daily. Medical Branch lisinopriL 2020-0 Yes [id number] 5mg Take 1 U nivers 5 mg tablet 3-23 tablet by ity of 00:00: mouth [place] 00 daily. Medical Branch metformin 2020-0 Yes [id number] 500mg Take 1 Univers ER 500 mg 3-23 tablet by ity o f 24 hr 00:00: mouth 2 [place] tablet 00 (two) Medical times Branch daily. fenofibrate 2021-0 Yes [id number] 145mg Take 1 Univers 145 mg 3-23 tablet by ity of tablet 00:00: mouth [place] 00 daily. Medical Branch lisinopriL Yes [id number] 5mg Take 1 U nivers 5 mg tablet 3-23 tablet by ity of 00:00: mouth [place] 00 daily. Medical Branch metformin 0 Yes [id number] 500mg Take 1 Univers ER 500 mg 3-23 tablet by ity o f 24 hr 00:00: mouth 2 [place] tablet 00 (two) Medical times Branch daily. fenofibrate Yes [id number] 145mg Take 1 Univers 145 mg 3-23 tablet by ity of tablet 00:00: mouth [place] 00 daily. Medical Branch lisinopriL Yes [id number] 5mg Take 1 U nivers 5 mg tablet 3-23 tablet by ity of 00:00: mouth [place] 00 daily. Medical Branch metformin Yes [id number] 500mg Take 1 Univers ER 500 mg 3-23 tablet by ity o f 24 hr 00:00: mouth 2 [place] tablet 00 (two) Medical times Branch daily. fenofibrate Yes [id number] 145mg Take 1 Univers 145 mg 3-23 tablet by ity of tablet 00:00: mouth [place] 00 daily. Medical Branch lisinopriL Yes [id number] 5mg Take 1 U nivers 5 mg tablet 3-23 tablet by ity of 00:00: mouth [place] 00 daily. Medical Branch metformin Yes [id number] 500mg Take 1 Univers ER 500 mg 3-23 tablet by ity o f 24 hr 00:00: mouth 2 [place] tablet 00 (two) Medical times Branch daily. fenofibrate Yes [id number] 145mg Take 1 Univers 145 mg 3-23 tablet by ity of tablet 00:00: mouth [place] 00 daily. Medical Branch lisinopriL Yes [id number] 5mg Take 1 U nivers 5 mg tablet 3-23 tablet by ity of 00:00: mouth [place] 00 daily. Medical Branch metformin Yes [id number] 500mg Take 1 Univers ER 500 mg 3-23 tablet by ity o f 24 hr 00:00: mouth 2 [place] tablet 00 (two) Medical times Branch daily. fenofibrate 2021-0 Yes [id number] 145mg Take 1 Univers 145 mg 3-23 tablet by ity of tablet 00:00: mouth [place] 00 daily. Medical Branch lisinopriL 2020-0 Yes [id number] 5mg Take 1 U nivers 5 mg tablet 3-23 tablet by ity of 00:00: mouth [place] 00 daily. Medical Branch metformin 2020-0 Yes [id number] 500mg Take 1 Univers ER 500 mg 3-23 tablet by ity o f 24 hr 00:00: mouth 2 [place] tablet 00 (two) Medical times Branch daily. fenofibrate 2020-0 Yes [id number] 145mg Take 1 Univers 145 mg 3-23 tablet by ity of tablet 00:00: mouth [place] 00 daily. Medical Branch lisinopriL 2020-0 Yes [id number] 5mg Take 1 U nivers 5 mg tablet 3-23 tablet by ity of 00:00: mouth [place] 00 daily. Medical Branch metformin 0 Yes [id number] 500mg Take 1 Univers ER 500 mg 3-23 tablet by ity o f 24 hr 00:00: mouth 2 [place] tablet 00 (two) Medical times Branch daily. fenofibrate 2020-0 Yes [id number] 145mg Take 1 Univers 145 mg 3-23 tablet by ity of tablet 00:00: mouth [place] 00 daily. Medical Branch lisinopriL 2020-0 Yes [id number] 5mg Take 1 U nivers 5 mg tablet 3-23 tablet by ity of 00:00: mouth [place] 00 daily. Medical Branch metformin 2020-0 Yes [id number] 500mg Take 1 Univers ER 500 mg 3-23 tablet by ity o f 24 hr 00:00: mouth 2 [place] tablet 00 (two) Medical times Branch daily. fenofibrate 2020-0 Yes [id number] 145mg Take 1 Univers 145 mg 3-23 tablet by ity of tablet 00:00: mouth [place] 00 daily. Medical Branch lisinopriL 2020-0 Yes [id number] 5mg Take 1 U nivers 5 mg tablet 3-23 tablet by ity of 00:00: mouth [place] 00 daily. Medical Branch metformin 2020-0 Yes [id number] 500mg Take 1 Univers ER 500 mg 3-23 tablet by ity o f 24 hr 00:00: mouth 2 [place] tablet 00 (two) Medical times Branch daily. fenofibrate Yes [id number] 145mg Take 1 Univers 145 mg 3-23 tablet by ity of tablet 00:00: mouth [place] 00 daily. Medical Branch metformin Yes [id number] 500mg Take 1 Univers ER 500 mg 3-23 tablet by ity o f 24 hr 00:00: mouth 2 [place] tablet 00 (two) Medical times [place] daily. fenofibrate Yes [id number] 145mg Take 1 Univers 145 mg 3-23 tablet by ity of tablet 00:00: mouth [place] 00 daily. Medical Branch fenofibrate Yes [id number] 145mg Take 1 Univers 145 mg 3-23 tablet by ity of tablet 00:00: mouth [place] 00 daily. Medical Branch metformin 2021- No [id number] 500mg Take 1 Univers ER 500 mg 3-23 06-08 tablet by ity of 24 hr 00:00: 00:00 mouth 2 [place] tablet 00 :00 (two) Medical times [place] daily. lisinopriL 2021- No [id number] 5mg Take 1 Univers 5 mg tablet 3-23 04-25 tablet by it y of 00:00: 00:00 mouth [place] 00 :00 daily. Medical Branch [place]-3 Yes Take by Univers Fatty Acids 3-11 mouth 2 ity o f (FISH OIL 00:23: (two) [place] CONCENTRATE 32 times Medical ) 1,000 mg daily. Branch Cap [place]-3 Yes Take by Univers Fatty Acids 3-11 mouth 2 ity o f (FISH OIL 00:23: (two) [place] CONCENTRATE 32 times Medical ) 1,000 mg daily. Branch Cap [place]-3 Yes Take by Univers Fatty Acids 3-11 mouth 2 ity o f (FISH OIL 00:23: (two) [place] CONCENTRATE 32 times Medical ) 1,000 mg daily. Branch Cap [place]-3 Yes Take by Univers Fatty Acids 3-11 mouth 2 ity o f (FISH OIL 00:23: (two) [place] CONCENTRATE 32 times Medical ) 1,000 mg daily. Branch Cap [place]-3 Yes Take by Univers Fatty Acids 3-11 mouth 2 ity o f (FISH OIL 00:23: (two) [place] CONCENTRATE 32 times Medical ) 1,000 mg daily. Branch Cap [place]-3 Yes Take by Univers Fatty Acids 3-11 mouth 2 ity o f (FISH OIL 00:23: (two) [place] CONCENTRATE 32 times Medical ) 1,000 mg daily. Branch Cap [place]-3 Yes Take by Univers Fatty Acids 3-11 mouth 2 ity o f (FISH OIL 00:23: (two) [place] CONCENTRATE 32 times Medical ) 1,000 mg daily. Branch Cap [place]-3 Yes Take by Univers Fatty Acids 3-11 mouth 2 ity o f (FISH OIL 00:23: (two) [place] CONCENTRATE 32 times Medical ) 1,000 mg daily. Branch Cap [place]-3 Yes Take by Univers Fatty Acids 3-11 mouth 2 ity o f (FISH OIL 00:23: (two) [place] CONCENTRATE 32 times Medical ) 1,000 mg daily. Branch Cap [place]-3 Yes Take by Univers Fatty Acids 3-11 mouth 2 ity o f (FISH OIL 00:23: (two) [place] CONCENTRATE 32 times Medical ) 1,000 mg daily. Branch Cap [place]-3 Yes Take by Univers Fatty Acids 3-11 mouth 2 ity o f (FISH OIL 00:23: (two) [place] CONCENTRATE 32 times Medical ) 1,000 mg daily. Branch Cap [place]-3 Yes Take by Univers Fatty Acids 3-11 mouth 2 ity o f (FISH OIL 00:23: (two) [place] CONCENTRATE 32 times Medical ) 1,000 mg daily. Branch Cap [place]-3 Yes Take by Univers Fatty Acids 3-10 mouth 2 ity o f (FISH OIL 18:23: (two) [place] CONCENTRATE 32 times Medical ) 1,000 mg daily. Branch Cap [place]-3 Yes Take by Univers Fatty Acids 3-10 mouth 2 ity o f (FISH OIL 18:23: (two) [place] CONCENTRATE 32 times Medical ) 1,000 mg daily. Branch Cap [place]-3 Yes Take by Univers Fatty Acids 3-10 mouth 2 ity o f (FISH OIL 18:23: (two) [place] CONCENTRATE 32 times Medical ) 1,000 mg daily. Branch Cap dexAMETHaso Yes 4mg 4 mg, Unive rs ne 3-10 Oral, ity of (DECADRON) 15:00: DAILY, [place] tablet 4 mg 00 First dose Me dical on Wed Branch 11/13/20 at 0900, Until Discontinu ed, Routine methylPREDN 2020-0 Yes [id number] Take by Univers ISolone 4 3-10 mouth ity of mg tablets 00:00: SEE-INSTRU [place] 00 CTIONS. Medical follow Branch package directions metoclopram 2020-0 Yes [id number] 5mg Take 1 Univers evgeny HCl 5 3-10 tablet by ity o f mg tablet 00:00: mouth [place] 00 every 8 Medical (eight) Branch hours as needed for Nausea and Vomiting (N/V) or Gastroesop hageal reflux. methylPREDN 2020-0 Yes [id number] Take by Univers ISolone 4 3-10 mouth ity of mg tablets 00:00: SEE-INSTRU [place] 00 CTIONS. Medical follow Branch package directions metoclopram 2020-0 Yes [id number] 5mg Take 1 Univers evgeny HCl 5 3-10 tablet by ity o f mg tablet 00:00: mouth [place] 00 every 8 Medical (eight) Branch hours as needed for Nausea and Vomiting (N/V) or Gastroesop hageal reflux. methylPREDN 2020-0 Yes [id number] Take by Univers ISolone 4 3-10 mouth ity of mg tablets 00:00: SEE-INSTRU [place] 00 CTIONS. Medical follow Branch package directions metoclopram 2020-0 Yes [id number] 5mg Take 1 Univers evgeny HCl 5 3-10 tablet by ity o f mg tablet 00:00: mouth [place] 00 every 8 Medical (eight) Branch hours as needed for Nausea and Vomiting (N/V) or Gastroesop hageal reflux. methylPREDN 2020-0 2020- No [id number] Take by Univers ISolone 4 3-10 03-23 mouth ity of mg tablets 00:00: 00:00 SEE-INSTRU [place] 00 :00 CTIONS. Medical follow Branch package directions metoclopram 2021-0 2020- No [id number] 5mg Take 1 Univers evgeny HCl 5 3-10 03-23 tablet by ity of mg tablet 00:00: 00:00 mouth [place] 00 :00 every 8 Medical (eight) Branch hours as needed for Nausea and Vomiting (N/V) or Gastroesop hageal reflux. methylPREDN 2021-0 2020- No [id number] Take by [facility] ISolone 4 3-10 11-26 mouth [facility] Branch package directions metoclopram 2020- No [id number] 5mg Take 1 Univers evgeny HCl 5 11-13- tablet by ity of mg tablet 00:00: 00:00 mouth [place] 00 :00 every 8 Medical (eight) Branch hours as needed for Nausea and Vomiting (N/V) or Gastroesop hageal reflux. methylPREDN 2020- No [id number] Take by [facility] ISolone 4 -06 08- mouth ity [facility] mg [facility] follow Branch package directions metoclopram 2020- No [id number] 5mg Take 1 Univers evgeny HCl 5 11-13 tablet by ity of mg tablet 00:00: 00:00 mouth [place] 00 :00 every 8 Medical (eight) Branch hours as needed for Nausea and Vomiting (N/V) or Gastroesop hageal reflux. enoxaparin Yes 40mg 40 mg, Unive rs (LOVENOX) 3-09 Subcutaneo ity of injection 14:00: us, Q24H, [place] 40 mg 00 First dose Medical on Branch 11/12/20 at 0800, Until Discontinu ed, Routine insulin NPH Yes 10U 10 Units, U nivers (HUMULIN N) 3-05 Subcutaneo it y of injection 03:00: us, QHS, [place] 10 Units 00 First dose Medic al on [facility] Branch 11/07/20 at 2100, Until Discontinu ed, Routine insulin NPH Yes 20U 20 Units, U nivers (HUMULIN N) 3-04 Subcutaneo it y of injection 19:00: [place], DAILY, [place] 20 Units 00 First dose Medic al on [facility] Branch 11/07/20 at 1300, Until Discontinu ed, Routine metoclopram Yes 10mg 10 mg, Univ ers evgeny HCl 3-01 Slow IV ity of (REGLAN) 05:00: Push, Q8H, [place] injection 00 First dose Medi delores 10 mg on Sun Branch 11/03/20 at 2300, Until Discontinu ed, Routine pantoprazol Yes 40mg 40 mg, IV U nivers e 11-04 Piggyback, ity of (PROTONIX) 05:00: Q12H, [place] 40 mg in 00 First dose Medic al NaCl 0.9% on Sun Branch (NS) 100 mL 11/03/20 at MINI-BAG 2300, Until Discontinu ed, 100 mL baclofen 2020- No 5mg 5 mg, Univers (LIORESAL) 11-04 Oral, BID, it y of tablet 5 mg 05:00: 03:06 3 doses, [place] 00 :00 First dose Medical on Sun Branch 11/03/20 at 2300, [facility] 11/04[facility]20 at 1999, Routine famotidine 2020- No 20mg 20 mg, [facility] ers (PEPCID AC) 11-04 Oral, BID, i ty of tablet 20 02:00: 04:54 First dose [place] mg 00 :12 (after Medical last Branch modificati on) on 11/03/20 at 2000, Until Discontinu ed, Routine maalox:diph Yes 15mL 15 mL, [facility] ers enhydrAMINE 11-03 Oral, ity of :lidocaine 23:29: Q4HPRN, [place] 2 % viscous 23 Starting Medi delores 1:1:1 [place] Branch (FIRST-MOUT 11/03/20 at [facility]) 1729, oral Until suspension Discontinu 15 mL ed, Routine, GERD famotidine 2020- No 20mg 20 mg, [facility] ers (PEPCID AC) 11-02 Oral, ity of tablet 20 02:58: 00:48 BIDPRN, [place] mg 06 :21 Starting Medical Fri Branch 11/01/20 at 2058, Until 11/03/20 at 1848, Routine, Heartburn sodium Yes 1{spray 1 Branch, [facility] ers chloride 10-30 } Nasal, ity of (OCEAN MIST 16:34: PRN, [place] NASAL) 0.65 33 Starting Medi delores % nasal Wed Branch spray 1 10/30/20 at Branch 1034, Until Discontinu ed, Routine, Surgery/Pr ocedure, use as needed for irritation from high flow oxygen furosemide Yes 20mg 20 mg, IV Un colleen (LASIX) 10-30 Push, ity of injection 15:00: DAILY, [place] 20 mg 00 First dose Medical on Wed10/30/20 at 0900, Until Discontinu ed, Routine fenofibrate Yes 134mg 134 mg, Un colleen micronized 10-29 Oral, ity of (LOFIBRA) 15:00: DAILY, [place] capsule 134 00 First dose Me dical mg on Wed10/29/20 at 0900, Until Discontinu ed ergocalcife Yes [id number] 50,000 Un colleen rol 10-29 Units, ity of (vitamin 15:00: Oral, [place] d2) 00 QWEEKLY, Medical (CALCIFEROL First dose Br anch ) capsule on Wed 50,000 10/29/20 at Units 0900, Until Discontinu ed, Routine dexamethaso 2020- No 6mg 6 mg, IV U nivers ne 10-29 0310 Piggyback, ity of (DECADRON 15:00: 00:12 DAILY, [place] PHOSPHATE) 00 :07 First dose Med ical 6 mg in on Wed NaCl 0.9% 10/29/20 at (NS) 50 mL 0900, piggyback Until Discontinu ed, 50 mL enoxaparin 2020- No 40mg 40 mg, Univ ers (LOVENOX) 10-2908 Subcutaneo ity of injection 15:00: 21:57 us, DAILY, [place] 40 mg 00 :50 First dose Medical on Wed10/29/20 at 0900, Until Discontinu ed, Routine lisinopriL 2020- No 5mg 5 mg, Unive rs (PRINIVIL,Z 10-29 Oral, ity of ESTRIL) 15:00: 04:54 DAILY, [place] tablet 5 mg 00 :12 First dose Me dical on Wed10/29/20 at 0900, Until Discontinu ed, Routine zinc Yes 220mg 220 mg, Univers sulfate 10-29 Oral, TID, ity of (ORAZINC) 14:00: First dose [place] capsule 220 00 on [facility] Medica l mg 10/29/20 at Branch 0800, Until Discontinu ed, Routine ascorbic Yes 500mg 500 mg, Unive rs acid 2-23 Oral, BID, ity of (vitamin C) 14:00: First dose [place] (VITAMIN C) 00 on e Medica l tablet 500 10/29/20 at [facility] mg 0800, Until Discontinu ed, Routine Sliding Yes Subcutaneo Univ ers Scale 2-23 us, AC, ity of Insulin-Reg 13:30: First dose [place] ular + Fsbg 00 on e Medica l Testing 10/29/20 at Branch 0730, Until Discontinu ed, Routine temazepam Yes 15mg 15 mg, Univer s (RESTORIL) 10-29 Oral, ity of capsule 15 12:01: QHSPRN, [place] mg [address] [facility] 10/29/20 at 0601, Until Discontinu ed, Routine, Insomnia [place]-3 Yes Take by [facility] Fatty Acids 2- mouth 2 ity o f (FISH OIL 12:01: (two) [place] CONCENTRATE 03 times Medical ) 1,000 mg daily. Branch Cap zolpidem No 5mg 5 mg, Univers (AMBIEN) 2 02-23 Oral, ity of tablet 5 mg 05:33: 12:01 QHSPRN, [place] :38 Starting Medical [facility] 10/28/20 at 2333, Until e 10/29/20 at 0601, Routine, Insomnia benzocaine- 0 Yes 1{lozen 1 Lozenge, [facility] menthoL 223 ge} Oral, ity of (CEPACOL 05:32: Q4HPRN, [place] SORE THROAT 33 Starting Medi delores (AISSATOU-MEN)) [facility] lozenge 1 10/28/20 at Lozenge 2332, Until Discontinu ed, Routine, Sore throat codeine-gua 0 Yes 5mL 5 mL, Unive rs ifenesin 2-23 Oral, ity of (ROBITUSSIN 05:31: Q6HPRN, [place] AC) 10-100 44 Starting Medic al mg/5 mL Mon Branch solution 5 10/28/20 at mL 2331, Until Discontinu ed, Routine, Cough albuterol 0 Yes 2{puff} 2 Puff, Un colleen (VENTOLIN) 2-23 Inhalation ity of inhaler 2 04:22: , Q6HPRN, [place] Puff 50 Starting Medical Mon Branch 10/28/20 at 2222, Until Discontinu ed, Routine, Wheezing, Shortness of Breath, Bronchospa sm, Chest tightness< br>Is this order for a patient with suspected or confirmed COVID-19 infection? Yes glucagon 0 Yes 1mg 1 mg, Univers (GLUCAGEN 223 Intramuscu ity of DIAGNOSTIC 04:21: [place], PRN, [place] KIT) 19 Starting Medical injection 1 Mon Branch mg 10/28/20 at 2220, Until Discontinu ed, DENG, Blood Glucose < or = 70 mg/dL and patient is unable to swallow or has mental changes. dextrose 50 0 Yes 25mL 25 mL, Univ ers % in water 2-23 Slow IV ity of (D50W) 04:21: Push, PRN, [place] injection 19 Starting Medica l 25 mL [facility] Branch 10/28/20 at 2220, Until Discontinu ed, DENG, Blood Glucose < or = 70 mg/dL and patient is unable to swallow or has mental status changes. ondansetron Yes 4mg 4 mg, Slow Univers (ZOFRAN 2-23 IV Push, ity of (PF)) 04:21: Q6HPRN, [place] injection 4 10 Starting Medi delores mg [facility] Branch 10/28/20 at 2220, Until Discontinu ed, Routine, Nausea and Vomiting (N/V) acetaminoph 0 Yes 650mg 650 mg, Un colleen en 2-23 Oral, ity of (TYLENOL) 04:21: Q6HPRN, [place] tablet 650 01 Starting Medic al mg [facility] Branch 10/28/20 at 2220, Until Discontinu ed, Routine, Pain (scale 1-3) lisinopriL Yes [id number] 5mg Take 1 U nivers 5 mg tablet 1-26 tablet by ity of 00:00: mouth [place] 00 daily. [facility] Branch lisinopriL 0 Yes [id number] 5mg Take 1 U nivers 5 mg tablet 1-26 tablet by ity of 00:00: mouth [place] 00 daily. Medical Branch lisinopriL 0 Yes [id number] 5mg Take 1 U nivers 5 mg tablet 1-26 tablet by ity of 00:00: mouth [place] 00 daily. Medical Branch lisinopriL 0 Yes [id number] 5mg Take 1 U nivers 5 mg tablet 1-26 tablet by ity of 00:00: mouth [place] 00 daily. Medical Branch lisinopriL Yes [id number] 5mg Take 1 U nivers 5 mg tablet 1-26 tablet by ity of 00:00: mouth [place] 00 daily. Medical Branch lisinopriL 2020- No [id number] 5mg Take 1 Univers 5 mg tablet 1-29 11- tablet by it y of 00:00: 00:00 mouth [place] 00 :00 daily. Medical Branch lisinopriL 2020- No [id number] 5mg Take 1 Univers 5 mg tablet -29 11- tablet by it y of 00:00: 00:00 mouth [place] 00 :00 daily. Medical Branch lisinopriL 2020- No [id number] 5mg Take 1 Univers 5 mg tablet -29 11- tablet by it y of 00:00: 00:00 mouth [place] 00 :00 daily. Medical Branch fenofibrate 2020-0 Yes [id number] 145mg Take 1 Univers 145 mg 1-23 tablet by ity of tablet 00:00: mouth [place] 00 daily. Medical Branch metformin 2020-0 Yes [id number] 500mg Take 1 Univers ER 500 mg 1-23 tablet by ity o f 24 hr 00:00: mouth 2 [place] tablet 00 (two) Medical times Branch daily. lisinopril 2020-0 Yes [id number] 5mg Take 1 U nivers 5 mg tablet 1-23 tablet by ity of 00:00: mouth [place] 00 daily. Medical Branch fenofibrate 2020-0 Yes [id number] 145mg Take 1 Univers 145 mg 1-23 tablet by ity of tablet 00:00: mouth [place] 00 daily. Medical Branch metformin 2020-0 Yes [id number] 500mg Take 1 Univers ER 500 mg 1-23 tablet by ity o f 24 hr 00:00: mouth 2 [place] tablet 00 (two) Medical times Branch daily. lisinopril 2020-0 Yes [id number] 5mg Take 1 U nivers 5 mg tablet 1-23 tablet by ity of 00:00: mouth [place] 00 daily. Medical Branch fenofibrate 2020-0 Yes [id number] 145mg Take 1 Univers 145 mg 1-23 tablet by ity of tablet 00:00: mouth [place] 00 daily. Medical Branch metformin 2020-0 Yes [id number] 500mg Take 1 Univers ER 500 mg 1-23 tablet by ity o f 24 hr 00:00: mouth 2 [place] tablet 00 (two) Medical times Branch daily. lisinopril 2020-0 Yes [id number] 5mg Take 1 U nivers 5 mg tablet 1-23 tablet by ity of 00:00: mouth [place] 00 daily. Medical Branch fenofibrate 2020-0 Yes [id number] 145mg Take 1 Univers 145 mg 1-23 tablet by ity of tablet 00:00: mouth [place] 00 daily. Medical Branch metformin 2020-0 Yes [id number] 500mg Take 1 Univers ER 500 mg 1-23 tablet by ity o f 24 hr 00:00: mouth 2 [place] tablet 00 (two) Medical times Branch daily. lisinopril 2020-0 Yes [id number] 5mg Take 1 U nivers 5 mg tablet 1-23 tablet by ity of 00:00: mouth [place] 00 daily. Medical Branch fenofibrate 2020-0 Yes [id number] 145mg Take 1 Univers 145 mg 1-23 tablet by ity of tablet 00:00: mouth [place] 00 daily. Medical Branch metformin 2020-0 Yes [id number] 500mg Take 1 Univers ER 500 mg 1-23 tablet by ity o f 24 hr 00:00: mouth 2 [place] tablet 00 (two) Medical times Branch daily. fenofibrate 2020-0 Yes [id number] 145mg Take 1 Univers 145 mg 1-23 tablet by ity of tablet 00:00: mouth [place] 00 daily. Medical Branch metformin 2020-0 Yes [id number] 500mg Take 1 Univers ER 500 mg 1-23 tablet by ity o f 24 hr 00:00: mouth 2 [place] tablet 00 (two) Medical times Branch daily. fenofibrate 2020-0 Yes [id number] 145mg Take 1 Univers 145 mg 1-23 tablet by ity of tablet 00:00: mouth [place] 00 daily. Medical Branch metformin 2020-0 Yes [id number] 500mg Take 1 Univers ER 500 mg 1-23 tablet by ity o f 24 hr 00:00: mouth 2 [place] tablet 00 (two) Medical times Branch daily. fenofibrate 2020-0 Yes [id number] 145mg Take 1 Univers 145 mg 1-23 tablet by ity of tablet 00:00: mouth [place] 00 daily. Medical Branch metformin 2020-0 Yes [id number] 500mg Take 1 Univers ER 500 mg 1-23 tablet by ity o f 24 hr 00:00: mouth 2 [place] tablet 00 (two) Medical times Branch daily. fenofibrate 2020-0 Yes [id number] 145mg Take 1 Univers 145 mg 1-23 tablet by ity of tablet 00:00: mouth [place] 00 daily. Medical Branch metformin 2020-0 Yes [id number] 500mg Take 1 Univers ER 500 mg 1-23 tablet by ity o f 24 hr 00:00: mouth 2 [place] tablet 00 (two) Medical times Branch daily. fenofibrate 2020-0 Yes [id number] 145mg Take 1 Univers 145 mg 1-23 tablet by ity of tablet 00:00: mouth [place] 00 daily. Medical [facility] metformin 2020-0 Yes [id number] 500mg Take 1 Univers ER 500 mg 1-23 tablet by ity o f 24 hr 00:00: mouth 2 [place] tablet 00 (two) Medical times Branch daily. lisinopril 2020-0 Yes [id number] 5mg Take 1 U nivers 5 mg tablet 1-23 tablet by ity of 00:00: mouth [place] 00 daily. Medical Branch fenofibrate 2020-0 Yes [id number] 145mg Take 1 Univers 145 mg 1-23 tablet by ity of tablet 00:00: mouth [place] 00 daily. Medical Branch metformin 2020-0 Yes [id number] 500mg Take 1 Univers ER 500 mg 1-23 tablet by ity o f 24 hr 00:00: mouth 2 [place] tablet 00 (two) Medical times Branch daily. lisinopril 2020-0 Yes [id number] 5mg Take 1 U nivers 5 mg tablet 1-23 tablet by ity of 00:00: mouth [place] 00 daily. Medical Branch fenofibrate 2020-0 2021- No [id number] 145mg Take 1 Univers 145 mg 1-23 03-23 tablet by ity of tablet 00:00: 00:00 mouth [place] 00 :00 daily. Medical Branch metformin 2020- No [id number] 500mg Take 1 Univers ER 500 mg 09-28 tablet by ity of 24 hr 00:00: 00:00 mouth 2 [place] tablet 00 :00 (two) Medical times Branch daily. fenofibrate 2020- No [id number] 145mg Take 1 Univers 145 mg 09-28 tablet by ity of tablet 00:00: 00:00 mouth [place] 00 :00 daily. Medical Branch metformin 2020- No [id number] 500mg Take 1 Univers ER 500 mg 09-28 tablet by ity of 24 hr 00:00: 00:00 mouth 2 [place] tablet 00 :00 (two) Medical times Branch daily. fenofibrate 2020- No [id number] 145mg Take 1 Univers 145 mg 09-28 tablet by ity of tablet 00:00: 00:00 mouth [place] 00 :00 daily. Medical Branch metformin 2020- No [id number] 500mg Take 1 Univers ER 500 mg 09-28 tablet by ity of 24 hr 00:00: 00:00 mouth 2 [place] tablet 00 :00 (two) Medical times Branch daily. lisinopril 2020- No [id number] 5mg Take 1 Univers 5 mg tablet 09-28 tablet by it y of 00:00: 00:00 mouth [place] 00 :00 daily. Medical Branch [place]-3 2019-0 Yes Take by Univers Fatty Acids 7-11 mouth 2 ity o f (FISH OIL 13:37: (two) [place] CONCENTRATE 44 times Medical ) 1,000 mg daily. Branch Cap [place]-3 2019-0 Yes Take by Univers Fatty Acids 7-11 mouth 2 ity o f (FISH OIL 13:37: (two) [place] CONCENTRATE 44 times Medical ) 1,000 mg daily. Branch Cap [place]-3 2019-0 Yes Take by Univers Fatty Acids 7-11 mouth 2 ity o f (FISH OIL 13:37: (two) [place] CONCENTRATE 44 times Medical ) 1,000 mg daily. Branch Cap [place]-3 2019-0 Yes Take by Univers Fatty Acids 7-11 mouth 2 ity o f (FISH OIL 13:37: (two) [place] CONCENTRATE 44 times Medical ) 1,000 mg daily. [facility] [place]-3 Yes Take by Univers Fatty Acids 7-11 mouth 2 ity o f (FISH OIL 13:37: (two) [place] CONCENTRATE 44 times Medical ) 1,000 mg daily. Branch Cap [place]-3 Yes Take by Univers Fatty Acids 7-11 mouth 2 ity o f (FISH OIL 13:37: (two) [place] CONCENTRATE 44 times Medical ) 1,000 mg daily. Branch Cap [place]-3 Yes Take by Univers Fatty Acids 7-11 mouth 2 ity o f (FISH OIL 13:37: (two) [place] CONCENTRATE 44 times Medical ) 1,000 mg daily. Branch Cap [place]-3 Yes Take by Univers Fatty Acids 7-11 mouth 2 ity o f (FISH OIL 13:37: (two) [place] CONCENTRATE 44 times Medical ) 1,000 mg daily. [facility] LISINOPRIL Yes [id number] 5mg TAKE 1 U nivers 5 mg tablet 2-01 TABLET BY ity of 00:00: MOUTH [place] 00 DAILY. [facility] LISINOPRIL 2020- No [id number] 5mg TAKE 1 Univers 5 mg tablet 209-28 TABLET BY it y of 00:00: 00:00 MOUTH [place] 00 :00 DAILY. [facility] LISINOPRIL 2020- No [id number] 5mg TAKE 1 Univers 5 mg tablet 10-07 TABLET BY it y of 00:00: 00:00 MOUTH [place] 00 :00 DAILY. [facility] LISINOPRIL 2020- No [id number] 5mg TAKE 1 Univers 5 mg tablet 10-07 TABLET BY it y of 00:00: 00:00 MOUTH [place] 00 :00 DAILY. [facility] LISINOPRIL 2020- No [id number] 5mg TAKE 1 Univers 5 mg tablet 10-07 TABLET BY it y of 00:00: 00:00 MOUTH [place] 00 :00 DAILY. [facility] METFORMIN 2017-09 Yes [id number] TAKE 1 U nivers ER 500 mg 0-04 TABLET BY ity o f 24 hr 00:00: MOUTH [place] tablet 00 TWICE A Medical DAY Branch METFORMIN 2017-09 2020- No [id number] TAKE 1 Univers ER 500 mg 0-04 -23 TABLET BY ity of 24 hr 00:00: 00:00 MOUTH [place] tablet 00 :00 TWICE A Medical DAY Branch METFORMIN 2017-09- No [id number] TAKE 1 Univers ER 500 mg 0-04 01-23 TABLET BY ity of 24 hr 00:00: 00:00 MOUTH [place] tablet 00 :00 TWICE A Medical DAY Branch METFORMIN 2017-2019- No [id number] TAKE 1 Univers ER 500 mg 0-04 01-23 TABLET BY ity of 24 hr 00:00: 00:00 MOUTH [place] tablet 00 :00 TWICE A Medical DAY Branch METFORMIN 2017-09- No [id number] TAKE 1 Univers ER 500 mg 0-04 01-23 TABLET BY ity of 24 hr 00:00: 00:00 MOUTH [place] tablet 00 :00 TWICE A Medical DAY Branch fenofibrate Yes [id number] 145mg Take 1 [facility] 145 mg 8-30 tablet by ity of tablet 00:00: mouth [place] 00 daily. Medical Branch fenofibrate 2020- No [id number] 145mg Take 1 [facility] 145 mg 8-30 01-23 tablet by ity of tablet 00:00: 00:00 mouth [place] 00 :00 daily. Medical Branch fenofibrate 2020- No [id number] 145mg Take 1 [facility] 145 mg 8-30 01-23 tablet by ity of tablet 00:00: 00:00 mouth [place] 00 :00 daily. Medical Branch fenofibrate 2020- No [id number] 145mg Take 1 [facility] 145 mg 8-30 01-23 tablet by ity of tablet 00:00: 00:00 mouth [place] 00 :00 daily. Medical Branch fenofibrate 2020- No [id number] 145mg Take 1 [facility] 145 mg 8-30 01-23 tablet by ity of tablet 00:00: 00:00 mouth [place] 00 :00 daily. Medical Branch Vital Signs Vital Name Observation Time Observation Value Comments Source Systolic blood 2020-12-10 18:55:00 144 mm[Hg] Univer sity of pressure [facility] Diastolic blood 2020-12-10 18:55:00 83 mm[Hg] Unive rsity of [facility] Heart rate 2020-12-10 18:55:00 72 /min [facility] Body height 2020-12-10 18:55:00 177.8 cm [facility] Body weight 2020-12-10 18:55:00 81.647 kg Universi ty of [place] [facility] BMI 2020-12-10 18:55:00 25.83 kg/m2 Universi ty of [place] [facility] Oxygen saturation in 2020-12-10 18:55:00 94 /min University of Arterial blood by [facility] Pulse oximetry Branch Systolic blood 2020-11-28 19:09:00 128 mm[Hg] Univer sity of pressure [place] [facility] Diastolic blood 2020-11-28 19:09:00 82 mm[Hg] Unive rsity of pressure [place] [facility] Heart rate 2020-11-28 19:09:00 106 /min Universi ty of [place] [facility] Respiratory rate 2020-11-28 19:09:00 19 /min Univ ersity of [place] [facility] Body height 2020-11-28 19:09:00 177.8 cm Universi ty of [place] [facility] Body weight 2020-11-28 19:09:00 78.79 kg Universi ty of [place] [facility] BMI 2020-11-28 19:09:00 24.92 kg/m2 [facility]i ty of [place] [facility] Oxygen saturation in 2020-11-28 19:09:00 93 /min University of Arterial blood by [facility] Pulse oximetry Branch Systolic blood 2020-11-26 15:31:00 121 mm[Hg] Univer sity of pressure [place] [facility] Diastolic blood 2020-11-26 15:31:00 73 mm[Hg] Unive rsity of pressure [place] [facility] Heart rate 2020-11-26 15:31:00 80 /min Universi ty of [place] [facility] Body temperature 2020-11-26 15:31:00 36.83 Jenny Univ ersity of [place] [facility] Body weight 2020-11-26 15:31:00 77.565 kg Universi ty of [place] [facility] BMI 2020-11-26 15:31:00 24.54 kg/m2 Universi ty of [place] [facility] Oxygen saturation in 2020-11-26 15:31:00 89 /min University of Arterial blood by [facility] Pulse oximetry Branch Body temperature 2020-11-13 22:12:00 36.61 Jenny Univ ersity of [place] [facility] Systolic blood 2020-11-13 18:21:00 116 mm[Hg] Univer sity of pressure [facility] Diastolic blood 2020-11-13 18:21:00 64 mm[Hg] Unive rsity of pressure [facility] Respiratory rate 2020-11-13 18:21:00 18 /min Univ [facility] Oxygen saturation in 2020-11-13 18:21:00 90 /min [facility] Arterial blood by [facility] Pulse oximetry Branch Heart rate 2020-11-13 14:00:00 49 /min Universi ty of [place] [facility] Body weight 2020-11-03 10:00:00 80.967 kg Universi ty [facility] BMI 2020-11-03 10:00:00 25.61 kg/m2 Universi ty [facility] Body height 2020-10-29 04:20:00 177.8 cm Universi ty [facility] Systolic blood 2019-09-28 15:41:00 119 mm[Hg] Univer sity of [facility] Diastolic blood 2019-09-28 15:41:00 70 mm[Hg] Unive rsity of [facility] Heart rate 2019-09-28 15:41:00 69 /min Universi ty [facility] Body temperature 2019-09-28 15:41:[address] [facility] Res[facility] rate 2019-09-28 15:41:00 18 /min [facility] Body height 2019-09-28 15:41:00 177.8 cm Universi ty [facility] Body weight 2019-09-28 15:41:00 91.627 kg Universi ty [facility] BMI 2019-09-28 15:41:00 28.98 kg/m2 [facility] Procedures Procedure Date / Time Performing Clinician Source Performed DISCLOSURE AND CONSENT, 2020-12-11 05:01:00 Doctor Unassigned, [facility] MEDICAL AND SURGICAL [facility] [place] [facility] PROCEDURES POCT GLUCOSE (AUTOMATED) 2020-11-13 22:10:00 Ayah Mcarthur [facility] BASIC METABOLIC PANEL 2020-11-13 12:32:00 Lucy Kaur [facility] (NA, K, CL, CO2, GLUCOSE, Medica l Branch BUN, CREATININE, CA) CBC WITH DIFF 2020-11-13 10:59:00 Vincent [facility] POCT GLUCOSE (AUTOMATED) 2020-11-13 02:54:00 Edionwe, Bhargaviy Uni versity of [place] [facility] POCT GLUCOSE (AUTOMATED) 2020-11-12 22:30:00 Edionwe, Mercy Uni versity of [facility] [place] [facility] POCT GLUCOSE (AUTOMATED) 2020-11-12 17:51:00 Edionwe, [facility] Uni versity of [facility] [place] [facility] POCT GLUCOSE (AUTOMATED) 2020-11-12 13:19:00 Edionwe, [facility] Uni versity of [facility] [place] [facility] POCT GLUCOSE (AUTOMATED) 2020-11-12 02:12:00 Edionwe, [facility] Uni versity of [place] [facility] POCT GLUCOSE (AUTOMATED) 2020-11-11 23:11:00 Edionwe, [facility] Uni versity of [place] [facility] POCT GLUCOSE (AUTOMATED) 2020-11-11 17:36:00 Edionwe, [facility] Uni versity of [place] [facility] POCT GLUCOSE (AUTOMATED) 2020-11-11 13:27:00 Edionwe, [facility] Uni versity of [place] [facility] BASIC METABOLIC PANEL 2020-11-11 11:06:00 Mayra Kaurecca [facility] (NA, K, CL, CO2, GLUCOSE, Medica l Branch BUN, CREATININE, CA) CBC WITH DIFF 2020-11-11 11:06:00 Vincent [facility] POCT GLUCOSE (AUTOMATED) 2020-11-11 01:32:00 Edionwe, Bhargaviy Uni versity of [place] [facility] POCT GLUCOSE (AUTOMATED) 2020-11-10 21:23:00 Edionwe, [facility] Uni versity of [place] [facility] POCT GLUCOSE (AUTOMATED) 2020-11-10 13:35:00 Edionwe, [facility] Uni versity of [facility] [place] [facility] POCT GLUCOSE (AUTOMATED) 2020-11-10 01:30:00 Edionwe, [facility] Uni versity of [facility] [place] [facility] POCT GLUCOSE (AUTOMATED) 2020-11-09 22:14:00 Edionwe, [facility] Uni versity of [facility] [place] [facility] POCT GLUCOSE (AUTOMATED) 2020-11-09 18:00:00 EdionweAyah versity [facility] POCT GLUCOSE (AUTOMATED) 2020-11-09 14:31:00 [facility] MET[facility]OLIC PANEL 2020-11-09 10:46:00 Lucy Kaur [facility] (NA, K, CL, CO2, GLUCOSE, Medica l Branch BUN, CREATININE, CA) CBC WITH DIFF 2020-11-09 10:46:00 Lucy Kaur [facility] POCT GLUCOSE (AUTOMATED) 2020-11-09 02:11:00 EdionweAyah Uni versity of [place] [facility] POCT GLUCOSE (AUTOMATED) 2020-11-08 22:26:00 EdionweAyah Zoom versity of [facility] POCT GLUCOSE (AUTOMATED) 2020-11-08 17:33:00 EdsitaweAyah Uni versity of [place] [facility] POCT GLUCOSE (AUTOMATED) 2020-11-08 14:23:00 EdionweAyah Zoom versity of [facility] POCT GLUCOSE (AUTOMATED) 2020-11-08 02:13:00 EdionweAyah Zoom versity of [facility] POCT GLUCOSE (AUTOMATED) 2020-11-07 22:04:00 EdionweAyah Zoom versity of [facility] POCT GLUCOSE (AUTOMATED) 2020-11-07 17:44:00 EdsitaweAyah Zoom versity of [facility] POCT GLUCOSE (AUTOMATED) 2020-11-07 13:41:00 Lyubov Ayah Zoom [facility] COMP. METABOLIC PANEL 2020-11-07 10:43:00 Shmuel Manuel [facility] ([id number]) Medical Branch CBC WITH DIFF 2020-11-07 10:43:00 Shmuel Manuel [facility] GLYCOSYLATED HEMOGLOBIN 2020-11-07 10:43:00 Shmuel Manuel [facility] (A1C) [facility] Branch PROCALCITONIN 2020-11-07 10:43:00 Shmuel Manuel [facility] POCT GLUCOSE (AUTOMATED) 2020-11-07 06:26:00 Edaaliyah Ayah Zoom versity of [place] [facility] POCT GLUCOSE (AUTOMATED) 2020-11-07 02:04:00 Edionwe, [facility] Uni versity of [place] [facility] POCT GLUCOSE (AUTOMATED) 2020-11-06 21:59:00 Edionwe, [facility] Uni versity of [place] [facility] POCT GLUCOSE (AUTOMATED) 2020-11-06 17:33:00 Edionwe, [facility] Uni vers[facility] of [place] [facility] POCT GLUCOSE (AUTOMATED) 2020-11-06 13:58:00 Edionwe, [facility] vers[facility] [place] [facility] POCT GLUCOSE (AUTOMATED) 2020-11-06 05:56:00 Edionwe, [facility] Uni vers[facility] of [place] [facility] POCT GLUCOSE (AUTOMATED) 2020-11-06 01:57:00 Edionwe, [facility] Uni versity [facility] [place] [facility] POCT GLUCOSE (AUTOMATED) 2020-11-05 22:15:00 Edionwe, [facility] vers[facility] [place] [facility] POCT GLUCOSE (AUTOMATED) 2020-11-05 17:20:00 Edionwe, [facility] vers[facility] [place] [facility] POCT GLUCOSE (AUTOMATED) 2020-11-05 13:25:00 Edionwe, [facility] vers[facility] [place] [facility] POCT GLUCOSE (AUTOMATED) 2020-11-05 12:16:00 Edionwe, [facility] Uni versity [facility] [place] [facility] POCT GLUCOSE (AUTOMATED) 2020-11-05 05:24:00 Edionwe, [facility] Uni vers[facility] [place] [facility] POCT GLUCOSE (AUTOMATED) 2020-11-04 22:38:00 Edionwe, [facility] vers[facility] [place] [facility] POCT GLUCOSE (AUTOMATED) 2020-11-04 18:09:00 Edionwe, [facility] vers[facility] [place] [facility] POCT GLUCOSE (AUTOMATED) 2020-11-04 14:07:00 Edionwe, [facility] vers[facility] [place] [facility] POCT GLUCOSE (AUTOMATED) 2020-11-04 01:45:00 Edionwe, [facility] vers[facility] [place] [facility] POCT GLUCOSE (AUTOMATED) 2020-11-03 21:49:00 Edionwe, [facility] vers[facility] [place] [facility] POCT GLUCOSE (AUTOMATED) 2020-11-03 17:35:00 Edionwe, [facility] Uni versity of [facility] POCT GLUCOSE (AUTOMATED) 2020-11-03 13:38:00 EdBhargavi fischery Uni versity of [facility] COMP. METABOLIC PANEL 2020-11-03 10:40:00 Shmuel Manuel [facility] ([id number]) Medical Branch CBC WITH DIFF 2020-11-03 10:40:00 Shmuel Manuel [place] o f [facility] POCT GLUCOSE (AUTOMATED) 2020-11-03 04:06:00 Edionnamita, [facility] Uni versity of [place] [facility] POCT GLUCOSE (AUTOMATED) 2020-11-02 21:29:00 Edionwe, [facility] Uni versity of [place] [facility] POCT GLUCOSE (AUTOMATED) 2020-11-02 17:57:00 Edaaliyah, Bhargaviy Uni versity of [place] [facility] POCT GLUCOSE (AUTOMATED) 2020-11-02 14:03:00 EdionBhargavi breauxy Uni versity of [place] [facility] POCT GLUCOSE (AUTOMATED) 2020-11-01 17:45:00 EdBhargavi fischery Uni versity of [place] [facility] POCT GLUCOSE (AUTOMATED) 2020-11-01 14:25:00 EdBhargavi fischery Uni versity of [place] [facility] THYROID STIMULATING 2020-11-01 10:26:00 Shmuel Manuel [facility] N-TERMINAL PRO-BNP 2020-11-01 10:26:00 [facility] 2020-11-01 10:25:00 EdBhargavi fischery Uni versity of [place] [facility] POCT GLUCOSE (AUTOMATED) 2020-11-01 04:33:00 Edionwe, [facility] Uni versity of [place] [facility] POCT GLUCOSE (AUTOMATED) 2020-11-01 02:14:00 Edionwe, [facility] Uni versity of [place] [facility] POCT GLUCOSE (AUTOMATED) 2020-10-31 22:48:00 Edionwe, [facility] Uni versity of [facility] POCT GLUCOSE (AUTOMATED) 2020-10-31 17:56:00 Edionwe, [facility] Uni versity of [place] [facility] POCT GLUCOSE (AUTOMATED) 2020-10-31 13:47:00 EdBhargavi [facility]ischervania [facility] TROPONIN I 2020-10-31 10:48:00 Lyubov [facility] COMP. METABOLIC PANEL 2020-10-31 10:48:00 Lyubov [facility] ([id number]) [facility] DIFF CONSULT 2020-10-31 10:48:00 Shmuel Manuel [facility] INTERPRETATION [facility] CBC WITH DIFF 2020-10-31 10:48:00 Lyubov [facility] N-TERMINAL PRO-BNP 2020-10-31 10:48:00 Lucy Kaur [facility] POCT GLUCOSE (AUTOMATED) 2020-10-30 23:09:00 Lyubov [facility] POCT GLUCOSE (AUTOMATED) 2020-10-30 17:34:00 Lyubov [facility] PREPARE PLASMA 2020-10-30 16:47:36 Kaiden Echeverria [facility] POCT GLUCOSE (AUTOMATED) 2020-10-30 14:27:00 Lyubov [facility] FERRITIN SERUM 2020-10-30 10:13:00 Lyubov [facility] TRANSFERRIN 2020-10-30 10:13:00 Lyubov [facility] VITAMIN B12, LEVEL 2020-10-30 10:13:[address] [facility] FOLATE 2020-10-30 10:13:00 Lyubov [facility] TOTAL IRON BINDING 2020-10-30 10:13:00 Lyubov [facility] CAPACITY [facility] TROPONIN I 2020-10-30 10:13:00 Lyubov [facility] COMP. METABOLIC PANEL 2020-10-30 10:13:00 Lyubov [facility] ([id number]) [facility] IRON PANEL 2020-10-30 10:13:00 Lyubov [facility] CBC WITH DIFF 2020-10-30 10:13[facility] 2020-10-30 10:13:00 Lucy Kaur [facility] ABORH CONFIRMATION 2020-10-30 06:15:00 Paolo Ayala [facility] HB ABO GROUPING 2020-10-30 04:30:00 Kaiden Echeverria [facility] PNEUMOCOCCAL ANTIGEN 2020-10-29 23:09:00 Lyubov [facility] LEGIONELLA URINARY 2020-10-29 23:08:00 Lyubov [facility] ANTIGEN [facility] POCT GLUCOSE (AUTOMATED) 2020-10-29 23:01:[facility]ATED) 2020-10-29 18:28:00 [facility] PO[facility]SE (AUTOMATED) 2020-10-29 13:55:00 [facility] TROPONIN I 2020-10-29 10:47:00 Lyubov [facility] COMP. METABOLIC PANEL 2020-10-29 10:47:00 Lyubov [facility] ([id number]) [facility] CBC WITH DIFF 2020-10-29 10:47:00 Lyubov [facility] PROCALCITONIN 2020-10-29 10:47:00 [facility] 1 VW 2020-10-29 03:11:52 Paolo Ayala [facility] URINALYSIS 2020-10-29 01:24:00 Paolo Ayala [facility] TROPONIN I 2020-10-29 01:17:00 Paolo Ayala [facility] COMP. METABOLIC PANEL 2020-10-29 01:17:00 Paolo Ayala [facility] ([id number]) [facility] CBC WITH DIFF 2020-10-29 01:17:00 Paolo Ayala [facility] D-DIMER 2020-10-29 01:17:00 Paolo Ayala [place] [facility] N-TERMINAL PRO-BNP 2020-10-29 01:17:00 Paolo Ayala [facility] COVID-19 (ID NOW RAPID 2020-10-29 01:17:00 Paolo Ayala [facility] TESTING) Medical Branch LAB ONLY COVID 2020-10-29 01:17:00 Paolo Ayala [place] [facility] [place] INTERPRETATION [facility] Branch HB ECG ROUTINE & RHYTHM 2020-10-29 00:51:47 Paolo Ayala [facility] Branch NOTICE OF PRIVACY 2020-10-29 00:35:53 Doctor Unassigned, [facility] PRACTICES [facility] CONSENT/REFUSAL FOR 2020-10-29 00:34:40 Doctor Everardo, [facility] DIAGNOSIS AND TREATMENT [facility] MEDICAL RELEASE/CLEARANCE 2020-07-25 06:01:00 Doctor Unamargarita, [facility] FORMS [facility] COMP. METABOLIC PANEL 2019-09-29 13:52:00 Tarun Arriaza [facility] ([id number]) [facility] LIPID PANEL ([id number])(TOTAL 2019-09-29 13:52:00 Tarun Arriaza [facility] CHOLESTEROL, [facility] TRIGLYCERIDES, HDL) CBC WITH DIFFERENTIAL 2019-09-29 13:52:00 Tarun [facility]aza [facility] ASSIGNMENT OF BENEFITS 2019-09-28 15:29:27 Doctor Unamargarita, [facility] POCT HEMOGLOBIN A1C TEST 2019-09-28 00:00:00 Tarun Arriaza [facility] Plan of Care Planned Activity Planned Date Details Comments Source Future Scheduled 2022-12-10 COVID-19 VACCINE (#1) [facility] Test 07:53:29 [code = COVID-19 VACCINE (#1)] Future Scheduled 2022-12-10 COLONOSCOPY SCREENING [facility] Test 07:53:29 [code = COLONOSCOPY SCREENING] Future Scheduled 2022-12-10 SHINGLES VACCINES (1 Met [facility] Test 07:53:29 of 2) [code = SHINGLES VACCINES (1 of 2)] Future Scheduled 2022-12-10 INFLUENZA VACCINE Method [facility] Test 07:53:29 [code = INFLUENZA VACCINE] Future Scheduled 2021-07-16 COVID-19 VACCINE (1) Met [facility] Test 08:32:11 [code = COVID-19 VACCINE (1)] Future Scheduled 2021-07-16 COLONOSCOPY SCREENING [facility] Test 08:32:11 [code = COLONOSCOPY SCREENING] Future Scheduled 2021-07-16 SHINGLES VACCINES Method [facility] Test 08:32:11 (#1) [code = SHINGLES VACCINES (#1)] Future Scheduled 2021-07-16 INFLUENZA VACCINE Method [facility] Test 08:32:11 [code = INFLUENZA VACCINE] Encounters Start End Encounter Admission Attending Care Care Encounter Source Date/Time Date/Time Type Type Clinicians Facility Department ID 2022-05-17 2022-05-17 [facility] [id number] Univers 00:00:00 00:00:00 [facility] [id number] it y of [place] [id number] Michael as GREGORIO?BLEA [id number] [address] OFFICE BUILDING 2022-02-11 2022-02-11 [facility] [id number] Univers 00:00:00 00:00:00 [facility] [id number] it y of [place] [id number] Michael as GREGORIO?BLEA [id number] [address] [address] OFFICE BUILDING 2021-12-29 2021-12-29 [facility] 1.2.840.114 [id number] Univers 00:00:00 00:00:00 [facility] 350.1.13.10 it y of [place] 4.2.7.2.686 Michael as PROFESSIO [phone] [address] OFFICE BUILDING ONE 2020-12-18 2020-12-18 Outpatient R TONIO [facility] [id number] Univers 14:00:00 14:00:00 MAMADOU baldwin [facility] 2020-12-11 2020-12-11 Orders Doctor ARACELY 1.2.840.114 [id number] Univers 00:00:00 00:00:00 Only Unassigned, ARTI 350.1.13.10 [facility] 4.2.7.2.686 Michael as [phone] [address] 2020-12-10 2020-12-10 Office [facility] 1.2.840.114 [id number] Univers 13:39:31 14:09:31 Visit [facility] 350.1.13.10 it y of [place] 4.2.7.2.686 Michael as Professio [phone] [facility] 044 [facility] [place] [place] 2020-12-10 2020-12-10 Outpatient R [facility] [id number] Univers 14:00:00 14:00:00 TARUN ity of [facility] 2020-12-06 2020-12-06 Telephone [facility] 1.2.840.114 [id number] Univers 00:00:00 00:00:00 [facility] 350.1.13.10 it y of [place] 4.2.7.2.686 Michael as Professio [phone] [facility] 044 [facility] [place] 2020-11-28 2020-11-28 Office [facility] 1.2.840.114 [id number] Univers 13:58:07 14:42:11 Visit Taran Vera 350.1.13.10 i [place] [phone] [facility] 085 [facility] 2020-11-28 2020-11-28 Outpatient R TARAN JACKSON [facility] 10 [id number] Univers 13:40:00 13:40:00 TARAN JACKSON i ty of [facility] 2020-11-26 2020-11-26 Office [facility] 1.2.840.114 [id number] Univers 10:23:25 10:45:46 Visit [facility] 350.1.13.10 it y of [place] 4.2.7.2.686 Michael as Professio [phone] Ak dical nal [address] Office Building One 2020-11-26 2020-11-26 Outpatient R SOFIYA [facility] [id number] Univers 10:15:00 10:15:00 TARUN baldwin [facility] 2020-11-26 2020-11-26 Patient Brayan [facility] 1.2.840.114 [id number] Univers 00:00:00 00:00:00 Outreach Mayur MUKUL 350.1.13.10 i ty of [place] [facility] [place]2.7.2.[place] [phone] Ak dicar [address] 2020-11-14 2020-11-14 Transition Delicia Clay 1.2.840.114 [id number] Univers 00:00:00 00:00:00 of Care Josey Balbuena 350.1.13.10 [place] [phone] [facility] [address] 2020-10-28 2020-11-13 [facility] 1.2.840.1 14 [id number] Univers 18:43:00 18:23:00 Encounter Ayah Mcarthur 350.1.13.10 ity of [place] [phone] [facility] [address] [place] 2020-10-28 2020-11-13 Inpatient X LYUBOV [facility] [id number] Univers 18:43:00 18:23:00 AYAH nicolasa [facility] 2020-11-05 2020-11-05 [facility] 1.2.840.114 [id number] Univers 00:00:00 00:00:00 Tarun [facility] 350.1.13.10 it y of [place] 4.2.7.2.686 Michael as Professio [phone] Ak dicar nal [address] [place] Office Building One 2020-10-01 2020-10-01 [facility] 1.2.840.114 [id number] Univers 00:00:00 00:00:00 Tarun [facility] 350.1.13.10 it y of [place] 4.2.7.2.686 Michael as Professio [phone] [address] Office [facility] One 2020-07-25 2020-07-25 Orders Doctor ARACELY 1.2.840.114 [id number] Univers 00:00:00 00:00:00 Only Unassigned, ARTI 350.1.13.10 ity of [place] [facility] 4.2.7.2.686 Michael as [phone] [address] 2019-12-28 2019-12-28 Outpatient R SOFIYA [facility] [id number] Univers 08:15:00 08:15:00 TARUN ity [facility] 2019-09-29 2019-09-29 [facility] [facility] [employer] [facility], [facility] Fam Pob I [facility] 1.2. 840.114 [id number] Univers 07:48:46 08:03:17 Visit RaymondheribertonahunTarun [facility] 350.1.13 .10 ity of [place] 4.2.7.2.686 Michael as Professio [phone] [address] Office [facility] One 2019-09-28 2019-09-28 Office [facility] 1.2.840.114 [id number] Univers 09:30:26 11:11:17 Visit Tarun [facility] 350.1.13.10 it y of [place] 4.2.7.2.686 Michael as Professio [phone] [address] Office [facility] One 2019-09-28 2019-09-28 Orders Doctor ARACELY 1.2.840.114 [id number] Univers 00:00:00 00:00:00 Only Unassigned, ARTI 350.1.13.10 ity of [place] [facility] 4.2.7.2.686 Michael as [phone] [address] 2016-10-19 2016-10-19 Outpatient C BRIANNA [facility] [id number] [place] 05:10:00 09:30:00 [facility] 2016-08-17 2016-08-17 Outpatient C BRIANNA [facility] [id number] [place] 05:14:00 08:30:00 [facility] Results Test Description Test Time Test Comments Results Result Comments Source POCT GLUCOSE (AUTOMATED) 2020-11-13 22:19:50 Test Item Value Reference Range Interpretation Comme nts POCT GLU (test code = 5746676374) 266 mg/dL 70-110 H Lab Interpretation (test code = 03259-6) Abnormal [facility] METABOLIC PANEL (NA, K, CL, CO2, GLUCOSE, BUN, CREATININE, CA)2020-11-13 14:03:57 Test Item Value Reference Range Interpretation Comments NA (test code = 129 mmol/L 135-145 L 3752007434) K (test code = 5.1 mmol/L 3.5-5.0 H 2384816206) CL (test code = 98 mmol/L 98-108 3812953285) CO2 TOTAL (test code = 25 mmol/L 23-31 6451063097) AGAP (test code = 2-16 6191433877) BUN (test code = 21 mg/dL 7-23 5421380500) GLUCOSE (test code = 258 mg/dL 70-110 H 8592413689) CREATININE (test code = 0.55 mg/dL 0.60-1.25 L 8728645183) CALCIUM (test code = 8.1 mg/dL 8.6-10.6 L 4292119417) eGFR Calculation mL/min/1.73m2 (Non-) (test code = 8614576332) eGFR Calculation mL/min/1.73m2 () (test code = 4701625704) MAGDA (test code = MAGDA) Association of [...] tests). Lab Interpretation Abnormal (test code = 63479-5) [facility] WITH [id number] 11:57:04 Test Item Value Reference Range Interpretation [...] RDW-SD (test code = 39.9 fL 38.5-51.6 68804-0) RDW-CV (test code = 13.8 % 12.1-15.4 788-0) PLT (test code = See_Comment [Automated 777-3) message] The sy stem which generated this result transmitted reference range : 150 - 328 10*3/ ?L. The reference r jaime was not used to interpret this result as normal/abnormal . MPV (test code = 11.8 fL 9.8-13.0 04522-9) NRBC/100 WBC (test See_Comment [Automat ed code = 1249533951) message] The system which generated this result transmitted reference range : 0.0 - 10.0 /100 WBCs. The refer ence range was not u sed to interpret th is result as normal/abnormal . NRBC x10^3 (test code <0.01 See_Comment [Auto mated = 3915409927) message] The s ystem which generated this result transmitted reference range : 10*3/?L. The reference range was not used to interpret this result as normal/abnormal . GRAN MAT (NEUT) % 78.0 % (test code = 770-8) IMM GRAN % (test code 0.50 % = 1659392246) LYMPH % (test code = 13.6 % 736-9) MONO % (test code = 7.6 % 5905-5) EOS % (test code = 0.0 % 713-8) BASO % (test code = 0.3 % 706-2) GRAN MAT x10^3(ANC) 2.97 10*3/uL 1.99-6.95 (test code = 5692692849) IMM GRAN x10^3 (test <0.03 0.00-0.06 code = 3677882809) LYMPH x10^3 (test code 0.52 10*3/uL 1.09-3.23 L = 731-0) MONO x10^3 (test code 0.29 10*3/uL 0.36-1.02 L = 742-7) EOS x10^3 (test code = <0.03 0.06-0.53 L 711-2) BASO x10^3 (test code <0.03 0.01-0.09 = 704-7) Lab Interpretation Abnormal (test code = 16872-0) [facility] 03:29:07 Test Item Value Reference Range Interpretation Comments POCT GLU (test code = 4142521992) 231 mg/dL 70-110 H Lab Interpretation (test code = Abnormal 58568-6) [facility] GLUCOSE (AUTOMATED)2020-11-12 22:33:59 Test Item Value Reference Range Interpretation Comments POCT GLU (test code = 9007590035) 221 mg/dL 70-110 H Lab Interpretation (test code = Abnormal 73084-3) [facility] GLUCOSE (AUTOMATED)2020-11-12 18:14:33 Test Item Value Reference Range Interpretation Comments POCT GLU (test code = 8641670367) 286 mg/dL 70-110 H Lab Interpretation (test code = Abnormal 99117-6) [facility] GLUCOSE (AUTOMATED)2020-11-12 13:32:08 Test Item Value Reference Range Interpretation Comments POCT GLU (test code = 9680872880) 408 mg/dL 70-110 H Lab Interpretation (test code = Abnormal 04255-0) [facility] GLUCOSE (AUTOMATED)2020-11-12 11:59:34 Test Item Value Reference Range Interpretation Comments POCT GLU (test code = 8468101750) 262 mg/dL 70-110 H Lab Interpretation (test code = Abnormal 52868-0) [facility] GLUCOSE (AUTOMATED)2020-11-12 11:59:33 Test Item Value Reference Range Interpretation Comments POCT GLU (test code = 1670230515) 257 mg/dL 70-110 H Lab Interpretation (test code = Abnormal 99303-2) [facility] GLUCOSE (AUTOMATED)2020-11-11 23:15:20 Test Item Value Reference Range Interpretation Comments POCT GLU (test code = 7677657342) 199 mg/dL 70-110 H Lab Interpretation (test code = Abnormal 25225-4) [facility] GLUCOSE (AUTOMATED)2020-11-11 14:12:18 Test Item Value Reference Range Interpretation Comments POCT GLU (test code = 7389613025) 206 mg/dL 70-110 H Lab Interpretation (test code = Abnormal 88630-4) [facility] GLUCOSE (AUTOMATED)2020-11-11 14:02:30 Test Item Value Reference Range Interpretation Comments POCT GLU (test code = 3506986404) 309 mg/dL 70-110 H Lab Interpretation (test code = Abnormal 22255-2) [facility] METABOLIC PANEL (NA, K, CL, CO2, GLUCOSE, BUN, CREATININE, CA)2020-11-11 12:07:11 Test Item Value Reference Range Interpretation Comments NA (test code = 129 mmol/L 135-145 L 7677839792) K (test code = 4.5 mmol/L 3.5-5.0 3405104508) CL (test code = 98 mmol/L 98-108 7925892822) CO2 TOTAL (test code = 25 mmol/L 23-31 3561869426) AGAP (test code = 2-16 2632285330) BUN (test code = 19 mg/dL 7-23 4617980407) GLUCOSE (test code = 275 mg/dL 70-110 H 4010113695) CREATININE (test code = 0.74 mg/dL 0.60-1.25 4234356465) CALCIUM (test code = 8.3 mg/dL 8.6-10.6 L 3782913504) eGFR Calculation mL/min/1.73m2 (Non-) (test code = 2041477039) eGFR Calculation mL/min/1.73m2 () (test code = 9257072893) MAGDA (test code = MAGDA) Association of [...] tests). Lab Interpretation Abnormal (test code = 91552-3) [facility] WITH [id number] 11:54:53 Test Item Value Reference Range Interpretation [...] RDW-SD (test code = 38.5 fL 38.5-51.6 50946-9) RDW-CV (test code = 13.7 % 12.1-15.4 788-0) PLT (test code = See_Comment [Automated 777-3) message] The sy stem which generated this result transmitted reference range : 150 - 328 10*3/ ?L. The reference r jaime was not used to interpret this result as normal/abnormal . MPV (test code = 10.1 fL 9.8-13.0 79268-9) NRBC/100 WBC (test See_Comment [Automat ed code = 5288802000) message] The system which generated this result transmitted reference range : 0.0 - 10.0 /100 WBCs. The refer ence range was not u sed to interpret th is result as normal/abnormal . NRBC x10^3 (test code <0.01 See_Comment [Auto mated = 8249666646) message] The s ystem which generated this result transmitted reference range : 10*3/?L. The reference range was not used to interpret this result as normal/abnormal . GRAN MAT (NEUT) % 79.1 % (test code = 770-8) IMM GRAN % (test code 0.50 % = 1252858740) LYMPH % (test code = 10.4 % 736-9) MONO % (test code = 9.7 % 5905-5) EOS % (test code = 0.3 % 713-8) BASO % (test code = 0.0 % 706-2) GRAN MAT x10^3(ANC) 4.54 10*3/uL 1.99-6.95 (test code = 6363221008) IMM GRAN x10^3 (test 0.03 10*3/uL 0.00-0.06 code = 2185305066) LYMPH x10^3 (test code 0.60 10*3/uL 1.09-3.23 L = 731-0) MONO x10^3 (test code 0.56 10*3/uL 0.36-1.02 = 742-7) EOS x10^3 (test code = <0.03 0.06-0.53 L 711-2) BASO x10^3 (test code <0.03 0.01-0.09 = 704-7) Lab Interpretation Abnormal (test code = 84320-0) [facility] GLUCOSE (AUTOMATED)2020-11-11 01:27:24 Test Item Value Reference Range Interpretation Comments POCT GLU (test code = 8485719565) 188 mg/dL 70-110 H Lab Interpretation (test code = Abnormal 54885-5) [facility] GLUCOSE (AUTOMATED)2020-11-10 14:22:49 Test Item Value Reference Range Interpretation Comments POCT GLU (test code = 4641499139) 425 mg/dL 70-110 H Lab Interpretation (test code = Abnormal 01681-4) [facility] GLUCOSE (AUTOMATED)2020-11-10 02:20:00 Test Item Value Reference Range Interpretation Comments POCT GLU (test code = 370 mg/dL 70-110 H Notifi ed Provider 2564738071) Lab Interpretation (test Abnormal code = 06823-9) [facility] GLUCOSE (AUTOMATED)2020-11-09 22:44:00 Test Item Value Reference Range Interpretation Comments POCT GLU (test code = 3276998743) 254 mg/dL 70-110 H Lab Interpretation (test code = Abnormal 76399-2) [facility] GLUCOSE (AUTOMATED)2020-11-09 22:25:00 Test Item Value Reference Range Interpretation Comments POCT GLU (test code = 8674139869) 280 mg/dL 70-110 H Lab Interpretation (test code = Abnormal 09354-2) [facility] GLUCOSE (AUTOMATED)2020-11-09 15:02:00 Test Item Value Reference Range Interpretation Comments POCT GLU (test code = 6056715762) 273 mg/dL 70-110 H Lab Interpretation (test code = Abnormal 60055-5) [facility] METABOLIC PANEL (NA, K, CL, CO2, GLUCOSE, BUN, CREATININE, CA)2020-11-09 12:25:00 Test Item Value Reference Range Interpretation Comments NA (test code = 131 mmol/L 135-145 L 8338173657) K (test code = 4.3 mmol/L 3.5-5.0 1574388576) CL (test code = 100 mmol/L 98-108 1516025958) CO2 TOTAL (test code = 24 mmol/L 23-31 9402327129) AGAP (test code = 2-16 1476379466) BUN (test code = 23 mg/dL 7-23 4498130587) GLUCOSE (test code = 190 mg/dL 70-110 H 7001302189) CREATININE (test code = 0.86 mg/dL 0.60-1.25 5045657218) CALCIUM (test code = 8.1 mg/dL 8.6-10.6 L 3514680197) eGFR Calculation mL/min/1.73m2 (Non-) (test code = 4062955072) eGFR Calculation mL/min/1.73m2 () (test code = 3971710159) MAGDA (test code = MAGDA) Association of [...] tests). Lab Interpretation Abnormal (test code = 29364-8) [facility] WITH [id number] 12:14:00 Test Item Value Reference Range Interpretation Comments WBC (test code = See_Comment [Automated 6299-2) message] The sy stem which generated this result transmitted reference range : 4.20 - 10.70 10*3/?L. The reference range was not used to interpret this result as normal/abnormal . RBC (test code = See_Comment [Automated 853-8) message] The sy stem which generated this [...] RDW-SD (test code = 38.6 fL 38.5-51.6 29029-7) RDW-CV (test code = 13.6 % 12.1-15.4 788-0) PLT (test code = See_Comment [Automated 777-3) message] The sy stem which generated this result transmitted reference range : 150 - 328 10*3/ ?L. The reference r jaime was not used to interpret this result as normal/abnormal . MPV (test code = 10.9 fL 9.8-13.0 84733-6) NRBC/100 WBC (test See_Comment [Automat ed code = 8639826340) message] The system which generated this result transmitted reference range : 0.0 - 10.0 /100 WBCs. The refer ence range was not u sed to interpret th is result as normal/abnormal . NRBC x10^3 (test code <0.01 See_Comment [Auto mated = 4809371072) message] The s ystem which generated this result transmitted reference range : 10*3/?L. The reference range was not used to interpret this result as normal/abnormal . GRAN MAT (NEUT) % 67.2 % (test code = 770-8) IMM GRAN % (test code 1.10 % = 5514645485) LYMPH % (test code = 17.9 % 736-9) MONO % (test code = 12.8 % 5905-5) EOS % (test code = 0.8 % 713-8) BASO % (test code = 0.2 % 706-2) GRAN MAT x10^3(ANC) 3.19 10*3/uL 1.99-6.95 (test code = 0155547398) IMM GRAN x10^3 (test 0.05 10*3/uL 0.00-0.06 code = 7116704996) LYMPH x10^3 (test code 0.85 10*3/uL 1.09-3.23 L = 731-0) MONO x10^3 (test code 0.61 10*3/uL 0.36-1.02 = 742-7) EOS x10^3 (test code = 0.04 10*3/uL 0.06-0.53 L 711-2) BASO x10^3 (test code <0.03 0.01-0.09 = 704-7) Lab Interpretation Abnormal (test code = 54410-2) [facility] GLUCOSE (AUTOMATED)2020-11-09 02:20:00 Test Item Value Reference Range Interpretation Comments POCT GLU (test code = 4925958465) 259 mg/dL 70-110 H Lab Interpretation (test code = Abnormal 46902-8) [facility] GLUCOSE (AUTOMATED)2020-11-08 22:34:00 Test Item Value Reference Range Interpretation Comments POCT GLU (test code = 6252074194) 300 mg/dL 70-110 H Lab Interpretation (test code = Abnormal 75896-8) [facility] GLUCOSE (AUTOMATED)2020-11-08 18:40:00 Test Item Value Reference Range Interpretation Comments POCT GLU (test code = 5536546820) 316 mg/dL 70-110 H Lab Interpretation (test code = Abnormal 40750-1) [facility] GLUCOSE (AUTOMATED)2020-11-08 17:40:00 Test Item Value Reference Range Interpretation Comments POCT GLU (test code = 1627203912) 287 mg/dL 70-110 H Lab Interpretation (test code = Abnormal 21894-1) [facility])2020-11-08 15:31:00 Test Item Value Reference Range Interpretation Comments HGB A1C (test code = 9.3 % 4.0-6.0 H 4548-4) MAGDA (test code = MAGDA) %A1C (NGSP) Interpretation (ADA)4.8-5.6 ? ? Normal or (Non-Diabetic Range)5.7-6.4 ? ? Increased Risk (Pre-Diabetic)>6.5 ?Diabetes Indicated Lab Interpretation Abnormal (test code = 17746-0) [facility] GLUCOSE (AUTOMATED)2020-11-08 14:28:00 Test Item Value Reference Range Interpretation Comments POCT GLU (test code = 7654924343) 205 mg/dL 70-110 H Lab Interpretation (test code = Abnormal 41961-6) [facility] GLUCOSE (AUTOMATED)2020-11-08 02:23:00 Test Item Value Reference Range Interpretation Comments POCT GLU (test code = 7391868077) 357 mg/dL 70-110 H Lab Interpretation (test code = Abnormal 79791-9) [facility] GLUCOSE (AUTOMATED)2020-11-07 18:30:00 Test Item Value Reference Range Interpretation Comments POCT GLU (test code = 8142100133) 354 mg/dL 70-110 H Lab Interpretation (test code = Abnormal 52670-2) [facility] 17:37:00 Test Item Value Reference Range Interpretation Comments Procalcitonin (test 0.04 ng/mL <0.07 code = 0072455519) MAGDA (test code = MAGDA) INTERPRETATION OF [...] lung abscess/empyema. For further information please refer to:[email or web address] Lab Interpretation Normal (test code = 10292-6) [facility]2020-11-07 14:58:00 Test Item Value Reference Range Interpretation Comments POCT GLU (test code = 0840714242) 235 mg/dL 70-110 H Lab Interpretation (test code = Abnormal 50323-0) [facility]OL[facility] (87694)2020-11-07 13:00:00 Test Item Value Reference Range Interpretation Comments NA (test code = 131 mmol/L 135-145 L 4523104710) K (test code = 4.1 mmol/L 3.5-5.0 4875807036) CL (test code = 102 mmol/L 98-108 3166339779) CO2 TOTAL (test code = 21 mmol/L 23-31 L 2297529532) AGAP (test code = 2-16 3096406993) BUN (test code = 22 mg/dL 7-23 1111897336) GLUCOSE (test code = 204 mg/dL 70-110 H 3217687222) CREATININE (test code = 0.68 mg/dL 0.60-1.25 1460872967) TOTAL BILI (test code = 0.7 mg/dL 0.1-1.1 9889033517) CALCIUM (test code = 8.3 mg/dL 8.6-10.6 L 0764382959) T PROTEIN (test code = 6.3 g/dL 6.3-8.2 9967256160) ALBUMIN (test code = 3.0 g/dL 3.5-5.0 L 2435955318) ALK PHOS (test code = 84 U/L 34-122 2130173768) ALTv (test code = 21 U/L 5-50 1742-6) AST(SGOT) (test code = 25 U/L 13-40 2941967810) eGFR Calculation mL/min/1.73m2 (Non-) (test code = 8645920473) eGFR Calculation mL/min/1.73m2 () (test code = 0779815794) MAGDA (test code = MAGDA) Association of [...] tests). Lab Interpretation Abnormal (test code = 48949-7) [facility] WITH [id number] 11:44:00 Test Item Value Reference Range Interpretation [...] RDW-SD (test code = 38.5 fL 38.5-51.6 49400-0) RDW-CV (test code = 13.4 % 12.1-15.4 788-0) PLT (test code = See_Comment [Automated 777-3) message] The sy stem which generated this result transmitted reference range : 150 - 328 10*3/ ?L. The reference r jaime was not used to interpret this result as normal/abnormal . MPV (test code = 10.8 fL 9.8-13.0 65087-1) NRBC/100 WBC (test See_Comment [Automat ed code = 4938662731) message] The system which generated this result transmitted reference range : 0.0 - 10.0 /100 WBCs. The refer ence range was not u sed to interpret th is result as normal/abnormal . NRBC x10^3 (test code <0.01 See_Comment [Auto mated = 9411308765) message] The s ystem which generated this result transmitted reference range : 10*3/?L. The reference range was not used to interpret this result as normal/abnormal . GRAN MAT (NEUT) % 68.9 % (test code = 770-8) IMM GRAN % (test code 0.90 % = 4640895548) LYMPH % (test code = 14.9 % 736-9) MONO % (test code = 14.4 % 5905-5) EOS % (test code = 0.9 % 713-8) BASO % (test code = 0.0 % 706-2) GRAN MAT x10^3(ANC) 3.15 10*3/uL 1.99-6.95 (test code = 7585513513) IMM GRAN x10^3 (test 0.04 10*3/uL 0.00-0.06 code = 9091012921) LYMPH x10^3 (test code 0.68 10*3/uL 1.09-3.23 L = 731-0) MONO x10^3 (test code 0.66 10*3/uL 0.36-1.02 = 742-7) EOS x10^3 (test code = 0.04 10*3/uL 0.06-0.53 L 711-2) BASO x10^3 (test code <0.03 0.01-0.09 = 704-7) Lab Interpretation Abnormal (test code = 37152-1) [facility] GLUCOSE (AUTOMATED)2020-11-07 06:31:00 Test Item Value Reference Range Interpretation Comments POCT GLU (test code = 7066214542) 288 mg/dL 70-110 H Lab Interpretation (test code = Abnormal 35930-1) [facility] GLUCOSE (AUTOMATED)2020-11-07 02:13:00 Test Item Value Reference Range Interpretation Comments POCT GLU (test code = 7475975493) 475 mg/dL 70-110 HH Lab Interpretation (test code = Abnormal 72511-0) [facility] GLUCOSE (AUTOMATED)2020-11-06 22:08:00 Test Item Value Reference Range Interpretation Comments POCT GLU (test code = 2390241206) 342 mg/dL 70-110 H Lab Interpretation (test code = Abnormal 50158-8) [facility] 18:15:00 Test Item Value Reference Range Interpretation Comments POCT GLU (test code = 268 mg/dL 70-110 H Notifi ed Provider [id number]) Lab Interpretation (test Abnormal code = 74218-4) [facility] 17:49:00 Test Item Value Reference Range Interpretation Comments POCT GLU (test code = 126 mg/dL 70-110 H Notifi ed Provider 5575744909) Lab Interpretation (test Abnormal code = 88280-7) [facility] 06:23:00 Test Item Value Reference Range Interpretation Comments POCT GLU (test code = 335 mg/dL 70-110 H Notifi ed Provider 1661566452) Lab Interpretation (test Abnormal code = 07699-0) [facility] 02:03:00 Test Item Value Reference Range Interpretation Comments POCT GLU (test code = 393 mg/dL 70-110 H Notifi ed Provider 7619332069) Lab Interpretation (test Abnormal code = 23726-6) [facility]2020-11-05 22:42:00 Test Item Value Reference Range Interpretation Comments POCT GLU (test code = 2519412000) 297 mg/dL 70-110 H Lab Interpretation (test code = Abnormal 18032-9) [facility]-05 17:24:00 Test Item Value Reference Range Interpretation Comments POCT GLU (test code = 8720742501) 204 mg/dL 70-110 H Lab Interpretation (test code = Abnormal 61078-7) [facility]05 17:24:00 Test Item Value Reference Range Interpretation Comments POCT GLU (test code = 3170213150) 223 mg/dL 70-110 H Lab Interpretation (test code = Abnormal 03981-3) [facility] 12[facility]46:00 Test Item Value Reference Range Interpretation Comments POCT GLU (test code = 8134809274) 344 mg/dL 70-110 H Lab Interpretation (test code = Abnormal 10735-9) [facility] GLUCOSE (AUTOMATED)2020-11-05 12:23:00 Test Item Value Reference Range Interpretation Comments POCT GLU (test code = 6103958605) 218 mg/dL 70-110 H Lab Interpretation (test code = Abnormal 24653-3) [facility] GLUCOSE (AUTOMATED)2020-11-05 05:28:00 Test Item Value Reference Range Interpretation Comments POCT GLU (test code = 304 mg/dL 70-110 H Notifi ed Provider [id number]) Lab Interpretation (test Abnormal code = 69208-2) [facility] GLUCOSE (AUTOMATED)2020-11-04 19:04:00 Test Item Value Reference Range Interpretation Comments POCT GLU (test code = 7979535274) 214 mg/dL 70-110 H Lab Interpretation (test code = Abnormal 35415-2) [facility] GLUCOSE (AUTOMATED)2020-11-04 19:04:00 Test Item Value Reference Range Interpretation Comments POCT GLU (test code = 0693323409) 325 mg/dL 70-110 H Lab Interpretation (test code = Abnormal 13976-1) [facility] [id number] 18:41:00 LEUKOPENIA WITH ABSOLUTE NEUTROPENIA, ABSOLUTE LYMPHOPENIA AND ABSOLUTE MONOCYTOPENIA WITH RARE PLASMACYTOID LYMPHOCYTES. EXCLUDE VIRAL ILLNESS AND AUTOIMMUNE DISORDER. 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 FINDINGS SUGGESTIVE OF IRON DEFICIENCY; CONCURRENT HEMOGLOBINOPATHY CANNOT BE COMPLETELY EXCLUDED. SUGGEST HEMOGLOBIN ELECTROPHORESIS. THROMBOCYTOPENIA WITH OCCASIONAL LARGE AND GIANT FORMS.[facility] GLUCOSE (AUTOMATED) 2020-11-04 14:46:00 Test Item Value Reference Range Interpretation Comments POCT GLU (test code = 3040317972) 283 mg/dL 70-110 H Lab Interpretation (test code = Abnormal 71437-6) [facility] GLUCOSE (AUTOMATED)2020-11-04 02:10:00 Test Item Value Reference Range Interpretation Comments POCT GLU (test code = 1099517598) 264 mg/dL 70-110 H Lab Interpretation (test code = Abnormal 27567-8) [facility] GLUCOSE (AUTOMATED)2020-11-03 22:05:00 Test Item Value Reference Range Interpretation Comments POCT GLU (test code = 7105267149) 317 mg/dL 70-110 H Lab Interpretation (test code = Abnormal 09464-6) [facility] GLUCOSE (AUTOMATED)2020-11-03 14:32:00 Test Item Value Reference Range Interpretation Comments POCT GLU (test code = 6111902931) 231 mg/dL 70-110 H Lab Interpretation (test code = Abnormal 55069-1) [facility] WITH [id number] 12:36:00 Test Item Value Reference Range Interpretation [...] (test code = 37.3 fL 38.5-51.6 L 76464-1) RDW-CV (test code = 13.2 % 12.1-15.4 788-0) PLT (test code = See_Comment L [Automated 777-3) message] The sy stem which generated this result transmitted reference range : 150 - 328 10*3/ ?L. The reference r jaime was not used to interpret this result as normal/abnormal . MPV (test code = 11.7 fL 9.8-13.0 74195-4) IPF % (test code = 11.8 % 1.2-10.7 H Platelet count 5284411086) measured by fluorescence method. NRBC/100 WBC (test See_Comment [Automat ed code = 6126718782) message] The system which generated this result transmitted reference range : 0.0 - 10.0 /100 WBCs. The refer ence range was not u sed to interpret th is result as normal/abnormal . NRBC x10^3 (test code See_Comment [Auto mated = 0997105450) message] The s ystem which generated this result transmitted reference range : 10*3/?L. The reference range was not used to interpret this result as normal/abnormal . GRAN MAT (NEUT) % 79.4 % (test code = 770-8) IMM GRAN % (test code 0.70 % = 7733758317) LYMPH % (test code = 12.3 % 736-9) MONO % (test code = 7.4 % 5905-5) EOS % (test code = 0.1 % 713-8) BASO % (test code = 0.1 % 706-2) GRAN MAT x10^3(ANC) 5.37 10*3/uL 1.99-6.95 (test code = 5620698892) IMM GRAN x10^3 (test 0.05 10*3/uL 0.00-0.06 code = 9961847312) LYMPH x10^3 (test code 0.83 10*3/uL 1.09-3.23 L = 731-0) MONO x10^3 (test code 0.50 10*3/uL 0.36-1.02 = 742-7) EOS x10^3 (test code = <0.03 0.06-0.53 L 711-2) BASO x10^3 (test code <0.03 0.01-0.09 = 704-7) Lab Interpretation Abnormal (test code = 48541-6) [facility]. METABOLIC PANEL (88516)2020-11-03 12:24:00 Test Item Value Reference Range Interpretation Comments NA (test code = 133 mmol/L 135-145 L 5929014506) K (test code = 4.8 mmol/L 3.5-5.0 5632569007) CL (test code = 102 mmol/L 98-108 3900518554) CO2 TOTAL (test code = 20 mmol/L 23-31 L 5838032178) AGAP (test code = 2-16 8716035294) BUN (test code = 26 mg/dL 7-23 H 5126419047) GLUCOSE (test code = 211 mg/dL 70-110 H 0162908657) CREATININE (test code = 0.61 mg/dL 0.60-1.25 8775162271) TOTAL BILI (test code = 0.8 mg/dL 0.1-1.1 1192292915) CALCIUM (test code = 8.5 mg/dL 8.6-10.6 L 5819163302) T PROTEIN (test code = 6.5 g/dL 6.3-8.2 0344162198) ALBUMIN (test code = 3.4 g/dL 3.5-5.0 L 6264824905) ALK PHOS (test code = 85 U/L 34-122 2935822118) ALTv (test code = 22 U/L 5-50 1742-6) AST(SGOT) (test code = 29 U/L 13-40 7134508381) eGFR Calculation mL/min/1.73m2 (Non-) (test code = 4151352417) eGFR Calculation mL/min/1.73m2 () (test code = 5541232387) MAGDA (test code = MAGDA) Association of [...] tests). Lab Interpretation Abnormal (test code = 85614-9) [facility] GLUCOSE (AUTOMATED)2020-11-03 04:10:00 Test Item Value Reference Range Interpretation Comments POCT GLU (test code = 0272524945) 365 mg/dL 70-110 H Lab Interpretation (test code = Abnormal 93582-7) [facility] GLUCOSE (AUTOMATED)2020-11-02 21:46:00 Test Item Value Reference Range Interpretation Comments POCT GLU (test code = 6607754805) 369 mg/dL 70-110 H Lab Interpretation (test code = Abnormal 16808-6) [facility] GLUCOSE (AUTOMATED)2020-11-02 18:35:00 Test Item Value Reference Range Interpretation Comments POCT GLU (test code = 5778423799) 405 mg/dL 70-110 H Lab Interpretation (test code = Abnormal 25228-2) [facility] GLUCOSE (AUTOMATED)2020-11-02 14:58:00 Test Item Value Reference Range Interpretation Comments POCT GLU (test code = 2250906932) 215 mg/dL 70-110 H Lab Interpretation (test code = Abnormal 19924-2) [facility] GLUCOSE (AUTOMATED)2020-11-01 17:54:00 Test Item Value Reference Range Interpretation Comments POCT GLU (test code = 4010735558) 405 mg/dL 70-110 H Lab Interpretation (test code = Abnormal 10284-3) [facility] CampusTHYROID STIMULATING [id number] 16:50:00 Test Item Value Reference Range Interpretation Comments TSH (test code = See_Comment Biotin has been 5807281780) reported to cau se a negative bias, interpret resul ts relative to pat ient's use of biotin. [Automated mess age] The system [employer] generated this result transmitted ref erence range: 0.45 - 4 .70 mIU/L. The refe rence range was not u sed to interpret this result as normal/abnor mal. Lab Interpretation (test Normal code = 93790-6) [facility] GLUCOSE (AUTOMATED)2020-11-01 14:57:00 Test Item Value Reference Range Interpretation Comments POCT GLU (test code = 9785867233) 270 mg/dL 70-110 H Lab Interpretation (test code = Abnormal 67383-6) [facility] CampusN-TERMINAL [id number] 12:40:00 Test Item Value Reference Range Interpretation Comments NT-proBNP (test code 303 pg/mL See_Comment H [Autom ated = 6883783736) message] The system which generated this result transmitted reference range : <=125. The reference range was not used to interpret this result as normal/abnormal . MAGDA (test code = MAGDA) Biotin has been reported to cause a negative bias, interpret results relative to patient's use of biotin. Lab Interpretation Abnormal (test code = 65481-5) [facility] GLUCOSE (AUTOMATED)2020-11-01 10:31:00 Test Item Value Reference Range Interpretation Comments POCT GLU (test code = 6453669843) 240 mg/dL 70-110 H Lab Interpretation (test code = Abnormal 94816-7) [facility] GLUCOSE (AUTOMATED)2020-11-01 04:35:00 Test Item Value Reference Range Interpretation Comments POCT GLU (test code = 322 mg/dL 70-110 H Notifi ed Provider 4865462371) Lab Interpretation (test Abnormal code = 40352-9) [facility] GLUCOSE (AUTOMATED)2020-11-01 02:26:00 Test Item Value Reference Range Interpretation Comments POCT GLU (test code = 328 mg/dL 70-110 H Notifi ed Provider 9963748155) Lab Interpretation (test Abnormal code = 00909-9) [facility] GLUCOSE (AUTOMATED)2020-11-01 02:08:00 Test Item Value Reference Range Interpretation Comments POCT GLU (test code = 0013126030) 300 mg/dL 70-110 H Lab Interpretation (test code = Abnormal 83991-5) [facility] GLUCOSE (AUTOMATED)2020-10-31 19:05:00 Test Item Value Reference Range Interpretation Comments POCT GLU (test code = 9420451034) 254 mg/dL 70-110 H Lab Interpretation (test code = Abnormal 82129-5) [facility] GLUCOSE (AUTOMATED)2020-10-31 15:51:00 Test Item Value Reference Range Interpretation Comments POCT GLU (test code = 2746085035) 202 mg/dL 70-110 H Lab Interpretation (test code = Abnormal 84656-2) [facility] with Nptqjbrkcozv7510-30-25 15:22:00 Test Item Value Reference Range Interpretation [...] (test code = 36.5 fL 38.5-51.6 L 24143-7) RDW-CV (test code = 12.8 % 12.1-15.4 788-0) PLT (test code = See_Comment L [Automated 777-3) message] The sy stem which generated this result transmitted reference range : 150 - 328 10*3/ ?L. The reference r jaime was not used to interpret this result as normal/abnormal . MPV (test code = 11.8 fL 9.8-13.0 21425-7) NRBC/100 WBC (test See_Comment [Automat ed code = 7351422745) message] The system which generated this result transmitted reference range : 0.0 - 10.0 /100 WBCs. The refer ence range was not u sed to interpret th is result as normal/abnormal . NRBC x10^3 (test code <0.01 See_Comment [Auto mated = 5088252814) message] The s ystem which generated this result transmitted reference range : 10*3/?L. The reference range was not used to interpret this result as normal/abnormal . GRAN MAT (NEUT) % 67.2 % (test code = 770-8) IMM GRAN % (test code 0.70 % = 6304663461) LYMPH % (test code = 22.4 % 736-9) MONO % (test code = 9.7 % 5905-5) EOS % (test code = 0.0 % 713-8) BASO % (test code = 0.0 % 706-2) GRAN MAT x10^3(ANC) 1.86 10*3/uL 1.99-6.95 L (test code = 0984325456) IMM GRAN x10^3 (test <0.03 0.00-0.06 code = 5251892035) LYMPH x10^3 (test code 0.62 10*3/uL 1.09-3.23 L = 731-0) MONO x10^3 (test code 0.27 10*3/uL 0.36-1.02 L = 742-7) EOS x10^3 (test code = <0.03 0.06-0.53 L 711-2) BASO x10^3 (test code <0.03 0.01-0.09 = 704-7) Lab Interpretation Abnormal (test code = 08798-1) [facility] CampusLYLAPRISMA HEALTH LA[facility] HOSPITALJERRY [id number] 13:13:00 Test Item Value Reference Range Interpretation Comments TROPONIN I (test 0.002 ng/mL See_Comment [Automated code = 2627007780) message] The system which generated this result [...] ? Lab Interpretation Normal (test code = 95991-2) [facility] CampusN-TERMINAL [id number] 13:10:00 Test Item Value Reference Range Interpretation Comments NT-proBNP (test code 323 pg/mL See_Comment H [Autom ated = 1107517649) message] The system which generated this result transmitted reference range : <=125. The reference range was not used to interpret this result as normal/abnormal . MAGDA (test code = MAGDA) Biotin has been reported to cause a negative bias, interpret results relative to patient's use of biotin. Lab Interpretation Abnormal (test code = 70156-7) [facility] CampusCOMP. METABOLIC PANEL (04057)2020-10-31 13:05:00 Test Item Value Reference Range Interpretation Comments NA (test code = 135 mmol/L 135-145 3803163090) K (test code = 4.5 mmol/L 3.5-5.0 3192637295) CL (test code = 105 mmol/L 98-108 2601114634) CO2 TOTAL (test code = 21 mmol/L 23-31 L 4520837771) AGAP (test code = 2-16 3970330253) BUN (test code = 23 mg/dL 7-23 0322947150) GLUCOSE (test code = 218 mg/dL 70-110 H 9655582304) CREATININE (test code = 0.67 mg/dL 0.60-1.25 4121941698) TOTAL BILI (test code = 0.6 mg/dL 0.1-1.8 9234399789) CALCIUM (test code = 8.4 mg/dL 8.6-10.6 L 0339897032) T PROTEIN (test code = 6.9 g/dL 6.3-8.2 9049921591) ALBUMIN (test code = 3.6 g/dL 3.5-5.0 6928436751) ALK PHOS (test code = 75 U/L 34-122 5471695346) ALTv (test code = 29 U/L 5-50 1742-6) AST(SGOT) (test code = 59 U/L 13-40 H 2394889580) eGFR Calculation mL/min/1.73m2 (Non-) (test code = 4468550230) eGFR Calculation mL/min/1.73m2 () (test code = 5268424860) MAGDA (test code = MAGDA) Association of [...] tests). Lab Interpretation Abnormal (test code = 36590-3) [facility] GLUCOSE (AUTOMATED)2020-10-31 11:11:00 Test Item Value Reference Range Interpretation Comments POCT GLU (test code = 0751938240) 265 mg/dL 70-110 H Lab Interpretation (test code = Abnormal 32288-8) [facility] GLUCOSE (AUTOMATED)2020-10-30 23:59:00 Test Item Value Reference Range Interpretation Comments POCT GLU (test code = 2711558451) 240 mg/dL 70-110 H Lab Interpretation (test code = Abnormal 41636-8) [facility] GLUCOSE (AUTOMATED)2020-10-30 23:59:00 Test Item Value Reference Range Interpretation Comments POCT GLU (test code = 5481036437) 241 mg/dL 70-110 H Lab Interpretation (test code = Abnormal 70328-7) [facility] CampusFERRITIN [id number] 22:35:00 Test Item Value Reference Range Interpretation Comments FERRITIN (test code = 80.2 ng/mL 18.0-464.0 2495734451) MAGDA (test code = MAGDA) Biotin has been reported to cause a negative bias, interpret results relative to patient's use of biotin. Lab Interpretation (test Normal code = 69261-8) [facility] CampusVITAMIN B12, [id number] 22:35:00 Test Item Value Reference Range Interpretation Comments VIT B12 (test code = 456 pg/mL 240-930 8221235328) MAGDA (test code = MAGDA) Biotin has been reported to cause a positive bias, interpret results relative to patient's use of biotin. Lab Interpretation (test Normal code = 54947-8) [facility] CampusTRANSFERRIN2021-02-24 18:56:00 Test Item Value Reference Range Interpretation Comments TRANSFERRN (test code = 2309146793) 245 mg/dL 168-336 Lab Interpretation (test code = Normal 68899-9) [facility] CampusFOLATE2021-02-24 18:52:00 Test Item Value Reference Range Interpretation Comments FOLATE SER (test code = 14.8 ng/mL 3.0-20.0 7399822570) Lab Interpretation (test code = Normal 25390-6) [facility] CampusPrepar Plasma (in units): 1 Units~Indication: Dilutional Ututkzrhiyjg9348-45-28 16:47:36 Test Item Value Reference Range Interpretation Comments Unit Blood Type (test O Pos code = 4410) ISBT Blood Type Code (test code = 255377) Unit Number (test code [id number] = 4411) Blood Expiration Date & Time (test code = 704235) Status Information Issued (test code = 4412) Product Identification FFP (test code = 4413) Product Code (test G5619S42 Performed at [facility] code = 4414) Laboratory Services - [facility] Blood [address] [place] [address]Cgiv Free: [phone] A No. [id number] [facility] CampusCOMP. METABOLIC PANEL (41774)2020-10-30 15:18:00 Test Item Value Reference Range Interpretation Comments NA (test code = 135 mmol/L 135-145 1872327362) K (test code = 4.1 mmol/L 3.5-5.0 1430622145) CL (test code = 104 mmol/L 98-108 5829900849) CO2 TOTAL (test code = 21 mmol/L 23-31 L 8747886548) AGAP (test code = 2-16 7092416428) BUN (test code = 16 mg/dL 7-23 8556276228) GLUCOSE (test code = 219 mg/dL 70-110 H 3278110229) CREATININE (test code = 0.72 mg/dL 0.60-1.25 4695337469) TOTAL BILI (test code = 0.5 mg/dL 0.1-1.9 1185753319) CALCIUM (test code = 8.0 mg/dL 8.6-10.6 L 6082475923) T PROTEIN (test code = 6.1 g/dL 6.3-8.2 L 0987703800) ALBUMIN (test code = 3.2 g/dL 3.5-5.0 L 8049679775) ALK PHOS (test code = 69 U/L 34-122 0724361989) ALTv (test code = 30 U/L 5-50 1742-6) AST(SGOT) (test code = 53 U/L 13-40 H 4342219549) eGFR Calculation mL/min/1.73m2 (Non-) (test code = 5837888108) eGFR Calculation mL/min/1.73m2 () (test code = 8572067753) MAGDA (test code = MAGDA) Association of [...] tests). Lab Interpretation Abnormal (test code = 21509-7) [facility] CampusHEIDI [id number] 14:22:00 Test Item Value Reference Range Interpretation Comments TROPONIN I (test 0.002 ng/mL See_Comment [Automated code = 4918460094) message] The system which generated this result [...] ? Lab Interpretation Normal (test code = 69173-5) [facility] CampusIRO [id number] 14:19:00 Test Item Value Reference Range Interpretation Comments IRON (test code = 8520175773) 32 ug/dL 50-160 L TIBC (test code = 8095911373) 339 ug/dL 250-410 % FE SAT (test code = 0201593506) 9 % 20-50 L Lab Interpretation (test code = Abnormal 79695-1) [facility] [id number] 14:19:00 Test Item Value Reference Range Interpretation Comments TIBC (test code = 8149115722) 339 ug/dL 250-410 Lab Interpretation (test code = Normal 43002-9) [facility] CampusN-TERMINAL [id number] 14:19:00 Test Item Value Reference Range Interpretation Comments NT-proBNP (test code 124 pg/mL See_Comment [Autom ated = 9732973482) message] The system which generated this result transmitted reference range : <=125. The reference range was not used to interpret this result as normal/abnormal . MAGDA (test code = MAGDA) Biotin has been reported to cause a negative bias, interpret results relative to patient's use of biotin. Lab Interpretation Normal (test code = 94463-3) [facility] with Ncgbsbkdxbfp4130-54-03 13:46:00 Test Item Value Reference Range Interpretation [...] (test code = 37.1 fL 38.5-51.6 L 01079-0) RDW-CV (test code = 13.0 % 12.1-15.4 788-0) PLT (test code = See_Comment L [Automated 777-3) message] The sy stem which generated this result transmitted reference range : 150 - 328 10*3/ ?L. The reference r jaime was not used to interpret this result as normal/abnormal . MPV (test code = 11.0 fL 9.8-13.0 20410-9) IPF % (test code = 4.8 % 1.2-10.7 Platelet count 3455288001) measured by fluorescence method. NRBC/100 WBC (test See_Comment [Automat ed code = 9143545491) message] The system which generated this result transmitted reference range : 0.0 - 10.0 /100 WBCs. The refer ence range was not u sed to interpret th is result as normal/abnormal . NRBC x10^3 (test code <0.01 See_Comment [Auto mated = 4499990036) message] The s ystem which generated this result transmitted reference range : 10*3/?L. The reference range was not used to interpret this result as normal/abnormal . GRAN MAT (NEUT) % 47.9 % (test code = 770-8) IMM GRAN % (test code 0.60 % = 6356813890) LYMPH % (test code = 40.4 % 736-9) MONO % (test code = 11.1 % 5905-5) EOS % (test code = 0.0 % 713-8) BASO % (test code = 0.0 % 706-2) GRAN MAT x10^3(ANC) 0.82 10*3/uL 1.99-6.95 L (test code = 6202450465) IMM GRAN x10^3 (test <0.03 0.00-0.06 code = 4612511724) LYMPH x10^3 (test code 0.69 10*3/uL 1.09-3.23 L = 731-0) MONO x10^3 (test code 0.19 10*3/uL 0.36-1.02 L = 742-7) EOS x10^3 (test code = <0.03 0.06-0.53 L 711-2) BASO x10^3 (test code <0.03 0.01-0.09 = 704-7) REACT LYMPHS (test Rare code = 6847812379) GIANT PLATELETS (test Present See_Comment A [Auto mated code = 5908-9) message] The system which generated this result transmitted reference range : (none). The reference range was not used to interpret this result as normal/abnormal . Lab Interpretation Abnormal (test code = 84101-8) [facility] CampusABORH TMGOSBDXLYCC5208-28-35 06:58:29 Test Item Value Reference Range Interpretation Comments ABO & RH (test code O Positive Performe d at [facility] = 20) Laboratory Serv [facility] Blood Bank[address] [place] [address]Zitw Free: [phone] A No. [id number] [facility] CampusLEGIONELLA URINARY ANTIGEN [id number] 06:35:00 Test Item Value Reference Range Interpretation Comments Legionella Urinary Negative Negative Antigen (test code = 5639345840) MAGDA (test code = MAGDA) Negative for [...] test. Lab Interpretation (test Normal code = 04977-7) [facility] CampusPNEUMOCOCCAL JRIQCLS3011-53-29 06:35:00 Test Item Value Reference Range Interpretation Comments S. pneumoniae antigen (test code = Negative Negative 9710126764) Lab Interpretation (test code = Normal 21047-5) [facility] CampusType and Screen - ONCE [id number] 05:43:59 Test Item Value Reference Range Interpretation Comments ABO & RH (test code O Positive Performe d at [facility] = 20) Laboratory Serv [facility] Blood Bank[address] [place] [address] Free: [phone] A No. [id number] IAT (test code = Negative Performed a t [facility] 1185) Laboratory Serv [facility] Blood Bank[address] [place] [address]Toll Free: [phone] A No. [id number] [facility] CampusLAB ONLY COVID WFKKGDENQWFPWJ5686-98-48 04:52:00COVID DMT InterpretationInterpretation/Recommendations: Molecular NAAT Tests for Active Infection with the SARS-CoV-2 Virus: The current test result is positive for the SARS-CoV-2 virus that causes COVID-19 illness. In agtl-qj-saaqjbgl illness, the patient may be considered no longer infectious when it has been after 10 days since symptom onset, the patient has been afebrile for 24 hours without the use of fever-reducing medications, AND other symptoms of COVID-19 are improving. However, in patientswho have been severely ill with COVID-19 or are severely immunocompromised, isolation up to 20 days a fter symptom onset is recommended. Asymptomatic patients are [...] COVID-19 testing the patient has had at [facility], including molecular NAAT testing(more commonly known as PCR testing and Rapid ID Now testing) and antibody testing. It does not takeinto account any testing that a patient has had outside of the [facility] medical record. [facility] LABORATORY SERVICESCOVID VgwvvhzBJNH-EbZ-5 Rapid ID NOW (no units) ? ? Date ? Value ? 10/28/2020 ? Positive (A) ? [facility]2020-10-30 00:03:00 Test Item Value Reference Range Interpretation Comments POCT GLU (test code = 7583192167) 208 mg/dL 70-110 H Lab Interpretation (test code = Abnormal 14679-8) [facility] GLUCOSE (AUTOMATED)2020-10-29 18:33:00 Test Item Value Reference Range Interpretation Comments POCT GLU (test code = 9169375346) 182 mg/dL 70-110 H Lab Interpretation (test code = Abnormal 27867-6) [facility] CampusPROCALCITONIN2021-02-23 17:09:00 Test Item Value Reference Range Interpretation Comments Procalcitonin (test 0.41 ng/mL <0.07 H code = 7869121824) MAGDA (test code = MAGDA) INTERPRETATION OF [...] lung abscess/empyema. For further information please refer to:[email or web address] Lab Interpretation Abnormal (test code = 98410-7) [facility] CampusPOCT GLUCOSE (AUTOMATED)2020-10-29 14:11:00 Test Item Value Reference Range Interpretation Comments POCT GLU (test code = 8596149650) 164 mg/dL 70-110 H Lab Interpretation (test code = Abnormal 69904-9) [facility] [id number] 12:13:00 Test Item Value Reference Range Interpretation Comments TROPONIN I (test 0.004 ng/mL See_Comment [Automated code = 7292017079) message] The system which generated this result [...] ? Lab Interpretation Normal (test code = 28543-2) [facility] MET[facility]OLIC PAN[facility] (55868)2020-10-29 12:04:00 Test Item Value Reference Range Interpretation Comments NA (test code = 136 mmol/L 135-145 6335921862) K (test code = 3.6 mmol/L 3.5-5.0 6681521931) CL (test code = 108 mmol/L 98-108 8553025119) CO2 TOTAL (test code = 19 mmol/L 23-31 L 1745150358) AGAP (test code = 2-16 8995428110) BUN (test code = 15 mg/dL 7-23 9256307125) GLUCOSE (test code = 165 mg/dL 70-110 H 1698252354) CREATININE (test code = 0.88 mg/dL 0.60-1.25 8980255468) TOTAL BILI (test code = 0.5 mg/dL 0.1-1.3 7478518973) CALCIUM (test code = 8.2 mg/dL 8.6-10.6 L 0848813460) T PROTEIN (test code = 6.7 g/dL 6.3-8.2 2596561936) ALBUMIN (test code = 3.6 g/dL 3.5-5.0 8113048492) ALK PHOS (test code = 72 U/L 34-122 0570319732) ALTv (test code = 36 U/L 5-50 1742-6) AST(SGOT) (test code = 64 U/L 13-40 H 5479423030) eGFR Calculation mL/min/1.73m2 (Non-) (test code = 0451190477) eGFR Calculation mL/min/1.73m2 () (test code = 8465314294) MAGDA (test code = MAGDA) Association of [...] tests). Lab Interpretation Abnormal (test code = 56323-8) [facility] with [id number] 11:53:00 Test Item Value Reference Range Interpretation [...] RDW-SD (test code = 38.6 fL 38.5-51.6 25018-0) RDW-CV (test code = 13.1 % 12.1-15.4 788-0) PLT (test code = See_Comment L [Automated 777-3) message] The sy stem which generated this result transmitted reference range : 150 - 328 10*3/ ?L. The reference r jaime was not used to interpret this result as normal/abnormal . MPV (test code = 11.1 fL 9.8-13.0 05256-5) IPF % (test code = 3.2 % 1.2-10.7 Platelet count 2694252861) measured by fluorescence method. NRBC/100 WBC (test See_Comment [Automat ed code = 0557274308) message] The system which generated this result transmitted reference range : 0.0 - 10.0 /100 WBCs. The refer ence range was not u sed to interpret th is result as normal/abnormal . NRBC x10^3 (test code <0.01 See_Comment [Auto mated = 2968986176) message] The s ystem which generated this result transmitted reference range : 10*3/?L. The reference range was not used to interpret this result as normal/abnormal . GRAN MAT (NEUT) % 50.3 % (test code = 770-8) IMM GRAN % (test code 0.40 % = 2474616965) LYMPH % (test code = 41.3 % 736-9) MONO % (test code = 8.0 % 5905-5) EOS % (test code = 0.0 % 713-8) BASO % (test code = 0.0 % 706-2) GRAN MAT x10^3(ANC) 1.13 10*3/uL 1.99-6.95 L (test code = 7038735241) IMM GRAN x10^3 (test <0.03 0.00-0.06 code = 9122435320) LYMPH x10^3 (test code 0.93 10*3/uL 1.09-3.23 L = 731-0) MONO x10^3 (test code 0.18 10*3/uL 0.36-1.02 L = 742-7) EOS x10^3 (test code = <0.03 0.06-0.53 L 711-2) BASO x10^3 (test code <0.03 0.01-0.09 = 704-7) Lab Interpretation Abnormal (test code = 10842-5) [facility]ST 1 [id number] 04:28:14 Patchy pulmonary opacities suggestive of an [...] silhouette isnormal in size. No acute osseous abnormalities.IMPRESSIONPatchy pulmonary opacities suggestive of an atypical infectious orinflammatory process, consistent with positive COVID status.Preliminary Report Dictated by Resident: Maximiliano Hudson MD., have reviewed this study and agree with theabove report.[facility] WITH [id number] 02:10:00 Test Item Value Reference Range Interpretation Comments WBC (test code = See_Comment L [Automated 0290-2) message] The sy stem which generated this [...] (test code = 37.9 fL 38.5-51.6 L 57265-3) RDW-CV (test code = 13.0 % 12.1-15.4 788-0) PLT (test code = See_Comment L [Automated 777-3) message] The sy stem which generated this result transmitted reference range : 150 - 328 10*3/ ?L. The reference r jaime was not used to interpret this result as normal/abnormal . MPV (test code = 10.8 fL 9.8-13.0 66197-0) NRBC/100 WBC (test See_Comment [Automat ed code = 8819963195) message] The system which generated this result transmitted reference range : 0.0 - 10.0 /100 WBCs. The refer ence range was not u sed to interpret th is result as normal/abnormal . NRBC x10^3 (test code <0.01 See_Comment [Auto mated = 7054213397) message] The s ystem which generated this result transmitted reference range : 10*3/?L. The reference range was not used to interpret this result as normal/abnormal . GRAN MAT (NEUT) % 57.6 % (test code = 770-8) IMM GRAN % (test code 0.40 % = 6715808483) LYMPH % (test code = 35.0 % 736-9) MONO % (test code = 6.6 % 5905-5) EOS % (test code = 0.0 % 713-8) BASO % (test code = 0.4 % 706-2) GRAN MAT x10^3(ANC) 1.30 10*3/uL 1.99-6.95 L (test code = 6385629925) IMM GRAN x10^3 (test <0.03 0.00-0.06 code = 8840772237) LYMPH x10^3 (test code 0.79 10*3/uL 1.09-3.23 L = 731-0) MONO x10^3 (test code 0.15 10*3/uL 0.36-1.02 L = 742-7) EOS x10^3 (test code = <0.03 0.06-0.53 L 711-2) BASO x10^3 (test code <0.03 0.01-0.09 = 704-7) Lab Interpretation Abnormal (test code = 74695-1) [facility] [id number] 01:55:00 Test Item Value Reference Range Interpretation Comments TROPONIN I (test 0.004 ng/mL See_Comment [Automated code = 8683423522) message] The system which generated this result [...] ? Lab Interpretation Normal (test code = 41179-5) [facility]AL [id number] 01:52:00 Test Item Value Reference Range Interpretation Comments NT-proBNP (test code 65 pg/mL See_Comment [Autom ated = 8055108291) message] The system which generated this result transmitted reference range : <=125. The reference range was not used to interpret this result as normal/abnormal . MAGDA (test code = MAGDA) Biotin has been reported to cause a negative bias, interpret results relative to patient's use of biotin. Lab Interpretation Normal (test code = 12724-4) [facility]URINALYSIS2021-02-23 01:52:00 Test Item Value Reference Range Interpretation Comments APPEARANCE (test code = Hazy Clear A 2216681472) COLOR (test code = Leigh Yellow A 1309589446) PH (test code = 4.8-8.0 8110232834) SP GRAVITY (test code = 1.003-1.030 H 2773436674) GLU U QUAL (test code = Normal Normal 5835052425) BLOOD (test code = Negative Negative 8191547542) KETONES (test code = 5 mg/dL Negative A 1228893783) PROTEIN (test code = 30 mg/dL Negative A 2887-8) UROBILIN (test code = 4.0 mg/dL Normal A 9694349824) BILIRUBIN (test code = 2 mg/dL Negative A 6577719280) NITRITE (test code = Negative Negative 1752828925) LEUK WALT (test code = Negative Negative 9995702531) RBC/HPF (test code = See_Comment [Autom ated message] 2476515569) The system IZEA generated this result transmit liliana reference range : 0 - 3 HPF. The refe rence range was not u sed to interpret th is result as normal/abnormal . WBC/HPF (test code = See_Comment H [Autom ated message] 3417252001) The system IZEA generated this result transmit liliana reference range : 0 - 5 HPF. The refe rence range was not u sed to interpret th is result as normal/abnormal . BACTERIA (test code = Negative Negative 3987133706) MUCOUS (test code = Slight Negative LPF A 7501826229) SQ EPITH (test code = <1 HPF 1789801871) HYAL CAST (test code = See_Comment H [Aut omated message] 5135513962) The system whic h generated this result transmit liliana reference range : <=2 LPF. The refere nce range was not u sed to interpret th is result as normal/abnormal . Lab Interpretation (test Abnormal code = 13265-0) [facility]D-[id number] 01:50:00 Test Item Value Reference Interpretation Comments Range D-DIMER (test code = See_Comment H [Autom ated 2862114971) message] The system which generated this result [...] diagnosis. Lab Interpretation Abnormal (test code = 43357-7) [facility]. METABOLIC PANEL (86003)2020-10-29 01:43:00 Test Item Value Reference Range Interpretation Comments NA (test code = 137 mmol/L 135-145 7114574010) K (test code = 3.7 mmol/L 3.5-5.0 1197688135) CL (test code = 107 mmol/L 98-108 2688836618) CO2 TOTAL (test code = 20 mmol/L 23-31 L 6194204070) AGAP (test code = 2-16 0767520116) BUN (test code = 15 mg/dL 7-23 3999166307) GLUCOSE (test code = 220 mg/dL 70-110 H 2028321145) CREATININE (test code = 1.07 mg/dL 0.60-1.25 2565747967) TOTAL BILI (test code = 0.6 mg/dL 0.1-1.6 3435430812) CALCIUM (test code = 8.2 mg/dL 8.6-10.6 L 6745847874) T PROTEIN (test code = 7.2 g/dL 6.3-8.2 8209958861) ALBUMIN (test code = 3.8 g/dL 3.5-5.0 1993605995) ALK PHOS (test code = 69 U/L 34-122 7715872467) ALTv (test code = 38 U/L 5-50 1742-6) AST(SGOT) (test code = 66 U/L 13-40 H 0584740677) eGFR Calculation mL/min/1.73m2 (Non-) (test code = 8535678512) eGFR Calculation mL/min/1.73m2 () (test code = 1351387561) MAGDA (test code = MAGDA) Association of [...] tests). Lab Interpretation Abnormal (test code = 90078-1) [facility]COVID-[facility] (ID NOW RAPID TESTING)2020-10-29 01:36:00 Test Item Value Reference Range Interpretation Comments SARS-CoV-2 Rapid ID NOW Positive Not Detected A (test code = 96775-0) MAGDA (test code = MAGDA) ID NOW COVID-19 Assay is an isothermal nucleic acid amplification test intended for the qualitative detection of nucleic acid from SARS-CoV-2 viral RNA in nasopharyngeal ([employer]) specimens. It is used under Emergency Use [...] indicated. Lab Interpretation Abnormal (test code = 19163-2) [facility] WITH [id number] 17:06:00 Test Item Value Reference Range Interpretation Comments WBC (test code = See_Comment [Automated 7590-2) message] The sy stem which generated this result transmitted reference range : 4.20 - 10.70 10*3/?L. The reference range was not used to interpret this result as normal/abnormal . RBC (test code = See_Comment [Automated 269-8) message] The sy stem which generated this [...] RDW-SD (test code = 40.0 fL 38.5-51.6 18092-4) RDW-CV (test code = 13.5 % 12.1-15.4 788-0) PLT (test code = See_Comment [Automated 777-3) message] The sy stem which generated this result transmitted reference range : 150 - 328 10*3/ ?L. The reference r jaime was not used to interpret this result as normal/abnormal . MPV (test code = 10.6 fL 9.8-13 38602-8) NRBC/100 WBC (test See_Comment [Automat ed code = 7266915620) message] The system which generated this result transmitted reference range : 0.0 - 10.0 /100 WBCs. The refer ence range was not u sed to interpret th is result as normal/abnormal . NRBC x10^3 (test code <0.01 See_Comment [Auto mated = 8014222623) message] The s ystem which generated this result transmitted reference range : 10*3/?L. The reference range was not used to interpret this result as normal/abnormal . GRAN MAT (NEUT) % 55.2 % (test code = 770-8) IMM GRAN % (test code 0.20 % = 0591537060) LYMPH % (test code = 32.5 % 736-9) MONO % (test code = 9.3 % 5905-5) EOS % (test code = 2.1 % 713-8) BASO % (test code = 0.7 % 706-2) GRAN MAT x10^3(ANC) 3.15 10*3/uL 1.99-6.95 (test code = 5848949694) IMM GRAN x10^3 (test <0.03 0-0.06 code = 3131286985) LYMPH x10^3 (test code 1.85 10*3/uL 1.09-3.23 = 731-0) MONO x10^3 (test code 0.53 10*3/uL 0.36-1.02 = 742-7) EOS x10^3 (test code = 0.12 10*3/uL 0.06-0.53 711-2) BASO x10^3 (test code 0.04 10*3/uL 0.01-0.09 = 704-7) Lab Interpretation Abnormal (test code = 44713-9) [facility] CampusLIPID PANEL (44226)(TOTAL CHOLESTEROL, TRIGLYCERIDES, HDL)2019-09-29 16:53:00 Test Item Value Reference Range Interpretation Comments CHOL (test code = 142 mg/dL 120-200 9616495773) HDL (test code = 40 mg/dL >40 L 9297927201) HDLC RATIO (test code = See_Comment [Au tomated message] 0302313463) The system IZEA generated this result transmit liliana reference range : <=5.0. The refe rence range was not u sed to interpret th is result as normal/abnormal . TRIG (test code = 234 mg/dL 30-170 H 2732516818) LDL CHOL (test code = 55 mg/dL See_Comment [Auto mated message] 26198-3) The system IZEA generated this result transmit liliana reference range : <=160. The refe rence range was not u sed to interpret th is result as normal/abnormal . VLDL (test code = 47 mg/dL 5-60 3537007564) Lab Interpretation (test Abnormal code = 17821-4) [facility] MET[facility]OLIC PANEL (54429)2019-09-29 16:53:00 Test Item Value Reference Range Interpretation Comments NA (test code = 138 mmol/L 135-145 2804936044) K (test code = 4.6 mmol/L 3.5-5 5474237356) CL (test code = 103 mmol/L 98-108 0196829281) CO2 TOTAL (test code = 23 mmol/L 23-31 1880154337) AGAP (test code = 2-16 9585074683) BUN (test code = 12 mg/dL 7-23 0054213606) GLUCOSE (test code = 166 mg/dL 70-110 H 1946951136) CREATININE (test code = 0.91 mg/dL 0.6-1.25 7063851908) TOTAL BILI (test code = 0.5 mg/dL 0.1-1.8 3808503188) CALCIUM (test code = 9.5 mg/dL 8.6-10.6 3983773301) T PROTEIN (test code = 7.9 g/dL 6.3-8.2 1876405816) ALBUMIN (test code = 4.2 g/dL 3.5-5 6985648770) ALK PHOS (test code = 113 U/L 34-122 0526383556) ALTv (test code = 41 U/L 5-50 1742-6) AST(SGOT) (test code = 57 U/L 13-40 H 5089321197) eGFR Calculation mL/min/1.73m2 (Non-) (test code = 7428954735) eGFR Calculation mL/min/1.73m2 () (test code = 0137163410) MAGDA (test code = MAGDA) Association of [...] tests). Lab Interpretation Abnormal (test code = 76984-3) [facility] HEMOGLOBIN A1C [id number] 15:27:00 Test Item Value Reference Range Interpretation Comments POCT HBA1C (test code = 4548-4) 7.6% 4-6 [facility]
[2023-01-13] MEDS ORDERED: LIDOCAINE 1% MPF 30 ML VIAL ONE (01:52)
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
--- NOTE | 2023-01-13 02:18 | EDPHYS ---
Physician Documentation [facility] Name: Baldomero Murrell Age: 58 yrs Sex: Male : 1965 Arrival Date: 01/13/2023 Time: 01:08 Bed 13 Private MD: ED Physician David Bernard HPI: 01/13 02:11 This 58 yrs old Male presents to ER via Ambulatory with complaints of dana Laceration To Hand. 02:11 The patient has a laceration related to: unk. dana 02:11 Onset: The symptoms/episode began/occurred just prior to arrival. It is unknown whether dana or not the patient has had similar symptoms in the past. Historical: - Allergies: 01:13 Iodine; as6 - PMHx: 01:13 diabetes mellitus; Hypertensive disorder; as6 - PSHx: 01:13 eye; knee; as6 - Immunization history:: Client reports receiving the 2nd dose of the Covid vaccine, pfizer Last tetanus immunization: unknown. - Social history:: Smoking status: Patient denies any tobacco usage or history of. ROS: 02:13 Constitutional: Negative for fever, chills, and weight loss, Eyes: Negative for injury, dana pain, redness, and discharge, ENT: Negative for injury, pain, and discharge, Neck: Negative for injury, pain, and swelling, Cardiovascular: Negative for chest pain, palpitations, and edema, Respiratory: Negative for shortness of breath, cough, wheezing, and pleuritic chest pain, Abdomen/GI: Negative for abdominal pain, nausea, vomiting, diarrhea, and constipation, Back: Negative for injury and pain, : Negative for injury, bleeding, discharge, and swelling, Skin: Negative for injury, rash, and discoloration, Neuro: Negative for headache, weakness, numbness, tingling, and seizure, Psych: Negative for depression, anxiety, suicide ideation, homicidal ideation, and hallucinations, Allergy/Immunology: Negative for hives, rash, and allergies, Endocrine: Negative for neck swelling, polydipsia, polyuria, polyphagia, and marked weight changes, Hematologic/Lymphatic: Negative for swollen nodes, abnormal bleeding, and unusual bruising. 02:13 MS/extremity: Positive for injury or acute deformity, laceration, swelling, of the . Exam: 02:13 Constitutional: This is a well developed, well nourished patient who is awake, alert, dana and in no acute distress. Head/Face: Normocephalic, atraumatic. Eyes: Pupils equal round and reactive to light, extra-ocular motions intact. Lids and lashes normal. Conjunctiva and sclera are non-icteric and not injected. Cornea within normal limits. Periorbital areas with no swelling, redness, or edema. ENT: Nares patent. No nasal discharge, no septal abnormalities noted. Tympanic membranes are normal and external auditory canals are clear. Oropharynx with no redness, swelling, or masses, exudates, or evidence of obstruction, uvula midline. Mucous membranes moist. Neck: Trachea midline, no thyromegaly or masses palpated, and no cervical lymphadenopathy. Supple, full range of motion without nuchal rigidity, or vertebral point tenderness. No Meningismus. Chest/axilla: Normal chest wall appearance and motion. Nontender with no deformity. No lesions are appreciated. Cardiovascular: Regular rate and rhythm with a normal S1 and S2. No gallops, murmurs, or rubs. Normal PMI, no JVD. No pulse deficits. Respiratory: Lungs have equal breath sounds bilaterally, clear to auscultation and percussion. No rales, rhonchi or wheezes noted. No increased work of breathing, no retractions or nasal flaring. Abdomen/GI: Soft, non-tender, with normal bowel sounds. No distension or tympany. No guarding or rebound. No evidence of tenderness throughout. Back: No spinal tenderness. No costovertebral tenderness. Full range of motion. Male : Normal genitalia with no discharge or lesions. Skin: Warm, dry with normal turgor. Normal color with no rashes, no lesions, and no evidence of cellulitis. Neuro: Awake and alert, GCS 15, oriented to person, place, time, and situation. Cranial nerves II-XII grossly intact. Motor strength 5/5 in all extremities. Sensory grossly intact. Cerebellar exam normal. Normal gait. Psych: Awake, alert, with orientation to person, place and time. Behavior, mood, and affect are within normal limits. 02:13 Musculoskeletal/extremity: Extremities: noted in the palmar aspect of distal phalanx of left little finger, palmar aspect of proximal phalanx of left ring finger and inner aspect of left palm: ROM: no acute changes, intact in all extremities, Circulation is intact in all extremities. Sensation intact. Compartment Syndrome exam of affected extremity: is normal. 02:13 Skin: injury, laceration(s), the wound is approximately 2.5 cm(s), with a depth of .25 cm(s), of the left hand, the second wound is approximately 1 cm(s), with a depth of .25 cm(s), of the left hand, the third wound is approximately 1.5 cm(s), with a depth of .15 cm(s), of the left hand. Vital Signs: 01:14 BP 141 / 93; Pulse 103; Resp 18 S; Temp 98.5(O); Pulse Ox 96% on R/A; Weight 80.74 kg as6 (R); Height 5 ft. 10 in. (R); Pain 8/10; 01:14 Body Mass Index 25.54 (80.74 kg, 177.8 cm) as6 01:14 Pain Scale: Adult as6 MDM: 01:17 Patient medically screened. [facility] 02:15 Differential diagnosis: superficial laceration, tendon injury, vascular injury, open dana fracture, contusion, tendonitis. Data reviewed: vital signs, nurses notes. Consideration of Admission/Observation Escalation of care including admission/observation considered. I considered the following discharge prescriptions or medication management in the emergency department Medications were administered in the Emergency Department. See MAR. Test considered but Not performed: X-ray: no x ray. Care significantly affected by the following chronic conditions: Diabetes, Hypertension. 01/13 01:29 Order name: Dressing - Wound; Complete Time: 02:22 [facility] 01/13 01:29 Order name: Gloves, Sterile; Complete Time: 01:50 [facility] 01/13 01:29 Order name: Prolene, Sutures; Complete Time: 01:50 [facility] 01/13 01:29 Order name: Setup Suture Tray; Complete Time: 01:50 [facility] Administered Medications: 02:14 Drug: Tetanus Toxoid,Adsorbed IM 0.5 ml {Sales Representative Education Courses: [employer]. Exp: 02/07/2024. jb4 Lot #: [id number]. } Route: IM; Site: right deltoid; 02:15 Drug: Cephalexin PO 500 mg Route: PO; jb4 02:34 Drug: Ngzrnlmm-Vzqliutbct-Tsjwesnkx Topical Ointment 1 application Route: Topical; jb4 Site: wound; 02:34 Drug: [place] PO 10 mg-325 mg 1 tabs Route: PO; jb4 Disposition Summary: 01/13/23 02:17 Discharge Ordered Location: Home [facility] Problem: new dana Symptoms: have improved dana Condition: Stable dana Diagnosis - Laceration without foreign body of left hand, initial encounter dana Followup: dana - With: Private Physician - When: 2 - 3 days - Reason: Recheck today's complaints, Continuance of care, Re-evaluation by your physician Followup: dana - With: Gunner Blake MD - When: 2 - 3 days - Reason: Recheck today's complaints, Re-evaluation by your physician Discharge Instructions: - Discharge Summary Sheet dana - Laceration Care, Adult dana - Laceration Care, Adult, [id number] [facility] Forms: - Medication Reconciliation Form [facility] - Thank You Letter dana - Antibiotic Education dana - Prescription Opioid Use [facility] Prescriptions: - acetaminophen-codeine 300-30 mg Oral tablet - take 2 tablet by ORAL route every 6 hours; 20 tablet; Refills: 0, Product [facility] Selection Permitted - Centany 2 % Topical ointment - apply 1 application by TOPICAL route 4 times per day; 30 gram tube; Refills: 0, [facility] Product Selection Permitted - Cephalexin 500 mg Oral Capsule - take 1 capsule by ORAL route every 6 hours for 10 days; 28 capsule; Refills: 0, [facility] Product Selection Permitted Signatures: Dispatcher [employer] David Aranda MD MD cha Bryson, James RN RN jb4 Michael De Paz RN RN as6
[2023-01-13] MEDS ORDERED: CEPHALEXIN 250 MG CAP ONE (02:23)
[2023-01-13] MEDS ORDERED: BACI/NEOMYCIN/POLY OINT 15GM TOP ONE (02:24)
[2023-01-13] MEDS ORDERED: TETANUS & DIPHTHERIA TOX,ADULT 0.5 ML VIAL ONE (02:24)
[2023-01-13] MEDS ORDERED: HYDROCODONE/APAP 10/325 TAB ONE (02:38)
[2023-01-13 07:45] VITALS: BP 141/93; TEMP 98.5; O2SAT 96
== END 2023-01-13 02:38 | disposition home or self-care (01) ==
LOC: ER 01:08
DX: S61.412A Laceration without foreign body of left hand, initial encounter (principal); Z23 Encounter for immunization; Z88.8 Allergy status to other drugs, medicaments and biological substances
CPT/HCPCS: 90714; J2001